=== PATIENT | female | born 1955 | race Caucasian/White ===

== ENCOUNTER 2020-06-01 11:42 | Outpatient (REF) | payer MEDICARE, SELFPAY | END 2020-06-01 11:43 | disposition home or self-care (01) | LOC: HO.LAB 11:42 | PROVIDERS: Visit Provider Internal Medicine | DX: Z20.828 Contact with and (suspected) exposure to other viral communicable diseases (principal) | CPT/HCPCS: C9803; U0003 ==

== ENCOUNTER 2022-02-11 20:47 | Emergency (ER) | payer MEDICARE, OTHER, SELFPAY ==
--- NOTE | ~2022-02-11 | XR_ITS ---
EXAMINATION: XR CHEST CLINICAL INFORMATION: Chest pain COMPARISON: None TECHNIQUE: Frontal view of the chest was obtained. FINDINGS: No significant abnormality is noted involving the heart, lungs, mediastinum, or soft tissues. There are degenerative changes of the spine. XR/XR chest 1V IMPRESSION: Unremarkable examination.
--- NOTE | 2022-02-11 20:50 | ED.CHESTPAIN ---
HPI - Chest Pain General Chief Complaint: Chest Pain Stated Complaint: chest pain Time Seen by Provider: 02/11/22 20:49 Source: patient Mode of arrival: EMS Limitations: no limitations History of Present Illness HPI narrative: Patient's anxiety , depression, hypertension, hypothyroidism brought by EMS as she woke up from nap with mid chest pain radiating to both arms feels sharp and pressure feeling no nausea no vomiting no shortness of breath pain gets worse with taking a deep breath no known coronary artery disease in the past. Patient denies any significant anxiety at this time feel depressed as usual patient received 4 baby aspirin prior to arrival patient also complaining of dysuria and frequency for last 2 days no fever or chills no flank pain Related Data Previous Rx's Medication Instructions Recorded cefuroxime axetil 500 mg tablet 500 mg PO BID 7 days #14 tabs 02/12/22 Allergies Allergy/AdvReac Type Severity Reaction Status Date / Time Sulfa (Sulfonamide Allergy Unknown HIVES Unverified 03/16/20 18:29 Antibiotics) [SULFA(SULFONAMIDE ANTIBIOTICS)] Review of Systems Review of Systems: Yes all other systems are reviewed and are negative [facility] Social History Social History Advance Directives: No Advance Directives Information Provided: No Patient : No Physical Exam Vital Signs: Vital Signs: Last Vital Signs Temp 97.6 F 02/12/22 00:29 Pulse 83 02/12/22 00:29 Resp 14 02/12/22 00:29 BP 148/76 H 02/12/22 00:29 Pulse Ox 98 02/12/22 00:29 O2 Del Method 02/12/22 00:29 BMI result Body Mass Index 34.4 Appearance: Alert. Oriented X3. No acute distress. anxious Eyes: PERRLA, No Nystagmus ENT: Pharynx normal. Oral Mucosa moist Neck: Normal inspection. Neck supple. CVS: Normal heart rate and rhythm. Pulses normal. Respiratory: No respiratory distress. Equal air entry bilateral, no wheezing/rales/rhonchi Abdomen: Soft and nontender. Bowel sounds are present, no mass palpable, no CVA tenderness Skin: Skin warm and dry. Normal skin color. Normal skin turgor. Extremities: No lower extremity edema. No calf tenderness Neuro: Oriented X 3. No motor deficit. No sensory deficit.No cerebellar signs , cranial nerves II-XII intact MDM - Chest Pain MDM Narrative Medical decision making narrative: Patient with atypical chest pain with anxiety and headaches EKG without any acute ischemic changes 2 sets of cardiac enzymes negative will discharge patient home advised to follow-up with supervisor scouring pads/PCP Lab Data Attestation: I reviewed the patient's lab results. Result diagrams: 02/11/22 21:16 02/11/22 21:16 Labs: Lab Results 02/11/22 02/11/22 02/11/22 Range/Units 20:58 21:16 21:16 WBC 9.0 (4.8-10.8) X10*3/uL RBC 4.64 (4.20-5.50) X10*6/uL Hgb 13.7 (12.0-16.0) g/dl Hct 40.1 (37.0-47.0) % MCV 86.4 (80.0-98.0) fL MCH 29.5 (27.0-33.0) pg MCHC 34.2 (31.0-35.0) g/dl RDW 15.0 (11.0-16.0) % Plt Count 324 (160-400) X10*3/uL MPV 9.7 (9.4-12.3) fL Immature Gran % (Auto) 0.2 (0.0-0.4) % Neut % (Auto) 55.1 (45-73) % Lymph % (Auto) 31.6 (20-40) % [place] % (Auto) 9.4 (2-11) % Eos % (Auto) 2.8 (0-4) % Baso % (Auto) 0.9 (0-2) % Lymph # (Auto) 2.9 (1.2-4.9) X10*3/uL [place] # (Auto) 0.9 (0.1-1.2) X10*3/uL Eos # (Auto) 0.3 (0.0-0.4) X10*3/uL Baso # (Auto) 0.1 (0.0-0.2) X10*3/uL Abs Immat Gran (auto) 0.02 (0.00-0.03) X10*3/uL Absolute Neuts (auto) 5.0 (2.0-8.3) x10*3/uL Absolute Nucleated RBC 0.000 (0.0-0.012) X10*3/uL Nucleated RBC % (auto) 0.0 (0.0-0.2) /100WBC PT (10.0-13.1) SEC INR (0.9-1.1) D-Dimer High Sensitivty NG/ML Sodium 140 (135-145) mmol/L Potassium 3.5 (3.3-5.1) mmol/L Chloride 100 (96-108) mmol/L Carbon Dioxide 27 (22-29) mmol/L Anion Gap 17 (12-20) BUN 26 H (9-16) mg/dL Creatinine 1.16 (0.5-1.4) mg/dL Estim Creat Clear Calc 53.5 Estimated GFR 47 POC Glucose 94 (60-115) mg/dL Random Glucose 103 (60-115) mg/dL Calcium 10.1 (8.4-10.2) mg/dL Magnesium 2.3 (1.6-2.6) mg/dL Total Bilirubin 0.6 (0.0-1.0) mg/dL AST 31 (5-31) U/L ALT 41 H (0-31) U/L Alkaline Phosphatase 96 (39-117) U/L Troponin I High Sens (<3.5-17.0) ng/L Total Protein 8.2 H (6.5-8.0) g/dL Albumin 4.4 (3.5-5.0) g/dL TSH 16.65 H (0.32-4.0) uIU/mL Urine Color Urine Appearance Urine pH (5.0-8.0) Ur Specific [place] (1.005-1.025) Urine Protein (NEG-TRACE) MG/DL Urine Glucose (UA) (NEG) MG/DL Urine Ketones (NEG) MG/DL Urine Blood (NEG) Urine Nitrite (NEG) Ur Leukocyte Esterase (Negative) Urine RBC (0) /HPF Urine WBC (0-4) /HPF Ur Squamous Epith Cells /LPF Urine Bacteria /LPF COVID-19 ([facility]BERTO) (Negative) COVID-19 Clin Com 02/11/22 02/11/22 02/11/22 Range/Units 21:16 21:16 21:16 WBC (4.8-10.8) X10*3/uL RBC (4.20-5.50) X10*6/uL Hgb (12.0-16.0) g/dl Hct (37.0-47.0) % MCV (80.0-98.0) fL MCH (27.0-33.0) pg MCHC (31.0-35.0) g/dl RDW (11.0-16.0) % Plt Count (160-400) X10*3/uL MPV (9.4-12.3) fL Immature Gran % (Auto) (0.0-0.4) % Neut % (Auto) (45-73) % Lymph % (Auto) (20-40) % [place] % (Auto) (2-11) % Eos % (Auto) (0-4) % Baso % (Auto) (0-2) % Lymph # (Auto) (1.2-4.9) X10*3/uL [place] # (Auto) (0.1-1.2) X10*3/uL Eos # (Auto) (0.0-0.4) X10*3/uL Baso # (Auto) (0.0-0.2) X10*3/uL Abs Immat Gran (auto) (0.00-0.03) X10*3/uL Absolute Neuts (auto) (2.0-8.3) x10*3/uL Absolute Nucleated RBC (0.0-0.012) X10*3/uL Nucleated RBC % (auto) (0.0-0.2) /100WBC PT 10.5 (10.0-13.1) SEC INR 0.9 (0.9-1.1) D-Dimer High Sensitivty < 150 NG/ML Sodium (135-145) mmol/L Potassium (3.3-5.1) mmol/L Chloride (96-108) mmol/L Carbon Dioxide (22-29) mmol/L Anion Gap (12-20) BUN (9-16) mg/dL Creatinine (0.5-1.4) mg/dL Estim Creat Clear Calc Estimated GFR POC Glucose (60-115) mg/dL Random Glucose (60-115) mg/dL Calcium (8.4-10.2) mg/dL Magnesium (1.6-2.6) mg/dL Total Bilirubin (0.0-1.0) mg/dL AST (5-31) U/L ALT (0-31) U/L Alkaline Phosphatase (39-117) U/L Troponin I High Sens 7.5 (<3.5-17.0) ng/L Total Protein (6.5-8.0) g/dL Albumin (3.5-5.0) g/dL TSH (0.32-4.0) uIU/mL Urine Color Urine Appearance Urine pH (5.0-8.0) Ur Specific [place] (1.005-1.025) Urine Protein (NEG-TRACE) MG/DL Urine Glucose (UA) (NEG) MG/DL Urine Ketones (NEG) MG/DL Urine Blood (NEG) Urine Nitrite (NEG) Ur Leukocyte Esterase (Negative) Urine RBC (0) /HPF Urine WBC (0-4) /HPF Ur Squamous Epith Cells /LPF Urine Bacteria /LPF COVID-19 ([facility]ERTO) Negative (Negative) COVID-19 Clin Com See Note 02/11/22 02/11/22 Range/Units 23:21 23:47 WBC (4.8-10.8) X10*3/uL RBC (4.20-5.50) X10*6/uL Hgb (12.0-16.0) g/dl Hct (37.0-47.0) % MCV (80.0-98.0) fL MCH (27.0-33.0) pg MCHC (31.0-35.0) g/dl RDW (11.0-16.0) % Plt Count (160-400) X10*3/uL MPV (9.4-12.3) fL Immature Gran % (Auto) (0.0-0.4) % Neut % (Auto) (45-73) % Lymph % (Auto) (20-40) % [place] % (Auto) (2-11) % Eos % (Auto) (0-4) % Baso % (Auto) (0-2) % Lymph # (Auto) (1.2-4.9) X10*3/uL [place] # (Auto) (0.1-1.2) X10*3/uL Eos # (Auto) (0.0-0.4) X10*3/uL Baso # (Auto) (0.0-0.2) X10*3/uL Abs Immat Gran (auto) (0.00-0.03) X10*3/uL Absolute Neuts (auto) (2.0-8.3) x10*3/uL Absolute Nucleated RBC (0.0-0.012) X10*3/uL Nucleated RBC % (auto) (0.0-0.2) /100WBC PT (10.0-13.1) SEC INR (0.9-1.1) D-Dimer High Sensitivty NG/ML Sodium (135-145) mmol/L Potassium (3.3-5.1) mmol/L Chloride (96-108) mmol/L Carbon Dioxide (22-29) mmol/L Anion Gap (12-20) BUN (9-16) mg/dL Creatinine (0.5-1.4) mg/dL Estim Creat Clear Calc Estimated GFR POC Glucose (60-115) mg/dL Random Glucose (60-115) mg/dL Calcium (8.4-10.2) mg/dL Magnesium (1.6-2.6) mg/dL Total Bilirubin (0.0-1.0) mg/dL AST (5-31) U/L ALT (0-31) U/L Alkaline Phosphatase (39-117) U/L Troponin I High Sens 6.3 (<3.5-17.0) ng/L Total Protein (6.5-8.0) g/dL Albumin (3.5-5.0) g/dL TSH (0.32-4.0) uIU/mL Urine Color YELLOW Urine Appearance CLEAR Urine pH 7.0 (5.0-8.0) Ur Specific [place] 1.010 (1.005-1.025) Urine Protein Negative (NEG-TRACE) MG/DL Urine Glucose (UA) Negative (NEG) MG/DL Urine Ketones Negative (NEG) MG/DL Urine Blood Trace (NEG) Urine Nitrite Negative (NEG) Ur Leukocyte Esterase Large (3+) H (Negative) Urine RBC 1-4 (0) /HPF Urine WBC 30-49 H (0-4) /HPF Ur Squamous Epith Cells 1+ /LPF Urine Bacteria 2+ /LPF COVID-19 ([facility]) (Negative) COVID-19 Clin Com ECG Data ECG #1: Attestation: I personally reviewed and interpreted this ECG as follows: Interpretation: Sinus tachycardia with heart rate 113 beats per minute normal interval normal axis nonspecific ST T wave changes no acute ischemia Scores Heart Score History: -0- slightly suspicious ECG: -0- normal Age: -1- >45 - <65 Risk factory: -1- 1 or 2 risk factors Troponin: -0- < or = normal limit Score: 2 Risk: 1.7% Discharge Plan Discharge Clinical Impression: Chest pain, UTI (urinary tract infection) Patient Disposition: Home, Self-Care Instructions: Chest Pain (ED), Urinary Tract Infection in Women (ED) Additional Instructions: Your chest pain is likely not from the heart Follow-up with PCP/supervisor scouring pads for further evaluation including stress test you need to follow-up with your PCP regarding management of hypothyroidism Drink plenty of fluids Antibiotic as advised for urine tract infection Prescriptions: New cefuroxime axetil 500 mg tablet 500 mg PO BID 7 Days Qty: 14 0RF
[2022-02-11 20:53] VITALS: BP 170/100; BP 190/101; PULSE 112; PULSE 130; RESP 18; TEMP 36.8; O2SAT 97; O2SAT 98; BMI 34.4
[2022-02-11 21:00] VITALS: BP 160/93; PULSE 108; O2SAT 99
[2022-02-11 21:01] LABS: Glucose, Whole Blood 94 mg/dL (60-115)
--- NOTE | 2022-02-11 21:08 | ECG_ITS ---
Test Reason : cp Blood Pressure : / mmHG Vent. Rate : 113 BPM Atrial Rate : 113 BPM P-R Int : 152 ms QRS Dur : 082 ms QT Int : 308 ms P-R-T Axes : 054 052 019 degrees QTc Int : 422 ms Sinus tachycardia Nonspecific T wave abnormality Abnormal ECG No previous ECGs available Referred By: Nawaf Simon Electronically Signed By:KOLTON MIKE
[2022-02-11] MEDS: LORazepam 1 MG TABLET PO (21:11)
[2022-02-11] MEDS: Morphine Sulfate 4 MG/ML CARTRIDGE IVPUSH (21:19)
[2022-02-11] MEDS: ondansetron HCL 4 MG/2 ML VIAL IVPUSH (21:19)
[2022-02-11 21:22] LABS: MANUAL DIFF FLAG NO
[2022-02-11 21:23] LABS: Basophils Absolute Auto 0.1 X10*3/uL (0.0-0.2); Basophils Percent Auto 0.9 % (0-2); Eosinophils Absolute Auto 0.3 X10*3/uL (0.0-0.4); Eosinophils Percent Auto 2.8 % (0-4); Hematocrit 40.1 % (37.0-47.0); Hemoglobin 13.7 g/dl (12.0-16.0); Imm Gran Abs Auto 0.02 X10*3/uL (0.00-0.03); Imm Gran Pct Auto 0.2 % (0.0-0.4); Lymphocytes Absolute Auto 2.9 X10*3/uL (1.2-4.9); Lymphocytes Percent Auto 31.6 % (20-40); Mean Corpuscular HGB Conc 34.2 g/dl (31.0-35.0); Mean Corpuscular Hemoglobin 29.5 pg (27.0-33.0); Mean Corpuscular Volume 86.4 fL (80.0-98.0); Mean Platelet Volume 9.7 fL (9.4-12.3); Monocytes Absolute Auto 0.9 X10*3/uL (0.1-1.2); Monocytes Percent Auto 9.4 % (2-11); Neutrophils Percent Auto 55.1 % (45-73); Platelet Count 324 X10*3/uL (160-400); Red Blood Count 4.64 X10*6/uL (4.20-5.50)
[2022-02-11 21:34] LABS: INTERNATIONAL NORM RATIO 0.9 (0.9-1.1); Prothrombin Time 10.5 SEC (10.0-13.1)
[2022-02-11 21:38] LABS: COVID-19 Test Negative (Negative)
[2022-02-11 21:43] LABS: Alanine Aminotransferase 41 U/L (0-31); Albumin Level 4.4 g/dL (3.5-5.0); Alkaline Phosphatase 96 U/L (39-117); Anion Gap 17 (12-20); Aspartate Amino Transferase 31 U/L (5-31); Bilirubin Total 0.6 mg/dL (0.0-1.0); Blood Urea Nitrogen 26 mg/dL (9-16); Calcium 10.1 mg/dL (8.4-10.2); Carbon Dioxide 27 mmol/L (22-29); Chloride 100 mmol/L (96-108); Creatinine Clr Calc Pharmacy 53.5; Estimated Glomerular Filt Rate 47; Glucose Random 103 mg/dL (60-115); Magnesium 2.3 mg/dL (1.6-2.6); Potassium 3.5 mmol/L (3.3-5.1); Sodium 140 mmol/L (135-145); Total Protein 8.2 g/dL (6.5-8.0)
[2022-02-11 21:44] LABS: D Dimer High Sensitivity < 150 NG/ML
[2022-02-11 21:45] LABS: Troponin-I High Sensitivity 7.5 ng/L (<3.5-17.0)
[2022-02-11 22:02] LABS: Thyroid Stimulating Hormone 16.65 uIU/mL (0.32-4.0)
[2022-02-11 22:22] VITALS: BP 148/86; PULSE 75; RESP 20; TEMP 36.7; O2SAT 99
[2022-02-11] MEDS: Butalb/Acetamin/Caff 50/325/40 TABLET 1 TAB PO (22:33)
[2022-02-11 22:34] VITALS: RESP 16
[2022-02-11 23:45] LABS: Troponin-I High Sensitivity 6.3 ng/L (<3.5-17.0)
[2022-02-12 00:03] LABS: Appearance Urine CLEAR; Color Urine YELLOW; Glucose Urine UA Negative (NEG); Leukocyte Esterase Urine Large (3+) (Negative); Nitrite Urine Negative (NEG); Urine Blood Trace (NEG); Urine Ketones Negative (NEG); Urine Protein Negative (NEG-TRACE)
[2022-02-12 00:15] LABS: WBC Urine 30-49 /HPF (0-4)
[2022-02-12 00:16] LABS: Bacteria Urine 2+ /LPF; Squamous Epithelial Cell Urine 1+ /LPF
[2022-02-12 00:29] VITALS: BP 148/76; PULSE 83; RESP 14; TEMP 36.4; O2SAT 98
[2022-02-12 00:45] LABS: Free T4 (Free Thyroxine) 0.74 ng/dL (0.71-1.85)
== END 2022-02-12 00:44 | disposition home or self-care (01) ==
PROVIDERS: Emergency Provider Internal Medicine
DX: R07.9 Chest pain, unspecified (principal); N39.0 Urinary tract infection, site not specified; Z20.822 Contact with and (suspected) exposure to COVID-19; I10 Essential (primary) hypertension; F41.9 Anxiety disorder, unspecified
CPT/HCPCS: 36415; 71045; 80053; 81001; 81003; 82947; 83735; 84439; 84443; 84484; 85025; 85379; 85610; 87635; 93005; 96374; 96375; 99284; 99285; J2270; J2405

== ENCOUNTER 2022-05-05 11:18 | Emergency (ER) | payer MEDICARE, OTHER, SELFPAY ==
--- NOTE | 2022-05-05 11:28 | PC.NURSE ---
CALLED FOR THREAT ANALYST
[2022-05-05 11:42] VITALS: BP 158/88; PULSE 81; RESP 18; TEMP 36.8; O2SAT 97; BMI 33.3
[2022-05-05 12:21] LABS: Appearance Urine Clear; Color Urine Yellow; Glucose Urine UA Negative (Negative); Leukocyte Esterase Urine Small (1+) (Negative); Nitrite Urine Negative (Negative); Specific Gravity - Urine <= 1.005 (1.005-1.025); UMIC TRIGGER UACC YES; Urine Blood Negative (Negative); Urine Ketones Negative (Negative); Urine Protein Negative (Neg-Trace)
[2022-05-05 12:29] LABS: Bacteria Urine None Seen (None Seen); Hyaline Casts Urine 0-2 /LPF (0-2); RBC Urine 0-2 /HPF (0-2); Squamous Epithelial Cell Urine 0-2 /HPF (0-2); UACC Culture Trigger YES; WBC Urine 0-5 /HPF (0-5)
== END 2022-05-05 17:02 | disposition left against medical advice (07) ==
PROVIDERS: Emergency Provider Emergency Medicine
DX: M79.601 Pain in right arm (principal); R30.0 Dysuria; Z79.899 Other long term (current) drug therapy
CPT/HCPCS: 81001; 87086; 99282

== ENCOUNTER 2022-07-16 15:21 | Emergency (ER) | payer MEDICARE, OTHER, SELFPAY ==
--- NOTE | ~2022-07-16 | CT_ITS ---
EXAMINATION: CT CHEST, ABDOMEN AND PELVIS WITHOUT CONTRAST CLINICAL INFORMATION: Chest discomfort/burning and left-sided flank pain with history of kidney stones COMPARISON: No pertinent prior studies are available for comparison. TECHNIQUE: Multidetector volumetric imaging was performed from the thoracic inlet through the pubic symphysis without IV contrast. Sagittal and coronal reformatted images were obtained on the technologist's workstation. This CT examination was performed using dose optimization techniques as appropriate, variously including the following: *Automated exposure control *Adjustment of mA and/or kV according to patient size (this includes techniques or standardized protocols for targeted exams where dose is matched to indication/reason for exam; i.e. extremities or head) *Use of iterative reconstruction technique DLP: 211 chest and 711 abdomen and pelvis mGy-cm FINDINGS: CHEST: Lung: A calcified granuloma is present at the right lung base and at tiny 2 mm noncalcified nodule present at the left apex (7:84). The lungs are otherwise clear without worrisome focal opacity or nodule. Mediastinum: The mediastinum is normal. The central vascular structures are unremarkable. No hilar or mediastinal lymphadenopathy. No coronary calcification is seen. Pericardium/Pleura: No significant effusion. No pleural mass or thickening. Chest Wall/Axilla: Unremarkable ABDOMEN/PELVIS: Peritoneal Space: No significant free air or free fluid identified. Liver, Gallbladder, Biliary Tree: The liver is enlarged measuring over 19 cm in cephalocaudad dimension with decreased attenuation consistent with hepatic steatosis. No focal hepatic lesion or biliary ductal dilatation is present. The gallbladder is unremarkable with no evidence of radiopaque gallstones, gallbladder wall thickening, or obvious pericholecystic inflammatory changes. Pancreas: Unremarkable Spleen: Unremarkable Adrenal Glands: Unremarkable Kidneys and Ureters: The kidneys are normal in size, shape, and attenuation. There is a 6 mm nonobstructing calculus present at the lower pole of the right kidney that measures 800 Hounsfield units and is 13 cm from the posterior axillary line. A smaller adjacent calculus is also present No hydronephrosis, hydroureter, or additional calculi seen. No perinephric stranding. Bladder: Unremarkable Gastrointestinal Tract: The small and large bowel are unremarkable. The appendix is is not seen with certainty but there is no evidence of appendicitis. Abdominal Wall: No significant hernia is appreciated. Lymph Nodes: No lymphadenopathy. Vascular: The aorta appears unremarkable with some minimal calcified plaque. The IVC appears unremarkable. PELVIC VISCERA: The uterus and adnexa are unremarkable. A pessary is in place OSSEUS STRUCTURES: Moderate degenerative changes are noted in the spine, most marked at L2-L3 and L3-L4. No bony destructive lesions are seen. CT/CT abdomen pelvis wo IV con IMPRESSION: 1. A cause for the patient's left-sided flank pain and left-sided flank pain has not been found. 2. Incidental note made of calcified pulmonary granuloma and tiny 2 mm noncalcified left apical nodule. 3. Enlarged fatty liver. 4. Nonobstructing right renal calculi. 5. Degenerative changes in the spine. 6. A pessary is in place. Fleischner guidelines were followed.
--- NOTE | ~2022-07-16 | CT_ITS ---
EXAMINATION: CT HEAD WITHOUT CONTRAST CT CERVICAL SPINE WITHOUT CONTRAST CLINICAL INFORMATION: Headache. Neck pain. COMPARISON: CT head from 08/24/2019 TECHNIQUE: Contiguous axial imaging was performed from the skull base to vertex without intravenous administration of contrast. Contiguous axial imaging was performed from the upper chest through the skull base without intravenous administration of contrast. Coronal and sagittal reformats were obtained at the acquisition workstation. This CT examination was performed using dose optimization techniques as appropriate, variously including the following: *Automated exposure control. *Adjustment of mA and/or kV according to patient size (this includes techniques or standardized protocols for targeted exams where dose is matched to indication/reason for exam; i.e. extremities or head). *Use of iterative reconstruction technique. DLP: 1257 mGy-cm FINDINGS: Head: There is no evidence of acute intracranial hemorrhage or edematous territorial infarction. Chronic lacunar infarct of the frontal horn of the right lateral ventricle. No new loss of garber-white matter differentiation. Scattered and partially confluent hypoattenuation in the periventricular and deep white matter are consistent with moderate microangiopathy. The ventricles are normal in morphology and size. No evidence for obstructive hydrocephalus. No abnormal mass effect or midline shift. No extra-axial fluid collections. No acute soft tissue or osseous abnormalities. Subcutaneous soft tissue thickening in the bilateral malar regions suggestive of prior injection sites. Mild mucosal thickening of the paranasal sinuses. Mild leftward nasal septal deviation. The mastoid air cells and middle ear cavities are clear. Cervical Spine: The atlantooccipital and atlantoaxial articulations remain well aligned. Mild reversal the normal cervical lordosis centered on C5-C6. Mild degenerative anterolisthesis of C4 on C5. Mild degenerative retrolisthesis of C6 on C7. Otherwise, there is anatomic alignment of the vertebral bodies and posterior elements. No evidence of acute fracture or subluxation. The vertebral body heights are maintained. Advanced degenerative disc disease at C5-C6 and C6-C7. Facet and uncovertebral joint arthropathy leads to osseous encroachment on the neural foramina from C5-T1. There is no prevertebral soft tissue swelling. 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 The thyroid gland and remaining cervical soft tissues are normal in appearance. The lung apices demonstrate no abnormalities. CT/CT cervical spine wo IV con IMPRESSION: 1. No evidence of acute intracranial hemorrhage or edematous territorial infarction. 2. Moderate underlying microangiopathy and generalized cerebral volume loss. Chronic lacunar infarct of the frontal horn of the right lateral ventricle. 3. No evidence of acute fracture or traumatic subluxation of the cervical spine. Moderate multilevel degenerative spondyloarthropathy of the cervical spine.
[2022-07-16 15:55] VITALS: BP 181/89; PULSE 78; RESP 14; TEMP 36.3; O2SAT 99; BMI 31.6
--- NOTE | 2022-07-16 15:57 | ECG_ITS ---
Test Reason : SHOULDER BACK /ARM PAIN L Blood Pressure : / mmHG Vent. Rate : 076 BPM Atrial Rate : 076 BPM P-R Int : 150 ms QRS Dur : 094 ms QT Int : 394 ms P-R-T Axes : 049 037 023 degrees QTc Int : 443 ms Normal sinus rhythm Minimal voltage criteria for LVH, may be normal variant ( Sokolow-Melgar ) Borderline ECG When compared with ECG of 11-FEB-2022 20:54, Vent. rate has decreased BY [address] no longer depressed in Anterior leads Referred By: Lance Watts Electronically Signed By:YUNIEL COLEMAN MD
--- NOTE | 2022-07-16 16:00 | ED.GENADULT ---
HPI - General Adult General Chief complaint: Back Pain/Injury Stated complaint: shoulder and back pain Time Seen by Provider: 07/16/22 19:25 Related Data Previous Rx's Medication Instructions Recorded cefuroxime axetil 500 mg tablet 500 mg PO BID 7 days #14 tabs 02/12/22 cyclobenzaprine 10 mg tablet 10 mg PO TID PRN pain #14 tabs 07/16/22 ibuprofen 400 mg tablet 400 mg PO Q6H PRN pain #20 tabs 07/16/22 Allergies Allergy/AdvReac Type Severity Reaction Status Date / Time Sulfa (Sulfonamide Allergy Unknown HIVES Verified 05/05/22 11:42 Antibiotics) [SULFA(SULFONAMIDE ANTIBIOTICS)] REPLACED BY [facility] Social History Social History Advance Directives: No Advance Directives Information Provided: No Physical Exam ED Vital Signs: Vital Signs - 24 hr 07/16/22 15:55 Temperature 97.3 F Pulse Rate 78 Respiratory Rate 14 Blood Pressure 181/89 H Pulse Oximetry 99 Oxygen Delivery Method Room Air BMI result Body Mass Index 31.6 Course Course Course Narrative: RME: 66 nazario willams presents to the ED for mutiple complaints such as left flank pain, dysuria, left shoulder pain, headache, and chest pain since yesterday. labs, EKG, and imaging ordered. SARS ordered Medications Administered Discontinued Medications Generic Name Dose Route Start Last Admin Trade Name Freq PRN Reason Stop Dose Admin Hydromorphone HCl 0.5 mg 07/16/22 20:35 07/16/22 21:42 Hydromorphone Hcl 0.5 Mg/0.5 Ml Syringe IVPUSH 07/16/22 20:36 0.5 mg ONCE ONE Administration Protocol Ketorolac Tromethamine 30 mg 07/16/22 20:35 07/16/22 21:43 Ketorolac Tromethamine 30 Mg/Ml Vial IVPUSH 07/16/22 20:36 30 mg ONCE ONE Administration Lorazepam 0.5 mg 07/16/22 20:35 07/16/22 21:43 Lorazepam 2 Mg/Ml Vial IVPUSH 07/16/22 20:36 0.5 mg ONCE ONE Administration Medical Decision Making Lab Data 07/16/22 16:30 07/16/22 16:30 Labs: Lab Results 07/16/22 07/16/22 07/16/22 Range/Units 16:30 16:30 16:30 WBC 5.3 (4.8-10.8) X10*3/uL RBC 4.46 (4.20-5.50) X10*6/uL Hgb 13.2 (12.0-16.0) g/dl Hct 38.9 (37.0-47.0) % MCV 87.2 (80.0-98.0) fL MCH 29.6 (27.0-33.0) pg MCHC 33.9 (31.0-35.0) g/dl RDW 14.1 (11.0-16.0) % Plt Count 327 (160-400) X10*3/uL MPV 9.5 (9.4-12.3) fL Immature Gran % (Auto) 0.2 (0.0-0.4) % Neut % (Auto) 43.7 L (45-73) % Lymph % (Auto) 41.9 H (20-40) % [place] % (Auto) 8.4 (2-11) % Eos % (Auto) 4.3 H (0-4) % Baso % (Auto) 1.5 (0-2) % Lymph # (Auto) 2.2 (1.2-4.9) X10*3/uL [place] # (Auto) 0.5 (0.1-1.2) X10*3/uL Eos # (Auto) 0.2 (0.0-0.4) X10*3/uL Baso # (Auto) 0.1 (0.0-0.2) X10*3/uL Abs Immat Gran (auto) 0.01 (0.00-0.03) X10*3/uL Absolute Neuts (auto) 2.3 (2.0-8.3) x10*3/uL Absolute Nucleated RBC 0.000 (0.0-0.012) X10*3/uL Nucleated RBC % (auto) 0.0 (0.0-0.2) /100WBC PT 10.7 (10.0-13.1) SEC INR 0.9 (0.9-1.1) APTT 36.1 (26.0-36.4) SEC Sodium 141 (135-145) mmol/L Potassium 4.0 (3.3-5.1) mmol/L Chloride 102 (96-108) mmol/L Carbon Dioxide 28 (22-29) mmol/L Anion Gap 15 (12-20) BUN 20 H (9-16) mg/dL Creatinine 0.92 (0.5-1.4) mg/dL Estim Creat Clear Calc 66.9 Estimated GFR > 60 Random Glucose 102 (60-115) mg/dL Calcium 10.2 (8.4-10.2) mg/dL Total Bilirubin 0.6 (0.0-1.0) mg/dL AST 24 (5-31) U/L ALT 35 H (0-31) U/L Alkaline Phosphatase 104 (39-117) U/L Troponin I High Sens (<3.5-17.0) ng/L B-Natriuretic Peptide (<100) pg/mL Total Protein 8.1 H (6.5-8.0) g/dL Albumin 4.4 (3.5-5.0) g/dL Lipase 35 (8-78) U/L Urine Color Urine Appearance Urine pH (5.0-9.0) Ur Specific [place] (1.005-1.025) Urine Protein (Neg-Trace) mg/dL Urine Glucose (UA) (Negative) mg/dL Urine Ketones (Negative) mg/dL Urine Blood (Negative) Urine Nitrite (Negative) Ur Leukocyte Esterase (Negative) Urine RBC (0-2) /HPF Urine WBC (0-5) /HPF Ur Squamous Epith Cells (0-2) /HPF Urine Bacteria (None Seen) Hyaline Casts (0-2) /LPF Influenza Type A (PCR) (Negative) Influenza Type B (PCR) (Negative) RSV RNA Qual (PCR) (Negative) SARS-CoV-2 RNA (RT-PCR) (Negative) 07/16/22 07/16/22 07/16/22 Range/Units 16:30 16:30 16:30 WBC (4.8-10.8) X10*3/uL RBC (4.20-5.50) X10*6/uL Hgb (12.0-16.0) g/dl Hct (37.0-47.0) % MCV (80.0-98.0) fL MCH (27.0-33.0) pg MCHC (31.0-35.0) g/dl RDW (11.0-16.0) % Plt Count (160-400) X10*3/uL MPV (9.4-12.3) fL Immature Gran % (Auto) (0.0-0.4) % Neut % (Auto) (45-73) % Lymph % (Auto) (20-40) % [place] % (Auto) (2-11) % Eos % (Auto) (0-4) % Baso % (Auto) (0-2) % Lymph # (Auto) (1.2-4.9) X10*3/uL [place] # (Auto) (0.1-1.2) X10*3/uL Eos # (Auto) (0.0-0.4) X10*3/uL Baso # (Auto) (0.0-0.2) X10*3/uL Abs Immat Gran (auto) (0.00-0.03) X10*3/uL Absolute Neuts (auto) (2.0-8.3) x10*3/uL Absolute Nucleated RBC (0.0-0.012) X10*3/uL Nucleated RBC % (auto) (0.0-0.2) /100WBC PT (10.0-13.1) SEC INR (0.9-1.1) APTT (26.0-36.4) SEC Sodium (135-145) mmol/L Potassium (3.3-5.1) mmol/L Chloride (96-108) mmol/L Carbon Dioxide (22-29) mmol/L Anion Gap (12-20) BUN (9-16) mg/dL Creatinine (0.5-1.4) mg/dL Estim Creat Clear Calc Estimated GFR Random Glucose (60-115) mg/dL Calcium (8.4-10.2) mg/dL Total Bilirubin (0.0-1.0) mg/dL AST (5-31) U/L ALT (0-31) U/L Alkaline Phosphatase (39-117) U/L Troponin I High Sens 3.4 (<3.5-17.0) ng/L B-Natriuretic Peptide < 10 (<100) pg/mL Total Protein (6.5-8.0) g/dL Albumin (3.5-5.0) g/dL Lipase (8-78) U/L Urine Color Urine Appearance Urine pH (5.0-9.0) Ur Specific [place] (1.005-1.025) Urine Protein (Neg-Trace) mg/dL Urine Glucose (UA) (Negative) mg/dL Urine Ketones (Negative) mg/dL Urine Blood (Negative) Urine Nitrite (Negative) Ur Leukocyte Esterase (Negative) Urine RBC (0-2) /HPF Urine WBC (0-5) /HPF Ur Squamous Epith Cells (0-2) /HPF Urine Bacteria (None Seen) Hyaline Casts (0-2) /LPF Influenza Type A (PCR) NEGATIVE (Negative) Influenza Type B (PCR) NEGATIVE (Negative) RSV RNA Qual (PCR) NEGATIVE (Negative) SARS-CoV-2 RNA (RT-PCR) NEGATIVE (Negative) 07/16/22 Range/Units 16:30 WBC (4.8-10.8) X10*3/uL RBC (4.20-5.50) X10*6/uL Hgb (12.0-16.0) g/dl Hct (37.0-47.0) % MCV (80.0-98.0) fL MCH (27.0-33.0) pg MCHC (31.0-35.0) g/dl RDW (11.0-16.0) % Plt Count (160-400) X10*3/uL MPV (9.4-12.3) fL Immature Gran % (Auto) (0.0-0.4) % Neut % (Auto) (45-73) % Lymph % (Auto) (20-40) % [place] % (Auto) (2-11) % Eos % (Auto) (0-4) % Baso % (Auto) (0-2) % Lymph # (Auto) (1.2-4.9) X10*3/uL [place] # (Auto) (0.1-1.2) X10*3/uL Eos # (Auto) (0.0-0.4) X10*3/uL Baso # (Auto) (0.0-0.2) X10*3/uL Abs Immat Gran (auto) (0.00-0.03) X10*3/uL Absolute Neuts (auto) (2.0-8.3) x10*3/uL Absolute Nucleated RBC (0.0-0.012) X10*3/uL Nucleated RBC % (auto) (0.0-0.2) /100WBC PT (10.0-13.1) SEC INR (0.9-1.1) APTT (26.0-36.4) SEC Sodium (135-145) mmol/L Potassium (3.3-5.1) mmol/L Chloride (96-108) mmol/L Carbon Dioxide (22-29) mmol/L Anion Gap (12-20) BUN (9-16) mg/dL Creatinine (0.5-1.4) mg/dL Estim Creat Clear Calc Estimated GFR Random Glucose (60-115) mg/dL Calcium (8.4-10.2) mg/dL Total Bilirubin (0.0-1.0) mg/dL AST (5-31) U/L ALT (0-31) U/L Alkaline Phosphatase (39-117) U/L Troponin I High Sens (<3.5-17.0) ng/L B-Natriuretic Peptide (<100) pg/mL Total Protein (6.5-8.0) g/dL Albumin (3.5-5.0) g/dL Lipase (8-78) U/L Urine Color Yellow Urine Appearance Cloudy Urine pH 7.0 (5.0-9.0) Ur Specific [place] <= 1.005 (1.005-1.025) Urine Protein Negative (Neg-Trace) mg/dL Urine Glucose (UA) Negative (Negative) mg/dL Urine Ketones Negative (Negative) mg/dL Urine Blood Negative (Negative) Urine Nitrite Negative (Negative) Ur Leukocyte Esterase Small (1+) H (Negative) Urine RBC 0-2 (0-2) /HPF Urine WBC 11-20 H (0-5) /HPF Ur Squamous Epith Cells 0-2 (0-2) /HPF Urine Bacteria None Seen (None Seen) Hyaline Casts 0-2 (0-2) /LPF Influenza Type A (PCR) (Negative) Influenza Type B (PCR) (Negative) RSV RNA Qual (PCR) (Negative) SARS-CoV-2 RNA (RT-PCR) (Negative) Discharge Plan Discharge Clinical Impression: Lumbar radiculopathy, Sciatica, Thoracic back pain Patient Disposition: Home, Self-Care Instructions: Acute Low Back Pain (ED) Additional Instructions: ?Incidental note made of calcified pulmonary granuloma and tiny 2 mm noncalcified left apical nodule. Please follow-up with this finding. Prescriptions: New ibuprofen 400 mg tablet 400 mg PO Q6H PRN (Reason: pain) Qty: 20 0RF cyclobenzaprine 10 mg tablet 10 mg PO TID PRN (Reason: pain) Qty: 14 0RF No Action cefuroxime axetil 500 mg tablet 500 mg PO BID 7 Days Qty: 14 0RF Referrals: [facility] [Physician] - 2 days Interventions: ED Discharge Assessment Last Done: 07/16/22 22:56 Discharge Date/Time: 07/16/22 22:56
[2022-07-16 16:42] LABS: MANUAL DIFF FLAG NO
[2022-07-16 16:45] LABS: Basophils Absolute Auto 0.1 X10*3/uL (0.0-0.2); Basophils Percent Auto 1.5 % (0-2); Eosinophils Absolute Auto 0.2 X10*3/uL (0.0-0.4); Eosinophils Percent Auto 4.3 % (0-4); Hematocrit 38.9 % (37.0-47.0); Hemoglobin 13.2 g/dl (12.0-16.0); Imm Gran Abs Auto 0.01 X10*3/uL (0.00-0.03); Imm Gran Pct Auto 0.2 % (0.0-0.4); Lymphocytes Absolute Auto 2.2 X10*3/uL (1.2-4.9); Lymphocytes Percent Auto 41.9 % (20-40); Mean Corpuscular HGB Conc 33.9 g/dl (31.0-35.0); Mean Corpuscular Hemoglobin 29.6 pg (27.0-33.0); Mean Corpuscular Volume 87.2 fL (80.0-98.0); Mean Platelet Volume 9.5 fL (9.4-12.3); Monocytes Absolute Auto 0.5 X10*3/uL (0.1-1.2); Monocytes Percent Auto 8.4 % (2-11); Neutrophils Absolute Auto 2.3 x10*3/uL (2.0-8.3); Neutrophils Percent Auto 43.7 % (45-73); Platelet Count 327 X10*3/uL (160-400); Red Blood Count 4.46 X10*6/uL (4.20-5.50); Red Cell Distribution Width 14.1 % (11.0-16.0); White Blood Count 5.3 X10*3/uL (4.8-10.8)
[2022-07-16 16:47] LABS: Appearance Urine Cloudy; Color Urine Yellow; Glucose Urine UA Negative (Negative); Leukocyte Esterase Urine Small (1+) (Negative); Nitrite Urine Negative (Negative); Specific Gravity - Urine <= 1.005 (1.005-1.025); UMIC TRIGGER UACC YES; Urine Blood Negative (Negative); Urine Ketones Negative (Negative); Urine Protein Negative (Neg-Trace)
[2022-07-16 16:49] LABS: Bacteria Urine None Seen (None Seen); Hyaline Casts Urine 0-2 /LPF (0-2); RBC Urine 0-2 /HPF (0-2); Squamous Epithelial Cell Urine 0-2 /HPF (0-2); UACC Culture Trigger YES
[2022-07-16 16:53] LABS: INTERNATIONAL NORM RATIO 0.9 (0.9-1.1); Prothrombin Time 10.7 SEC (10.0-13.1)
[2022-07-16 16:55] LABS: Partial Thromboplastin Time 36.1 SEC (26.0-36.4)
[2022-07-16 17:03] LABS: Alanine Aminotransferase 35 U/L (0-31); Albumin Level 4.4 g/dL (3.5-5.0); Alkaline Phosphatase 104 U/L (39-117); Anion Gap 15 (12-20); Aspartate Amino Transferase 24 U/L (5-31); Bilirubin Total 0.6 mg/dL (0.0-1.0); Blood Urea Nitrogen 20 mg/dL (9-16); Calcium 10.2 mg/dL (8.4-10.2); Carbon Dioxide 28 mmol/L (22-29); Chloride 102 mmol/L (96-108); Creatinine Clr Calc Pharmacy 66.9; Estimated Glomerular Filt Rate > 60; Glucose Random 102 mg/dL (60-115); Lipase 35 U/L (8-78); Sodium 141 mmol/L (135-145); Total Protein 8.1 g/dL (6.5-8.0)
[2022-07-16 17:08] LABS: B Type Natriuretic Peptide < 10 pg/mL (<100)
[2022-07-16 17:11] LABS: Troponin-I High Sensitivity 3.4 ng/L (<3.5-17.0)
[2022-07-16 17:25] LABS: Influenza A PCR NEGATIVE (Negative); Influenza B PCR NEGATIVE (Negative); Resp Syncy Virus RNA Qual PCR NEGATIVE (Negative); SARS COV2 PCR INHOUSE NEGATIVE (Negative)
--- NOTE | 2022-07-16 19:54 | ED.BACK ---
HPI - Back Pain/Injury General Chief Complaint: Back Pain/Injury Stated Complaint: shoulder and back pain Time Seen by Provider: 07/16/22 19:25 History of Present Illness HPI Narrative: Patient is a 66-year-old female presents today with having left lower back pain flank pain radiating down to the legs. Patient denies any bowel urinary incontinence. Denies any focal weakness. No fever no chills. No nausea no vomiting. History of similar pains in the past. The pain is sharp. MD elicited complaint: back pain Onset (ago): month(s) Severity: moderate Similar Symptoms Previously: No Quality: sharp Location: lumbar spine, left upper back and left lower back Radiation: none Exacerbating factors: none Relieving factors: none Associated symptoms: denies other symptoms Related Data Previous Rx's Medication Instructions Recorded cefuroxime axetil 500 mg tablet 500 mg PO BID 7 days #14 tabs 02/12/22 cyclobenzaprine 10 mg tablet 10 mg PO TID PRN pain #14 tabs 07/16/22 ibuprofen 400 mg tablet 400 mg PO Q6H PRN pain #20 tabs 07/16/22 Allergies Allergy/AdvReac Type Severity Reaction Status Date / Time Sulfa (Sulfonamide Allergy Unknown HIVES Verified 05/05/22 11:42 Antibiotics) [SULFA(SULFONAMIDE ANTIBIOTICS)] Review of Systems Review of Systems: No fever no chills no focal weakness Yes all other systems are reviewed and are negative [facility] Past Medical History Attestation statement: The following information was validated with the patient. Social History Social History Advance Directives: No Advance Directives Information Provided: No Physical Exam Vital Signs: Vital Signs: Last Vital Signs Temp 97.3 F 07/16/22 15:55 Pulse 78 07/16/22 15:55 Resp 14 07/16/22 15:55 BP 181/89 H 07/16/22 15:55 Pulse Ox 99 07/16/22 15:55 O2 Del Method 07/16/22 15:55 BMI result Body Mass Index 31.6 Appearance: Alert. Oriented X3. No acute distress. Eyes: Pupils equal, round and reactive to light. ENT: Pharynx normal. Neck: Normal inspection. Neck supple. No lymph nodes noted. No crepitus CVS: Normal heart rate and rhythm. Pulses normal. Normal S1 and S2 Respiratory: No respiratory distress. Breath sounds normal. No Wheezing. No rales Abdomen: Soft and nontender. No rigidity. No distention. good BS x4 Skin: Skin warm and dry. Normal skin color. Normal skin turgor. Extremities: No lower extremity edema. Neurovascular intact to all extremities. No Lacerations. No Rash Neuro: Oriented X 3. No motor deficit. No sensory deficit. Moving all extermities. No slurred speech Medical Decision Making Differential Diagnosis patient has back pain radiates from the back all the way down to the hip area. Question have a headache as well. No fever no chills. No focal weakness. no bowel urinary incontinence. No evidence for cauda equina syndrome.The pain is sharp. Question abdominal pathology versus chest pathology causing this. Patient neurologically intact. Pupil equal reactive. LFTs are normal no evidence for biliary disease. Pain is on the left side not on the right. No posterior C-spine tenderness. No clavicular tenderness. Well appearing. CT scan of the chest abdomen pelvis was done. Question apical nodule was noted. Otherwise CT was negative. Patient's electrolytes unremarkable. Will discharge patient home Admission/Observation Consideration of admission/observation: Escalation of care including admission/observation considered Lab Data MDM Lab Attestation statement: I reviewed the patient's lab results. 07/16/22 16:30 07/16/22 16:30 Labs: Lab Results 07/16/22 07/16/22 07/16/22 Range/Units 16:30 16:30 16:30 WBC 5.3 (4.8-10.8) X10*3/uL RBC 4.46 (4.20-5.50) X10*6/uL Hgb 13.2 (12.0-16.0) g/dl Hct 38.9 (37.0-47.0) % MCV 87.2 (80.0-98.0) fL MCH 29.6 (27.0-33.0) pg MCHC 33.9 (31.0-35.0) g/dl RDW 14.1 (11.0-16.0) % Plt Count 327 (160-400) X10*3/uL MPV 9.5 (9.4-12.3) fL Immature Gran % (Auto) 0.2 (0.0-0.4) % Neut % (Auto) 43.7 L (45-73) % Lymph % (Auto) 41.9 H (20-40) % Bailey % (Auto) 8.4 (2-11) % Eos % (Auto) 4.3 H (0-4) % Baso % (Auto) 1.5 (0-2) % Lymph # (Auto) 2.2 (1.2-4.9) X10*3/uL Bailey # (Auto) 0.5 (0.1-1.2) X10*3/uL Eos # (Auto) 0.2 (0.0-0.4) X10*3/uL Baso # (Auto) 0.1 (0.0-0.2) X10*3/uL Abs Immat Gran (auto) 0.01 (0.00-0.03) X10*3/uL Absolute Neuts (auto) 2.3 (2.0-8.3) x10*3/uL Absolute Nucleated RBC 0.000 (0.0-0.012) X10*3/uL Nucleated RBC % (auto) 0.0 (0.0-0.2) /100WBC PT 10.7 (10.0-13.1) SEC INR 0.9 (0.9-1.1) APTT 36.1 (26.0-36.4) SEC Sodium 141 (135-145) mmol/L Potassium 4.0 (3.3-5.1) mmol/L Chloride 102 (96-108) mmol/L Carbon Dioxide 28 (22-29) mmol/L Anion Gap 15 (12-20) BUN 20 H (9-16) mg/dL Creatinine 0.92 (0.5-1.4) mg/dL Estim Creat Clear Calc 66.9 Estimated GFR > 60 Random Glucose 102 (60-115) mg/dL Calcium 10.2 (8.4-10.2) mg/dL Total Bilirubin 0.6 (0.0-1.0) mg/dL AST 24 (5-31) U/L ALT 35 H (0-31) U/L Alkaline Phosphatase 104 (39-117) U/L Troponin I High Sens (<3.5-17.0) ng/L B-Natriuretic Peptide (<100) pg/mL Total Protein 8.1 H (6.5-8.0) g/dL Albumin 4.4 (3.5-5.0) g/dL Lipase 35 (8-78) U/L Urine Color Urine Appearance Urine pH (5.0-9.0) Ur Specific [place] (1.005-1.025) Urine Protein (Neg-Trace) mg/dL Urine Glucose (UA) (Negative) mg/dL Urine Ketones (Negative) mg/dL Urine Blood (Negative) Urine Nitrite (Negative) Ur Leukocyte Esterase (Negative) Urine RBC (0-2) /HPF Urine WBC (0-5) /HPF Ur Squamous Epith Cells (0-2) /HPF Urine Bacteria (None Seen) Hyaline Casts (0-2) /LPF Influenza Type A (PCR) (Negative) Influenza Type B (PCR) (Negative) RSV RNA Qual (PCR) (Negative) SARS-CoV-2 RNA (RT-PCR) (Negative) 07/16/22 07/16/22 07/16/22 Range/Units 16:30 16:30 16:30 WBC (4.8-10.8) X10*3/uL RBC (4.20-5.50) X10*6/uL Hgb (12.0-16.0) g/dl Hct (37.0-47.0) % MCV (80.0-98.0) fL MCH (27.0-33.0) pg MCHC (31.0-35.0) g/dl RDW (11.0-16.0) % Plt Count (160-400) X10*3/uL MPV (9.4-12.3) fL Immature Gran % (Auto) (0.0-0.4) % Neut % (Auto) (45-73) % Lymph % (Auto) (20-40) % Bailey % (Auto) (2-11) % Eos % (Auto) (0-4) % Baso % (Auto) (0-2) % Lymph # (Auto) (1.2-4.9) X10*3/uL Bailey # (Auto) (0.1-1.2) X10*3/uL Eos # (Auto) (0.0-0.4) X10*3/uL Baso # (Auto) (0.0-0.2) X10*3/uL Abs Immat Gran (auto) (0.00-0.03) X10*3/uL Absolute Neuts (auto) (2.0-8.3) x10*3/uL Absolute Nucleated RBC (0.0-0.012) X10*3/uL Nucleated RBC % (auto) (0.0-0.2) /100WBC PT (10.0-13.1) SEC INR (0.9-1.1) APTT (26.0-36.4) SEC Sodium (135-145) mmol/L Potassium (3.3-5.1) mmol/L Chloride (96-108) mmol/L Carbon Dioxide (22-29) mmol/L Anion Gap (12-20) BUN (9-16) mg/dL Creatinine (0.5-1.4) mg/dL Estim Creat Clear Calc Estimated GFR Random Glucose (60-115) mg/dL Calcium (8.4-10.2) mg/dL Total Bilirubin (0.0-1.0) mg/dL AST (5-31) U/L ALT (0-31) U/L Alkaline Phosphatase (39-117) U/L Troponin I High Sens 3.4 (<3.5-17.0) ng/L B-Natriuretic Peptide < 10 (<100) pg/mL Total Protein (6.5-8.0) g/dL Albumin (3.5-5.0) g/dL Lipase (8-78) U/L Urine Color Urine Appearance Urine pH (5.0-9.0) Ur Specific [place] (1.005-1.025) Urine Protein (Neg-Trace) mg/dL Urine Glucose (UA) (Negative) mg/dL Urine Ketones (Negative) mg/dL Urine Blood (Negative) Urine Nitrite (Negative) Ur Leukocyte Esterase (Negative) Urine RBC (0-2) /HPF Urine WBC (0-5) /HPF Ur Squamous Epith Cells (0-2) /HPF Urine Bacteria (None Seen) Hyaline Casts (0-2) /LPF Influenza Type A (PCR) NEGATIVE (Negative) Influenza Type B (PCR) NEGATIVE (Negative) RSV RNA Qual (PCR) NEGATIVE (Negative) SARS-CoV-2 RNA (RT-PCR) NEGATIVE (Negative) 07/16/22 Range/Units 16:30 WBC (4.8-10.8) X10*3/uL RBC (4.20-5.50) X10*6/uL Hgb (12.0-16.0) g/dl Hct (37.0-47.0) % MCV (80.0-98.0) fL MCH (27.0-33.0) pg MCHC (31.0-35.0) g/dl RDW (11.0-16.0) % Plt Count (160-400) X10*3/uL MPV (9.4-12.3) fL Immature Gran % (Auto) (0.0-0.4) % Neut % (Auto) (45-73) % Lymph % (Auto) (20-40) % Bailey % (Auto) (2-11) % Eos % (Auto) (0-4) % Baso % (Auto) (0-2) % Lymph # (Auto) (1.2-4.9) X10*3/uL Bailey # (Auto) (0.1-1.2) X10*3/uL Eos # (Auto) (0.0-0.4) X10*3/uL Baso # (Auto) (0.0-0.2) X10*3/uL Abs Immat Gran (auto) (0.00-0.03) X10*3/uL Absolute Neuts (auto) (2.0-8.3) x10*3/uL Absolute Nucleated RBC (0.0-0.012) X10*3/uL Nucleated RBC % (auto) (0.0-0.2) /100WBC PT (10.0-13.1) SEC INR (0.9-1.1) APTT (26.0-36.4) SEC Sodium (135-145) mmol/L Potassium (3.3-5.1) mmol/L Chloride (96-108) mmol/L Carbon Dioxide (22-29) mmol/L Anion Gap (12-20) BUN (9-16) mg/dL Creatinine (0.5-1.4) mg/dL Estim Creat Clear Calc Estimated GFR Random Glucose (60-115) mg/dL Calcium (8.4-10.2) mg/dL Total Bilirubin (0.0-1.0) mg/dL AST (5-31) U/L ALT (0-31) U/L Alkaline Phosphatase (39-117) U/L Troponin I High Sens (<3.5-17.0) ng/L B-Natriuretic Peptide (<100) pg/mL Total Protein (6.5-8.0) g/dL Albumin (3.5-5.0) g/dL Lipase (8-78) U/L Urine Color Yellow Urine Appearance Cloudy Urine pH 7.0 (5.0-9.0) Ur Specific [place] <= 1.005 (1.005-1.025) Urine Protein Negative (Neg-Trace) mg/dL Urine Glucose (UA) Negative (Negative) mg/dL Urine Ketones Negative (Negative) mg/dL Urine Blood Negative (Negative) Urine Nitrite Negative (Negative) Ur Leukocyte Esterase Small (1+) H (Negative) Urine RBC 0-2 (0-2) /HPF Urine WBC 11-20 H (0-5) /HPF Ur Squamous Epith Cells 0-2 (0-2) /HPF Urine Bacteria None Seen (None Seen) Hyaline Casts 0-2 (0-2) /LPF Influenza Type A (PCR) (Negative) Influenza Type B (PCR) (Negative) RSV RNA Qual (PCR) (Negative) SARS-CoV-2 RNA (RT-PCR) (Negative) Discharge Plan Discharge Clinical Impression: Lumbar radiculopathy, Sciatica, Thoracic back pain Patient Disposition: Home, Self-Care Instructions: Acute Low Back Pain (ED) Prescriptions: New ibuprofen 400 mg tablet 400 mg PO Q6H PRN (Reason: pain) Qty: 20 0RF cyclobenzaprine 10 mg tablet 10 mg PO TID PRN (Reason: pain) Qty: 14 0RF No Action cefuroxime axetil 500 mg tablet 500 mg PO BID 7 Days Qty: 14 0RF Referrals: [facility] [Physician] - 2 days
--- NOTE | 2022-07-16 20:22 | PC.NURSE ---
patient a&ox3, pt workup was negative, provider at bedside, pt being discharged after new set of vitals
[2022-07-16 20:26] VITALS: BP 172/86; PULSE 85; RESP 18; TEMP 36.6
--- NOTE | 2022-07-16 20:33 | PC.NURSE ---
patient a&ox3, c/o pain/crying and upset, dr lanza notified, vss, will continue to monitor.
[2022-07-16] MEDS: HYDROmorphone HCl 0.5 MG/0.5 ML SYRINGE IVPUSH (21:42)
[2022-07-16] MEDS: Ketorolac Tromethamine 30 MG/ML VIAL IVPUSH (21:43)
[2022-07-16] MEDS: LORazepam 2 MG/ML VIAL 0.5 MG IVPUSH (21:43)
--- NOTE | 2022-07-16 22:37 | PC.NURSE ---
22G IV placed right hand, medicated per provider order, pt verbalizes improvement/tolerating of abd/left flank/back/neck pain.
== END 2022-07-16 22:56 | disposition home or self-care (01) ==
PROVIDERS: Physician Assistant; Emergency Provider Emergency Medicine Emergency Medical Services
DX: M54.16 Radiculopathy, lumbar region (principal); M54.41 Lumbago with sciatica, right side; M54.6 Pain in thoracic spine; M54.2 Cervicalgia; Z20.822 Contact with and (suspected) exposure to COVID-19; Z20.828 Contact with and (suspected) exposure to other viral communicable diseases; Z79.899 Other long term (current) drug therapy
CPT/HCPCS: 0241U; 36415; 70450; 71250; 72125; 74176; 80053; 81001; 83690; 83880; 84484; 85025; 85610; 85730; 87086; 93005; 96374; 96375; 99284; J1170; J1885; J2060

== ENCOUNTER 2022-11-13 10:06 | Emergency (ER) | payer MEDICARE, OTHER, SELFPAY ==
--- NOTE | 2022-11-13 | ECG_ITS ---
Test Reason : CHEST PAIN Blood Pressure : / mmHG Vent. Rate : 088 BPM Atrial Rate : 088 BPM P-R Int : 142 ms QRS Dur : 088 ms QT Int : 370 ms P-R-T Axes : 051 038 041 degrees QTc Int : 447 ms Normal sinus rhythm Minimal voltage criteria for LVH, may be normal variant ( Sokolow-Melgar ) Borderline ECG When compared with ECG of 16-JUL-2022 16:16, No significant change was found Referred By: Generic ED Physician Electronically Signed By:Paulo Riley
--- NOTE | ~2022-11-13 | XR_ITS ---
EXAMINATION: XR CHEST CLINICAL INFORMATION: Cough COMPARISON: None available. TECHNIQUE: 2 views of the chest were obtained. FINDINGS: No significant abnormality is noted involving the heart, lungs, mediastinum, bony thorax or soft tissues. XR/XR chest 2V IMPRESSION: Unremarkable examination.
[2022-11-13 10:09] VITALS: BP 142/85; PULSE 91; RESP 18; TEMP 36.1; O2SAT 98; BMI 33.1
[2022-11-13 10:32] LABS: MANUAL DIFF FLAG NO
[2022-11-13 10:34] LABS: Basophils Absolute Auto 0.1 X10*3/uL (0.0-0.2); Basophils Percent Auto 1.4 % (0-2); Eosinophils Absolute Auto 0.1 X10*3/uL (0.0-0.4); Eosinophils Percent Auto 2.2 % (0-4); Hematocrit 38.1 % (37.0-47.0); Hemoglobin 13.2 g/dl (12.0-16.0); Imm Gran Abs Auto 0.01 X10*3/uL (0.00-0.03); Imm Gran Pct Auto 0.2 % (0.0-0.4); Lymphocytes Absolute Auto 1.9 X10*3/uL (1.2-4.9); Lymphocytes Percent Auto 33.6 % (20-40); Mean Corpuscular HGB Conc 34.6 g/dl (31.0-35.0); Mean Corpuscular Hemoglobin 30.1 pg (27.0-33.0); Mean Corpuscular Volume 86.8 fL (80.0-98.0); Mean Platelet Volume 9.6 fL (9.4-12.3); Monocytes Absolute Auto 0.5 X10*3/uL (0.1-1.2); Monocytes Percent Auto 8.3 % (2-11); Neutrophils Absolute Auto 3.1 x10*3/uL (2.0-8.3); Neutrophils Percent Auto 54.3 % (45-73); Platelet Count 312 X10*3/uL (160-400); Red Blood Count 4.39 X10*6/uL (4.20-5.50); Red Cell Distribution Width 13.9 % (11.0-16.0); White Blood Count 5.8 X10*3/uL (4.8-10.8)
[2022-11-13 10:50] LABS: Alanine Aminotransferase 35 U/L (0-31); Albumin Level 4.2 g/dL (3.5-5.0); Alkaline Phosphatase 91 U/L (39-117); Anion Gap 12 (12-20); Aspartate Amino Transferase 27 U/L (5-31); Bilirubin Total 0.6 mg/dL (0.0-1.0); Blood Urea Nitrogen 18 mg/dL (9-16); Calcium 9.5 mg/dL (8.4-10.2); Carbon Dioxide 28 mmol/L (22-29); Chloride 103 mmol/L (96-108); Creatinine Clr Calc Pharmacy 68.3; Estimated Glomerular Filt Rate > 60; Glucose Random 129 mg/dL (60-115); Potassium 4.1 mmol/L (3.3-5.1); Sodium 139 mmol/L (135-145); Total Protein 7.6 g/dL (6.5-8.0)
--- NOTE | 2022-11-13 10:53 | ED_ITS ---
HPI - General Adult General Chief complaint: General Medical Stated complaint: back pain/ bloody nose Time Seen by Provider: 11/13/22 10:53 Source: patient Limitations: no limitations History of Present Illness HPI narrative: 66-year-old female presents to the ER with multiple complaints. Patient states she has been having ongoing allergies for the last month with yellow discharge from her nose that is often we blood tinged. Patient also states recently she has felt her ears have been blocked. Has had associated dizziness. Patient also states she has had some atraumatic elbow and right hand pain. Patient has longstanding history of high cholesterol hypertension hypothyroidism. Symptoms have been mild to moderate. Patient denies chest pain or shortness of breath. Patient denies any recent sick contacts but patient states no travel history. Patient does not have a local PCP as she removed up from [facility]. Related Data Previous Rx's Medication Instructions Recorded cefuroxime axetil 500 mg tablet 500 mg PO BID 7 days #14 tabs 02/12/22 cyclobenzaprine 10 mg tablet 10 mg PO TID PRN pain #14 tabs 07/16/22 ibuprofen 400 mg tablet 400 mg PO Q6H PRN pain #20 tabs 07/16/22 amoxicillin 500 mg tablet 500 mg PO TID 10 days #30 tabs 11/13/22 Allergies Allergy/AdvReac Type Severity Reaction Status Date / Time Sulfa (Sulfonamide Allergy Unknown HIVES Verified 11/13/22 10:12 Antibiotics) [SULFA(SULFONAMIDE ANTIBIOTICS)] Review of Systems Review of Systems: General: No fever, no chills Ophthalmology: No vision changes, no discharge ENT: Ears blocked, nasal discharge Cardiovascular: No chest pain, no peripheral edema, no shortness of breath Respiratory: No dyspnea, no sputum production, no cough Muscle skeletal: Right elbow hand pain GI: No abdominal pain: no nausea vomiting, no diarrhea : No dysuria, no urgency, no frequency Psychiatric: No depression, no suicidal ideation, no homicidal ideation Skin: No rash Neuro: At time dizziness no headache Immunology: No immunocompromised Hematology: No bleeding, no bruising PMFSH Past Medical History Attestation statement: The following information was validated with the patient. Social History Social History Advance Directives: No Advance Directives Information Provided: Yes Physical Exam ED Vital Signs: Vital Signs - 24 hr 11/13/22 10:09 Temperature 97.0 F Pulse Rate 91 Respiratory Rate 18 Blood Pressure 142/85 H Pulse Oximetry 98 Oxygen Delivery Method Room Air BMI result Body Mass Index 33.1 General appearance: Awake, alert, cooperative, in no acute distress Skin: Warm, dry, no rash Eyes: PERRL, EOMI, no icterus ENT: Bilateral ears no canal edema cm intact, nasal turbinates erythematous positive nasal discharge, oropharynx is otherwise clear Neck: Soft supple full range of motion, no nuchal rigidity, no midline tenderness of the cervical spine Pulmonary: Breath sounds clear to auscultation bilaterally, no accessory muscle use Cardiovascular: Regular rate and rhythm, no murmurs and rubs Abdomen: Soft nontender, no rebound or guarding, positive bowel sounds Extremities: Moving upper lower extremities purposely. Lateral and medial epicondyle of the right elbow are nontender pulses sensation intact. Neuro: Alert oriented x3, no focal deficit Psych: Normal affect Course Course Course Narrative: Seasonal allergies Sinusitis Anemia Otitis media Otitis externa Middle ear infection Viral URI 66-year-old female is currently retired and does not have a local PCP presents the ER with multiple complaints. CBC CMP chest x-ray respiratory swab pending ECG done in triage sinus rhythm at a rate of [address] elevation noted 12:47 400 mg Motrin p.o. 4 mg Zofran ODT Respiratory swab is negative chest x-ray is normal symptoms are consistent with potential sinusitis will treat at this time. Patient is tolerating p.o. well otherwise well-appearing. Patient has migraine medication at home. Will place patient on amoxicillin for sinusitis at this time patient encouraged to get follow-up with local primary care doctor Medications Administered Discontinued Medications Generic Name Dose Route Start Last Admin Trade Name Freq PRN Reason Stop Dose Admin Ibuprofen 400 mg 11/13/22 12:46 11/13/22 12:55 Ibuprofen 400 Mg Tablet PO 11/13/22 12:47 400 mg ONCE ONE Administration Ondansetron HCl 4 mg 11/13/22 12:46 11/13/22 12:55 Ondansetron Odt 4 Mg Tab.Rapdis TRANSLINGU 11/13/22 12:47 4 mg ONCE ONE Administration Medical Decision Making Lab Data 11/13/22 10:28 11/13/22 10:28 Labs: Lab Results 0511/13/22 11/13/22 Range/Units 10:28 10:28 11:14 WBC 5.8 (4.8-10.8) X10*3/uL RBC 4.39 (4.20-5.50) X10*6/uL Hgb 13.2 (12.0-16.0) g/dl Hct 38.1 (37.0-47.0) % MCV 86.8 (80.0-98.0) fL MCH 30.1 (27.0-33.0) pg MCHC 34.6 (31.0-35.0) g/dl RDW 13.9 (11.0-16.0) % Plt Count 312 (160-400) X10*3/uL MPV 9.6 (9.4-12.3) fL Immature Gran % (Auto) 0.2 (0.0-0.4) % Neut % (Auto) 54.3 (45-73) % Lymph % (Auto) 33.6 (20-40) % [place] % (Auto) 8.3 (2-11) % Eos % (Auto) 2.2 (0-4) % Baso % (Auto) 1.4 (0-2) % Lymph # (Auto) 1.9 (1.2-4.9) X10*3/uL [place] # (Auto) 0.5 (0.1-1.2) X10*3/uL Eos # (Auto) 0.1 (0.0-0.4) X10*3/uL Baso # (Auto) 0.1 (0.0-0.2) X10*3/uL Abs Immat Gran (auto) 0.01 (0.00-0.03) X10*3/uL Absolute Neuts (auto) 3.1 (2.0-8.3) x10*3/uL Absolute Nucleated RBC 0.000 (0.0-0.012) X10*3/uL Nucleated RBC % (auto) 0.0 (0.0-0.2) /100WBC Sodium 139 (135-145) mmol/L Potassium 4.1 (3.3-5.1) mmol/L Chloride 103 (96-108) mmol/L Carbon Dioxide 28 (22-29) mmol/L Anion Gap 12 (12-20) BUN 18 H (9-16) mg/dL Creatinine 0.89 (0.5-1.4) mg/dL Estim Creat Clear Calc 68.3 Estimated GFR > 60 Random Glucose 129 H (60-115) mg/dL Calcium 9.5 D (8.4-10.2) mg/dL Total Bilirubin 0.6 (0.0-1.0) mg/dL AST 27 (5-31) U/L ALT 35 H (0-31) U/L Alkaline Phosphatase 91 (39-117) U/L Total Protein 7.6 (6.5-8.0) g/dL Albumin 4.2 (3.5-5.0) g/dL Influenza Type A (PCR) NEGATIVE (Negative) Influenza Type B (PCR) NEGATIVE (Negative) RSV RNA Qual (PCR) NEGATIVE (Negative) SARS-CoV-2 RNA (RT-PCR) NEGATIVE (Negative) Radiology Impression Discussion of test interpretation with radiology: I have reviewed the radiologist's reading. Radiologist Impression: [address] [id number] ReportSigned Patient: Justine CarlsonMR#: [id number]: 8Acct: [id number]/Sex: 66 / FADM Date: 11/13/22Loc: [address]: Ordering Physician: Cirilo Wright Date of Service: 11/13/22 Procedure(s): XR chest 2V Accession Number(s): [id number] cc: Cirilo Wright ~ EXAMINATION: XR CHEST CLINICAL INFORMATION: Cough COMPARISON: None available. TECHNIQUE: 2 views of the chest were obtained. FINDINGS: No significant abnormality is noted involving the heart, lungs, mediastinum, bony thorax or soft tissues. XR/XR chest 2V IMPRESSION: Unremarkable examination. Dictated By:Lauri Johnson MDSigned By:<Electronically signed by Lauri Johnson MD in OV>11/13/22 1156 DD/ 1124TD/TT: Station Cashier: Discharge Plan Discharge Clinical Impression: Sinusitis Patient Disposition: Home, Self-Care Instructions: Sinusitis (ED) Additional Instructions: Increase fluids rest Call PCP for follow-up Return if symptoms worsen Youor symptoms are concerning for seasonal allergy/sinusitis Prescriptions: New amoxicillin 500 mg tablet 500 mg PO TID 10 Days Qty: 30 0RF No Action cefuroxime axetil 500 mg tablet 500 mg PO BID 7 Days Qty: 14 0RF ibuprofen 400 mg tablet 400 mg PO Q6H PRN (Reason: pain) Qty: 20 0RF cyclobenzaprine 10 mg tablet 10 mg PO TID PRN (Reason: pain) Qty: 14 0RF
[2022-11-13 12:20] LABS: Influenza A PCR NEGATIVE (Negative); Influenza B PCR NEGATIVE (Negative); Resp Syncy Virus RNA Qual PCR NEGATIVE (Negative); SARS COV2 PCR INHOUSE NEGATIVE (Negative)
[2022-11-13] MEDS: Ondansetron ODT 4 MG TAB.RAPDIS TRANSLINGU (12:55)
[2022-11-13] MEDS: Ibuprofen 400 MG TABLET PO (12:55)
== END 2022-11-13 13:06 | disposition home or self-care (01) ==
PROVIDERS: Physician Assistant; Emergency Provider Student in an Organized Health Care Education/Training Program; PCP Family Medicine
DX: J32.9 Chronic sinusitis, unspecified (principal); M54.50 Low back pain, unspecified; R07.89 Other chest pain; R05.9 Cough, unspecified; Z20.822 Contact with and (suspected) exposure to COVID-19; Z20.828 Contact with and (suspected) exposure to other viral communicable diseases
CPT/HCPCS: 0241U; 36415; 71046; 80053; 85025; 93005; 99283

== ENCOUNTER 2023-08-06 18:19 | Emergency (ER) | payer OTHER, MEDICARE, SELFPAY ==
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
[2023-08-06 18:33] VITALS: BP 158/74; BP 159/81; PULSE 86; PULSE 98; RESP 16; TEMP 36.6; O2SAT 95; O2SAT 99; BMI 34.4
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
--- NOTE | 2023-08-06 20:02 | PC.NURSE ---
+c-collar. + neuros. pt axox4 able to follow commands appropriately. pt reports needing to urinate; purewick provided. pt repositioned in bed. nad. call lynch within reach.
[2023-08-06] MEDS: Acetaminophen 325 MG TABLET 975 MG PO (20:45)
--- NOTE | 2023-08-06 20:55 | PC.NURSE ---
purewick was out of place. bed linen changed pt cleaned. pt medicated per aug for pain tolerated well with water. awaiting ct results.
[2023-08-06 22:51] VITALS: BP 145/81; PULSE 61; RESP 18; TEMP 36.8; O2SAT 97
[2023-08-06 23:48] LABS: MANUAL DIFF FLAG NO
[2023-08-06 23:51] LABS: Basophils Percent Auto 0.5 % (0-2); Eosinophils Absolute Auto 0.1 X10*3/uL (0.0-0.4); Eosinophils Percent Auto 1.6 % (0-4); Hematocrit 32.5 % (37.0-47.0); Hemoglobin 11.4 g/dl (12.0-16.0); Imm Gran Abs Auto 0.02 X10*3/uL (0.00-0.03); Imm Gran Pct Auto 0.2 % (0.0-0.4); Lymphocytes Percent Auto 24.2 % (20-40); Mean Corpuscular HGB Conc 35.1 g/dl (31.0-35.0); Mean Corpuscular Volume 85.5 fL (80.0-98.0); Mean Platelet Volume 9.8 fL (9.4-12.3); Monocytes Absolute Auto 0.5 X10*3/uL (0.1-1.2); Monocytes Percent Auto 5.9 % (2-11); Neutrophils Absolute Auto 5.5 x10*3/uL (2.0-8.3); Neutrophils Percent Auto 67.6 % (45-73); Platelet Count 234 X10*3/uL (160-400); Red Cell Distribution Width 15.3 % (11.0-16.0); White Blood Count 8.2 X10*3/uL (4.8-10.8)
[2023-08-07 00:02] LABS: Anion Gap 12 (12-20); Blood Urea Nitrogen 16 mg/dL (9-16); C Reactive Protein 12.23 mg/dL (< or = 0.50); Calcium 9.5 mg/dL (8.4-10.2); Carbon Dioxide 28 mmol/L (22-29); Chloride 104 mmol/L (96-108); Estimated Glomerular Filt Rate > 60; Glucose Random 115 mg/dL (60-115); Potassium 3.2 mmol/L (3.3-5.1); Sodium 141 mmol/L (135-145)
[2023-08-07] MEDS: cefuroxime axetiL 500 MG TABLET PO (00:33)
[2023-08-07] MEDS: Ketorolac Tromethamine 30 MG/ML VIAL IM (00:34)
== END 2023-08-07 01:10 | disposition home or self-care (01) ==
PROVIDERS: Emergency Provider Emergency Medicine
DX: T14.8XXA Other injury of unspecified body region, initial encounter (principal); V43.52XA Car driver injured in collision with other type car in traffic accident, initial encounter; M79.10 Myalgia, unspecified site; J18.9 Pneumonia, unspecified organism; Y93.89 Activity, other specified; Y92.410 Unspecified street and highway as the place of occurrence of the external cause; Y99.9 Unspecified external cause status
CPT/HCPCS: 36415; 70450; 71101; 72125; 80048; 85025; 86140; 96372; 99284; J1885

== ENCOUNTER 2023-08-16 16:26 | Emergency (ER) | payer MEDICARE, OTHER, SELFPAY ==
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
[2023-08-16 17:08] VITALS: BP 130/92; BP 171/87; PULSE 69; PULSE 83; RESP 18; TEMP 36.6; O2SAT 95; O2SAT 99; BMI 32.3
[2023-08-16] MEDS: Ketorolac Tromethamine 30 MG/ML VIAL IM (17:50)
[2023-08-16] MEDS: Acetaminophen 325 MG TABLET 975 MG PO (17:50)
[2023-08-16] MEDS: diazePAM 2 MG TABLET PO (17:51)
[2023-08-16 18:23] VITALS: BP 143/76; PULSE 74; RESP 19; TEMP 36.6; O2SAT 98
== END 2023-08-16 18:34 | disposition home or self-care (01) ==
PROVIDERS: Emergency Provider Student in an Organized Health Care Education/Training Program; PCP Family Medicine
DX: M54.50 Low back pain, unspecified (principal); M54.6 Pain in thoracic spine; S06.0X0A Concussion without loss of consciousness, initial encounter; V43.52XA Car driver injured in collision with other type car in traffic accident, initial encounter; Y93.89 Activity, other specified; Y92.410 Unspecified street and highway as the place of occurrence of the external cause; Y99.9 Unspecified external cause status
CPT/HCPCS: 72070; 72100; 96372; 99283; 99284; J1885

== ENCOUNTER 2024-01-09 23:15 | Emergency (ER) | payer MEDICARE, OTHER, SELFPAY ==
--- NOTE | 2024-01-09 | ECG_ITS ---
Test Reason : CHEST PAIN Blood Pressure : / mmHG Vent. Rate : 095 BPM Atrial Rate : 096 BPM P-R Int : 152 ms QRS Dur : 094 ms QT Int : 368 ms P-R-T Axes : 053 043 044 degrees QTc Int : 462 ms Normal sinus rhythm Minimal voltage criteria for LVH, may be normal variant ( Sokolow-Melgar ) Nonspecific T wave abnormality Abnormal ECG When compared with ECG of 13-NOV-2022 10:16, No significant change was found Referred By: Generic ED Physician Electronically Signed By:Paulo Riley
[2024-01-09 23:18] VITALS: BP 156/58; PULSE 100; O2SAT 100
[2024-01-09 23:39] VITALS: BP 146/70; PULSE 90; RESP 20; TEMP 36.8; O2SAT 98; BMI 32.6
[2024-01-10 00:10] LABS: Hemoglobin 12.2 g/dl (12.0-16.0); Mean Corpuscular HGB Conc 35.9 g/dl (31.0-35.0); Mean Corpuscular Hemoglobin 30.7 pg (27.0-33.0); Mean Corpuscular Volume 85.6 fL (80.0-98.0); Mean Platelet Volume 9.1 fL (9.4-12.3); Platelet Count 286 X10*3/uL (160-400); Red Blood Count 3.97 X10*6/uL (4.20-5.50); Red Cell Distribution Width 13.6 % (11.0-16.0); White Blood Count 5.9 X10*3/uL (4.8-10.8)
[2024-01-10 00:25] LABS: Alanine Aminotransferase 26 U/L (0-31); Albumin Level 4.2 g/dL (3.5-5.0); Alkaline Phosphatase 87 U/L (39-117); Anion Gap 13 (12-20); Aspartate Amino Transferase 21 U/L (5-31); Bilirubin Total 0.4 mg/dL (0.0-1.0); Blood Urea Nitrogen 17 mg/dL (9-16); Calcium 9.8 mg/dL (8.4-10.2); Carbon Dioxide 23 mmol/L (22-29); Chloride 105 mmol/L (96-108); Creatinine Clr Calc Pharmacy 73.4; Estimated Glomerular Filt Rate > 60; Glucose Random 115 mg/dL (60-115); Lipase 32 U/L (8-78); Potassium 3.4 mmol/L (3.3-5.1); Sodium 138 mmol/L (135-145); Total Protein 7.6 g/dL (6.5-8.0)
[2024-01-10 00:31] LABS: Troponin-I High Sensitivity 4.1 ng/L (<3.5-17.0)
[2024-01-10 00:54] LABS: Influenza A PCR NEGATIVE (Negative); Influenza B PCR NEGATIVE (Negative); Resp Syncy Virus RNA Qual PCR NEGATIVE (Negative); SARS COV2 PCR INHOUSE NEGATIVE (Negative)
[2024-01-10 01:22] LABS: Appearance Urine Clear; Color Urine Yellow; Glucose Urine UA Negative (Negative); Leukocyte Esterase Urine Negative (Negative); Nitrite Urine Negative (Negative); PH 7.5 (5.0-9.0); Urine Blood Negative (Negative); Urine Ketones Negative (Negative); Urine Protein Negative (Neg-Trace)
[2024-01-10 02:10] VITALS: BP 147/72; PULSE 78; RESP 16; O2SAT 99
[2024-01-10 04:21] VITALS: BP 130/81; PULSE 75; RESP 16; O2SAT 99
--- NOTE | 2024-01-10 04:36 | ED.GENADULT ---
HPI - General Adult General Chief complaint: General Medical Stated complaint: headache bloatness Time Seen by Provider: 01/10/24 04:26 Source: patient and EMS Mode of arrival: EMS Limitations: no limitations History of Present Illness ED Provider: Dr. Nilda Donovan HPI narrative: Patient comes to the emergency room complaining of a migraine headache that started approximately 18 hours ago. Patient takes sumatriptan without any significant relief. Patient complaining a bit lightheaded, no chest pain or shortness of breath, complaining of photophobia, complaining of generalized malaise. Patient also nauseous. No diarrhea. -patient also complaining that she believes that she has a blood in her stool a few days ago. Denies any history of hemorrhoids, blood thinners or previous GI bleed. Related Data Previous Rx's ?Medication ?Instructions ?Recorded cefuroxime axetil 500 mg tablet 500 mg PO BID 7 days #14 tabs 02/12/22 cyclobenzaprine 10 mg tablet 10 mg PO TID PRN pain #14 tabs 07/16/22 ibuprofen 400 mg tablet 400 mg PO Q6H PRN pain #20 tabs 07/16/22 amoxicillin 500 mg tablet 500 mg PO TID 10 days #30 tabs 11/13/22 cyclobenzaprine 10 mg tablet 10 mg PO TID PRN muscle spasm #10 08/06/23 tabs ibuprofen 600 mg tablet 600 mg PO TID PRN pain #20 tabs 08/06/23 cefuroxime axetil 500 mg tablet 500 mg PO BID #14 tabs 08/07/23 cyclobenzaprine 10 mg tablet 10 mg PO TID PRN muscle spasm #15 08/16/23 tabs ibuprofen 600 mg tablet 600 mg PO Q6H PRN pain #30 tabs 08/16/23 lidocaine 5 % topical patch 1 patch topical DAILY #15 ea 08/16/23 (Lidoderm) ketorolac 10 mg tablet 10 mg PO Q8H PRN pain #10 tabs 01/10/24 metoclopramide HCl 5 mg tablet 5 mg PO DAILY PRN nausea and 01/10/24 (Reglan) vomiting #10 tabs Allergies Allergy/AdvReac Type Severity Reaction Status Date / Time Sulfa (Sulfonamide Allergy Unknown HIVES Verified 01/09/24 23:40 Antibiotics) [SULFA(SULFONAMIDE ANTIBIOTICS)] Review of Systems Review of Systems: Constitutional : No Weight loss, No Fever, No Chills, No Night Sweats, No Fatigue, No Malaise ENT/Mouth : No Hearing loss, No Ear Pain, No Nasal Congestion, No Sinus Pain, No Hoarseness, No sore throat, No Rhinorrhea, No Swallowing Difficulty Eyes: No Eye Pain, No Swelling, No Redness, No Foreign Body, No Discharge, No Vision Changes Cardiovascular : No Chest Pain, No SOB, No Dyspnea on Exertion, No Orthopnea, No Edema, No Palpitations Respiratory : No Cough, No Sputum, No Wheezing, No Smoke Exposure, No Dyspnea Gastrointestinal : No Nausea, No Vomiting, No Diarrhea, No Constipation, No abdominal Pain, complaining of possibly seeing blood in the stool Genitourinary : no irregular bleeding, No Dysuria, No Urinary Frequency, No Hematuria, No Urinary Incontinence, No Urgency, No Flank Pain, No Urinary Flow Changes, No Hesitancy Musculoskeletal : No joint pain, No Myalgias, No Joint Swelling Skin : No Skin Lesions, No rash Neuro : No Weakness, No Numbness, No Paresthesias, No Loss of Consciousness, No Dizziness, complaining of a migraine headache Psych : No Anxiety/Panic, No Depression, No SI/HI/AH/VH, No Social Issues, Heme/Lymph: No Bruising, No Bleeding,No Lymphadenopathy Endocrine : No Polyuria, No Polydipsia, No Temperature Intolerance [facility] Social History Social History Advance Directives: No Advance Directives Information Provided: Yes Physical Exam ED Vital Signs: Vital Signs - 24 hr 01/09/24 23:39 01/10/24 02:10 01/10/24 04:21 Temperature 98.3 F Pulse Rate 90 78 75 Respiratory Rate 20 16 16 Blood Pressure 146/70 H 147/72 H 130/81 Pulse Oximetry 98 99 99 Oxygen Delivery Method Room Air Room Air Room Air 01/10/24 04:39 01/10/24 04:40 01/10/24 04:40 Temperature Pulse Rate 68 75 79 Respiratory Rate Blood Pressure 152/72 H 145/71 H 150/73 H Pulse Oximetry Oxygen Delivery Method BMI result Body Mass Index 32.6 Const Other: Appearance: Alert. Oriented X3. No acute distress. Eyes: Pupils equal, round and reactive to light. ENT: Pharynx normal. Neck: Normal inspection. Neck supple. No lymph nodes noted. No crepitus CVS: Normal heart rate and rhythm. Pulses normal. Normal S1 and S2 Respiratory: No respiratory distress. Breath sounds normal. No Wheezing. No rales Abdomen: Soft and nontender. No rigidity, mild diffuse distention. No rebound or guarding Skin: Skin warm and dry. Normal skin color. Normal skin turgor. Extremities: No lower extremity edema. No Lacerations. No Rash Neuro: Oriented X 3. No motor deficit. No sensory deficit. Moving all extremities. No slurred speech. CN 2 through 12 grossly intact, patient walking with steady gait Psych: calm, cooperative, normal affect Course Course Course Narrative: Patient receiving IV fluids, ketorolac, Reglan, Benadryl for migraine Medical Decision Making Medical Decision Making [facility] Narrative: -my interpretation of labs: Normal hematology and chemistry, urinalysis negative, influenza a and B negative Orthostatic vitals negative -patient's labs, normal hematology and chemistry, occult blood negative -patient is source of discomfort likely secondary to migraine headache, and anxiety -patient walking with steady gait, unassisted -patient has no neurological deficits Differential Diagnosis Differential Diagnoses: The differential diagnosis associated with the presentation includes (As above) Admission/Observation Consideration of admission/observation: Escalation of care including admission/observation considered (Given patient's multiple complaints, observation was considered) Lab Data MDM Lab Attestation statement: I reviewed the patient's lab results. 01/10/24 00:03 01/10/24 00:03 Labs: Lab Results 01/10/24 01/10/24 01/10/24 Range/Units 00:03 01:14 04:41 WBC 5.9 (4.8-10.8) X10*3/uL RBC 3.97 L (4.20-5.50) X10*6/uL Hgb 12.2 (12.0-16.0) g/dl Hct 34.0 L (37.0-47.0) % MCV 85.6 (80.0-98.0) fL MCH 30.7 (27.0-33.0) pg MCHC 35.9 H (31.0-35.0) g/dl RDW 13.6 (11.0-16.0) % Plt Count 286 (160-400) X10*3/uL MPV 9.1 L (9.4-12.3) fL Absolute Nucleated RBC 0.000 (0.0-0.012) X10*3/uL Nucleated RBC % (auto) 0.0 (0.0-0.2) /100WBC Sodium 138 (135-145) mmol/L Potassium 3.4 (3.3-5.1) mmol/L Chloride 105 (96-108) mmol/L Carbon Dioxide 23 (22-29) mmol/L Anion Gap 13 (12-20) BUN 17 H (9-16) mg/dL Creatinine 0.80 (0.5-1.4) mg/dL Estim Creat Clear Calc 73.4 Estimated GFR > 60 Random Glucose 115 (60-115) mg/dL Calcium 9.8 (8.4-10.2) mg/dL Total Bilirubin 0.4 (0.0-1.0) mg/dL AST 21 (5-31) U/L ALT 26 (0-31) U/L Alkaline Phosphatase 87 (39-117) U/L Troponin I High Sens 4.1 (<3.5-17.0) ng/L Total Protein 7.6 (6.5-8.0) g/dL Albumin 4.2 (3.5-5.0) g/dL Lipase 32 (8-78) U/L Urine Color Yellow Urine Appearance Clear Urine pH 7.5 (5.0-9.0) Ur Specific [place] 1.010 (1.005-1.025) Urine Protein Negative (Neg-Trace) mg/dL Urine Glucose (UA) Negative (Negative) mg/dL Urine Ketones Negative (Negative) mg/dL Urine Blood Negative (Negative) Urine Nitrite Negative (Negative) Ur Leukocyte Esterase Negative (Negative) Stool Occult Blood NEGATIVE (NEGATIVE) Influenza Type A (PCR) NEGATIVE (Negative) Influenza Type B (PCR) NEGATIVE (Negative) RSV RNA Qual (PCR) NEGATIVE (Negative) SARS-CoV-2 RNA (RT-PCR) NEGATIVE (Negative) Critical Care Time Critical Care Time Critical Care Time: Yes Total Critical Care Time: 30 Attestation: I have personally provided critical care time. Time includes review of lab data, radiology results, discussion with consultants, and monitoring for potential decompensation. Intervention performed as documented. Discharge Plan Discharge Clinical Impression: Migraine, Dizziness Patient Disposition: Home, Self-Care Instructions: Migraine Headache (ED), Dizziness (ED) Additional Instructions: Your labs were unremarkable, you not have blood in the stool. Please follow-up with your primary care physician tomorrow. If you have any worsening or new symptoms, please return to the emergency room or call 911 Prescriptions: New ketorolac 10 mg tablet 10 mg PO Q8H PRN (Reason: pain) Qty: 10 0RF Rx Instructions: Do not use this medication with NSAIDs, only Tylenol if needed metoclopramide HCl [Reglan] 5 mg tablet 5 mg PO DAILY PRN (Reason: nausea and vomiting) Qty: 10 0RF No Action cefuroxime axetil 500 mg tablet 500 mg PO BID 7 Days Qty: 14 0RF ibuprofen 400 mg tablet 400 mg PO Q6H PRN (Reason: pain) Qty: 20 0RF cyclobenzaprine 10 mg tablet 10 mg PO TID PRN (Reason: pain) Qty: 14 0RF amoxicillin 500 mg tablet 500 mg PO TID 10 Days Qty: 30 0RF cyclobenzaprine 10 mg tablet 10 mg PO TID PRN (Reason: muscle spasm) Qty: 15 0RF lidocaine [Lidoderm] 5 % adhesive patch,medicated 1 patch topical DAILY Qty: 15 0RF Rx Instructions: leave on most painful area for up to 12 hrs ibuprofen 600 mg tablet 600 mg PO Q6H PRN (Reason: pain) Qty: 30 0RF ibuprofen 600 mg tablet 600 mg PO TID PRN (Reason: pain) Qty: 20 0RF cyclobenzaprine 10 mg tablet 10 mg PO TID PRN (Reason: muscle spasm) Qty: 10 0RF cefuroxime axetil 500 mg tablet 500 mg PO BID Qty: 14 0RF Print Language: Choose Not To Answer
[2024-01-10 04:39] VITALS: BP 152/72; PULSE 68
[2024-01-10 04:40] VITALS: BP 145/71; BP 150/73; PULSE 75; PULSE 79
[2024-01-10 04:47] LABS: OBS Int Ctl Valid YES; OBS1 NEGATIVE (NEGATIVE)
[2024-01-10] MEDS: 0.9 % Sodium Chloride 1,000 ML 999 ML IVCONT (05:15)
[2024-01-10] MEDS: Ketorolac Tromethamine 30 MG/ML VIAL IVPUSH (05:16)
[2024-01-10] MEDS: diphenhydrAMINE HCL 25 MG CAPSULE 50 MG PO (05:16)
[2024-01-10] MEDS: Metoclopramide HCl 10 MG/2 ML VIAL IVPUSH (05:16)
[2024-01-10 06:19] VITALS: BP 127/73; PULSE 71; RESP 16; O2SAT 99
[2024-01-10 06:30] VITALS: BP 127/73; PULSE 71; RESP 16; TEMP 36.8; O2SAT 99
== END 2024-01-10 06:40 | disposition home or self-care (01) ==
PROVIDERS: Emergency Provider Emergency Medicine
DX: G43.909 Migraine, unspecified, not intractable, without status migrainosus (principal); R42 Dizziness and giddiness; K92.1 Melena; Z03.818 Encounter for observation for suspected exposure to other biological agents ruled out
CPT/HCPCS: 0241U; 36415; 80053; 81003; 82272; 83690; 84484; 85027; 93005; 96361; 96374; 96375; 99284; 99285; J1885; J2765

== ENCOUNTER → 2024-01-09 23:21 | Outpatient (BNV) | payer MEDICARE, OTHER, SELFPAY | PROVIDERS: Emergency Provider Emergency Medicine; Visit Provider Internal Medicine Cardiovascular Disease | DX: R07.9 Chest pain, unspecified (principal); R94.31 Abnormal electrocardiogram [ECG] [EKG] | CPT/HCPCS: 93010 ==

== ENCOUNTER 2024-01-24 22:32 | Emergency (ER) | payer MEDICARE, OTHER, SELFPAY ==
[2024-01-24 22:35] VITALS: BP 170/79; PULSE 76; RESP 19; TEMP 36.6; O2SAT 98; BMI 32.6
--- NOTE | 2024-01-24 22:55 | ED_ITS ---
HPI - Skin/Abscess/Foreign Bdy General Chief complaint: Skin/Abscess/Foreign Body Stated complaint: rt leg bite/leg feels numb/area feels hot Time Seen by Provider: 01/24/24 22:48 Source: patient Mode of arrival: ambulatory Limitations: no limitations History of Present Illness ED Provider: Dr. Nilda Donovan HPI narrative: Patient comes to the emergency room complaining of an insect bite that happened 2 days ago. Patient states she has mild burning sensation and itching around her calf on the right lower extremity. No erythema. No fever or chills. Related Data Previous Rx's ?Medication ?Instructions ?Recorded cefuroxime axetil 500 mg tablet 500 mg PO BID 7 days #14 tabs 02/12/22 cyclobenzaprine 10 mg tablet 10 mg PO TID PRN pain #14 tabs 07/16/22 ibuprofen 400 mg tablet 400 mg PO Q6H PRN pain #20 tabs 07/16/22 amoxicillin 500 mg tablet 500 mg PO TID 10 days #30 tabs 11/13/22 cyclobenzaprine 10 mg tablet 10 mg PO TID PRN muscle spasm #10 08/06/23 tabs ibuprofen 600 mg tablet 600 mg PO TID PRN pain #20 tabs 08/06/23 cefuroxime axetil 500 mg tablet 500 mg PO BID #14 tabs 08/07/23 cyclobenzaprine 10 mg tablet 10 mg PO TID PRN muscle spasm #15 08/16/23 tabs ibuprofen 600 mg tablet 600 mg PO Q6H PRN pain #30 tabs 08/16/23 lidocaine 5 % topical patch 1 patch topical DAILY #15 ea 08/16/23 (Lidoderm) ketorolac 10 mg tablet 10 mg PO Q8H PRN pain #10 tabs 01/10/24 metoclopramide HCl 5 mg tablet 5 mg PO DAILY PRN nausea and 01/10/24 (Reglan) vomiting #10 tabs hydrocortisone 2 % topical gel 1 appl topical TID #28 grams 01/24/24 Allergies Allergy/AdvReac Type Severity Reaction Status Date / Time No Known Allergies Allergy Verified 01/24/24 22:37 Review of Systems Review of Systems: Constitutional : No Weight loss, No Fever, No Chills, No Night Sweats, No Fatigue, No Malaise ENT/Mouth : No Hearing loss, No Ear Pain, No Nasal Congestion, No Sinus Pain, No Hoarseness, No sore throat, No Rhinorrhea, No Swallowing Difficulty Eyes: No Eye Pain, No Swelling, No Redness, No Foreign Body, No Discharge, No Vision Changes Cardiovascular : No Chest Pain, No SOB, No Dyspnea on Exertion, No Orthopnea, No Edema, No Palpitations Respiratory : No Cough, No Sputum, No Wheezing, No Smoke Exposure, No Dyspnea Gastrointestinal : No Nausea, No Vomiting, No Diarrhea, No Constipation, No abdominal Pain, No Hematochezia, No Melena Genitourinary : no irregular bleeding, No Dysuria, No Urinary Frequency, No Hematuria, No Urinary Incontinence, No Urgency, No Flank Pain, No Urinary Flow Changes, No Hesitancy Musculoskeletal : No joint pain, No Myalgias, No Joint Swelling Skin : Burning and itching sensation to the right calf Neuro : No Weakness, No Numbness, No Paresthesias, No Loss of Consciousness, No Dizziness, No Headache Psych : No Anxiety/Panic, No Depression, No SI/HI/AH/VH, No Social Issues, Heme/Lymph: No Bruising, No Bleeding,No Lymphadenopathy Endocrine : No Polyuria, No Polydipsia, No Temperature Intolerance [facility] Social History Social History Advance Directives: No Advance Directives Information Provided: No Do you have a plan to hurt others: No Plan Physical Exam Vital Signs: Vital Signs: Last Vital Signs Temp 98 F 01/24/24 22:35 Pulse 76 01/24/24 22:35 Resp 19 01/24/24 22:35 BP 170/79 H 01/24/24 22:35 Pulse Ox 98 01/24/24 22:35 O2 Del Method Room Air 01/24/24 22:35 BMI result Body Mass Index 32.6 Const: Other: Appearance: Alert. Oriented X3. No acute distress. Eyes: Pupils equal, round and reactive to light. ENT: Pharynx normal. Neck: Normal inspection. Neck supple. No lymph nodes noted. No crepitus CVS: Normal heart rate and rhythm. Pulses normal. Normal S1 and S2 Respiratory: No respiratory distress. Breath sounds normal. No Wheezing. No rales Abdomen: Soft and nontender. No rigidity. No distention. Skin: Skin warm and dry. There is a 0.5 cm insect bite to the lateral aspect of the right calf. No surrounding erythema, no pus drainage, no edema. Extremities: No lower extremity edema. No Lacerations. No Rash Neuro: Oriented X 3. No motor deficit. No sensory deficit. Moving all extremities. No slurred speech. CN 2 through 12 grossly intact Psych: calm, cooperative, normal affect Medical Decision Making Medical Decision Making MDM Narrative: I discussed the physical exam with the patient, at this time, other than topical hydrocortisone for symptomatic relief, no other intervention needed. Patient has been applying [id number] triple antibiotic, states that makes her feel better, patient may continue doing so Discharge Plan Discharge Clinical Impression: Insect bite Patient Disposition: Home, Self-Care Instructions: Cold Compress or Soak (ED) Additional Instructions: Please follow-up with your primary care physician tomorrow. If you have any worsening or new symptoms, please return to the emergency room or call 911 Prescriptions: New hydrocortisone 2 % gel 1 appl topical TID Qty: 28 0RF No Action cefuroxime axetil 500 mg tablet 500 mg PO BID 7 Days Qty: 14 0RF ibuprofen 400 mg tablet 400 mg PO Q6H PRN (Reason: pain) Qty: 20 0RF cyclobenzaprine 10 mg tablet 10 mg PO TID PRN (Reason: pain) Qty: 14 0RF amoxicillin 500 mg tablet 500 mg PO TID 10 Days Qty: 30 0RF cyclobenzaprine 10 mg tablet 10 mg PO TID PRN (Reason: muscle spasm) Qty: 15 0RF lidocaine [Lidoderm] 5 % adhesive patch,medicated 1 patch topical DAILY Qty: 15 0RF Rx Instructions: leave on most painful area for up to 12 hrs ibuprofen 600 mg tablet 600 mg PO Q6H PRN (Reason: pain) Qty: 30 0RF ibuprofen 600 mg tablet 600 mg PO TID PRN (Reason: pain) Qty: 20 0RF cyclobenzaprine 10 mg tablet 10 mg PO TID PRN (Reason: muscle spasm) Qty: 10 0RF cefuroxime axetil 500 mg tablet 500 mg PO BID Qty: 14 0RF ketorolac 10 mg tablet 10 mg PO Q8H PRN (Reason: pain) Qty: 10 0RF Rx Instructions: Do not use this medication with NSAIDs, only Tylenol if needed metoclopramide HCl [Reglan] 5 mg tablet 5 mg PO DAILY PRN (Reason: nausea and vomiting) Qty: 10 0RF Print Language: Choose Not To Answer
[2024-01-24 23:16] VITALS: BP 170/79; PULSE 76; RESP 19; TEMP 36.6; O2SAT 98
== END 2024-01-24 23:17 | disposition home or self-care (01) ==
PROVIDERS: Emergency Provider Emergency Medicine; PCP Family Medicine
DX: S80.861A Insect bite (nonvenomous), right lower leg, initial encounter (principal); W57.XXXA Bitten or stung by nonvenomous insect and other nonvenomous arthropods, initial encounter; Y93.9 Activity, unspecified; Y92.9 Unspecified place or not applicable; Y99.9 Unspecified external cause status
CPT/HCPCS: 99283; 99284

== ENCOUNTER 2024-10-04 18:46 | Emergency (ER) | payer MEDICARE, OTHER, SELFPAY ==
--- NOTE | ~2024-10-04 | XR_ITS ---
CLINICAL HISTORY: constipation 1 view abdomen Comparison: None Findings: No pneumoperitoneum or pneumatosis. No abnormal calcifications. No acute fractures. IMPRESSION: The bowel gas pattern is normal. No significant stool burden. This document has been electronically signed by: Emily Deleon MD on 10/04/2024 20:14:29
[2024-10-04 19:10] VITALS: BP 179/97; PULSE 90; RESP 18; TEMP 37; O2SAT 98; BMI 34.2
--- NOTE | 2024-10-04 19:29 | ED.GENADULT ---
HPI - General Adult General Chief complaint: Abdominal Pain Stated complaint: L side abdominal pain, congestion History of Present Illness HPI narrative: Left without completion of treatment by ED provider. Related Data Previous Rx's ?Medication ?Instructions ?Recorded cefuroxime axetil 500 mg tablet 500 mg PO BID 7 days #14 tabs 02/12/22 cyclobenzaprine 10 mg tablet 10 mg PO TID PRN pain #14 tabs 07/16/22 ibuprofen 400 mg tablet 400 mg PO Q6H PRN pain #20 tabs 07/16/22 amoxicillin 500 mg tablet 500 mg PO TID 10 days #30 tabs 11/13/22 cyclobenzaprine 10 mg tablet 10 mg PO TID PRN muscle spasm #10 08/06/23 tabs ibuprofen 600 mg tablet 600 mg PO TID PRN pain #20 tabs 08/06/23 cefuroxime axetil 500 mg tablet 500 mg PO BID #14 tabs 08/07/23 cyclobenzaprine 10 mg tablet 10 mg PO TID PRN muscle spasm #15 08/16/23 tabs ibuprofen 600 mg tablet 600 mg PO Q6H PRN pain #30 tabs 08/16/23 lidocaine 5 % topical patch 1 patch topical DAILY #15 ea 08/16/23 (Lidoderm) ketorolac 10 mg tablet 10 mg PO Q8H PRN pain #10 tabs 01/10/24 metoclopramide HCl 5 mg tablet 5 mg PO DAILY PRN nausea and 01/10/24 (Reglan) vomiting #10 tabs hydrocortisone 2 % topical gel 1 appl topical TID #28 grams 01/24/24 Allergies Allergy/AdvReac Type Severity Reaction Status Date / Time No Known Allergies Allergy Verified 10/04/24 19:10 [facility] Social History Social History Advance Directives: No Advance Directives Information Provided: No Physical Exam ED Vital Signs: Vital Signs - 24 hr 10/04/24 19:10 Temperature 98.6 F Pulse Rate 90 Respiratory Rate 18 Blood Pressure 179/97 H Pulse Oximetry 98 Oxygen Delivery Method Room Air BMI result Body Mass Index 34.2 Course Course Course Narrative: RME: 68-year-old female presents to ED for lower abdominal pain with nausea vomiting foods like tasting stool. Patient is constipated. Labs KUB ordered. Medications Administered Discontinued Medications Generic Name Dose Route Start Last Admin Trade Name Sherry PRN Reason Stop Dose Admin Acetaminophen 650 mg 10/04/24 21:38 10/04/24 21:42 Acetaminophen 325 Mg Tablet PO 10/04/24 21:39 650 mg ONCE ONE Administration Medical Decision Making Lab Data 10/04/24 19:33 10/04/24 19:33 Labs: Lab Results 10/04/24 Range/Units 19:33 WBC 4.4 L (4.8-10.8) X10*3/uL RBC 3.76 L (4.20-5.50) X10*6/uL Hgb 11.7 L (12.0-16.0) g/dl Hct 32.8 L (37.0-47.0) % MCV 87.2 (80.0-98.0) fL MCH 31.1 (27.0-33.0) pg MCHC 35.7 H (31.0-35.0) g/dl RDW 15.0 (11.0-16.0) % Plt Count 241 (160-400) X10*3/uL MPV 9.7 (9.4-12.3) fL Immature Gran % (Auto) 0.5 H (0.0-0.4) % Neut % (Auto) 57.6 (45-73) % Lymph % (Auto) 28.4 (20-40) % [place] % (Auto) 9.7 (2-11) % Eos % (Auto) 2.9 (0-4) % Baso % (Auto) 0.9 (0-2) % Lymph # (Auto) 1.3 (1.2-4.9) X10*3/uL [place] # (Auto) 0.4 (0.1-1.2) X10*3/uL Eos # (Auto) 0.1 (0.0-0.4) X10*3/uL Baso # (Auto) 0.0 (0.0-0.2) X10*3/uL Abs Immat Gran (auto) 0.02 (0.00-0.03) X10*3/uL Absolute Neuts (auto) 2.6 (2.0-8.3) x10*3/uL Absolute Nucleated RBC 0.000 (0.0-0.012) X10*3/uL Nucleated RBC % (auto) 0.0 (0.0-0.2) /100WBC Sodium 140 (135-145) mmol/L Potassium 3.3 (3.3-5.1) mmol/L Chloride 105 (96-108) mmol/L Carbon Dioxide 25 (22-29) mmol/L Anion Gap 13 (12-20) BUN 18 H (9-16) mg/dL Creatinine 1.16 (0.5-1.4) mg/dL Estim Creat Clear Calc 51.9 Estimated GFR 47 Random Glucose 100 (60-115) mg/dL Calcium 9.7 (8.4-10.2) mg/dL Total Bilirubin 0.4 (0.0-1.0) mg/dL AST 47 H (5-31) U/L ALT 40 H (0-31) U/L Alkaline Phosphatase 76 (39-117) U/L Total Protein 7.7 (6.5-8.0) g/dL Albumin 4.2 (3.5-5.0) g/dL Lipase 19 (8-78) U/L Influenza Type A (PCR) NEGATIVE (Negative) Influenza Type B (PCR) NEGATIVE (Negative) RSV RNA Qual (PCR) NEGATIVE (Negative) SARS-CoV-2 RNA (RT-PCR) POSITIVE A (Negative) Discharge Plan Discharge Clinical Impression: Abdominal pain Patient Disposition: Left W/O Completing Treatment Prescriptions: No Action cefuroxime axetil 500 mg tablet 500 mg PO BID 7 Days Qty: 14 0RF ibuprofen 400 mg tablet 400 mg PO Q6H PRN (Reason: pain) Qty: 20 0RF cyclobenzaprine 10 mg tablet 10 mg PO TID PRN (Reason: pain) Qty: 14 0RF amoxicillin 500 mg tablet 500 mg PO TID 10 Days Qty: 30 0RF cyclobenzaprine 10 mg tablet 10 mg PO TID PRN (Reason: muscle spasm) Qty: 15 0RF lidocaine [Lidoderm] 5 % adhesive patch,medicated 1 patch topical DAILY Qty: 15 0RF Rx Instructions: leave on most painful area for up to 12 hrs ibuprofen 600 mg tablet 600 mg PO Q6H PRN (Reason: pain) Qty: 30 0RF hydrocortisone 2 % gel 1 appl topical TID Qty: 28 0RF ibuprofen 600 mg tablet 600 mg PO TID PRN (Reason: pain) Qty: 20 0RF cyclobenzaprine 10 mg tablet 10 mg PO TID PRN (Reason: muscle spasm) Qty: 10 0RF cefuroxime axetil 500 mg tablet 500 mg PO BID Qty: 14 0RF ketorolac 10 mg tablet 10 mg PO Q8H PRN (Reason: pain) Qty: 10 0RF Rx Instructions: Do not use this medication with NSAIDs, only Tylenol if needed metoclopramide HCl [Reglan] 5 mg tablet 5 mg PO DAILY PRN (Reason: nausea and vomiting) Qty: 10 0RF Discharge Date/Time: 10/04/24 22:26
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
--- OUTSIDE RECORDS SUMMARY | 2024-10-04 19:36 | XMS_ITS | Encounter Summary ---
Author Organization [facility] Address [address] [place] [address] Care Team Providers Care Rn Call Center Name Role Phone Sly Avery DO Primary Care Provider + [phone] Carlie Tillman MD Unavailable [phone] Emery Guerrero MD Unavailable [phone] Encounter Details Date Type Department Care Team (Late Contact Info) Description 08/08/2023 Scanned Document [facility] Department of Pulmonology [place] [address] [place] [address] [address] [place] [address] Wendi Hernandez MD [address] [facility] [address] [place] [address] Social History Tobacco Use Types Packs/Day Years Used Date Smoking Tobacco: Never Smokeless Tobacco: Never Alcohol Use Standard Drinks/Week Comments Yes 2 (1 standard drink = 0.6 oz pur e alcohol) min consumption Sex and Gender Information Value Date Recorded Sex Assigned at Female 07/09/2024 8:46 AM EST Gender Identity Female 07/09/2024 8:46 AM EST Sexual Orientation Heterosexual (straight) 07/09 8:46 AM EST documented as of this encounter Plan of Treatment Upcoming Encounters Date Type Department Care Team (Late st Contact Info) Description 10/05/2024 3:00 PM EDT Consult [facility] Heart & V[facility] [place] [address] [facility] [address] [place] [address] Emery Guerrero MD [address] [facility] [address] [place] [address] 11/08/2024 11:30 AM EDT Office Visit [facility] Department of Pulmonology [place] [address] [facility] [address] [place] [phone] Janessa Gonzalez APRN [address] [place] [address] 12/03/2024 1:00 PM EDT Consult [facility] Department of Endocrinology [place] [address] [facility] [address] [place] [phone] Shazia Rasheed MD [address] [place] [address] documented as of this encounter Visit Diagnoses Not on filedocumented in this encounter Care Teams Rn Call Center Relationship Specialty Start Date End Date Sly Avery DO PCP - General Internal Medicine 10/12/17 Carlie Tillman MD [address] [facility] [address] [place] [address] Obstetrics and Gynecology 09/02/22 Emery Guerrero MD [address] [place] [address] Primary Document Clerk Cardiovascular Disease 08/10/24 documented as of this encounter
--- OUTSIDE RECORDS SUMMARY | 2024-10-04 19:36 | XMS_ITS | Clinical Summary ---
Author Organization [facility] Building Address [address] [place] [address] Phone Care Team Providers Care Pickling Machine Operator Name Role Phone Andry Kiser MD Primary Care Provider [phone] Allergies Active Allergy Reactions Criticality Noted Date Comments Sulfa (Sulfonamide Antibiotics) Rash Low 09/2013 Medications amLODIPine (NORVASC) 5 mg tablet Take 1 tablet (5 mg total) by mouth 1 (one) time each day. 1 Active ARIPiprazole (ABILIFY) 2 mg tablet Take 1 tablet (2 mg total) by mouth. 0 Active atorvastatin (LIPITOR) 80 mg tablet Take 1 tablet (80 mg total) by mouth. 1 Active azelastine (ASTELIN) 137 mcg (0.1 %) nasal spray Administer 2 sprays into affected nostril(s). 2 Active buPROPion XL (WELLBUTRIN XL) 300 mg 24 hr tablet Take 1 tablet (300 mg total) by mouth 1 (one) time each day in the morning. 1 Active cetirizine (ZyrTEC) 10 mg tablet Take 1 tablet (10 mg total) by mouth 1 (one) time each day. 30 each 11 2 Active clonazePAM (KlonoPIN) 2 mg tablet Take 1 tablet (2 mg total) by mouth 3 times daily as needed. Max Daily Amount: 6 mg 0 Active cyclobenzaprine (FLEXERIL) 10 mg tablet Take 1 tablet (10 mg total) by mouth 3 times daily as needed. 2 Active diclofenac (VOLTAREN) 1 % topical gel Place 2 g on the skin 2 times daily as needed. 0 Active dicyclomine (BENTYL) 20 mg tablet Take 1 tablet (20 mg total) by mouth 3 times daily as needed. 1 Active fluticasone propionate (FLONASE) 50 mcg/actuation nasal spray 2 sprays each nostril daily. 1 Active gabapentin (NEURONTIN) 100 mg capsule 1 tab at bedtime. 1 Active ketoconazole (NIZORAL) 2 % cream Apply 1 application topically 1 (one) time each day. 1 Active ketoconazole (NIZORAL) 2 % shampoo Apply topically 2 (two) times a week. Apply to damp skin, lather, leave on 5 minutes, and rinse 2 Active levothyroxine sodium (TIROSINT) 125 mcg capsule Take 1 capsule (125 mcg total) by mouth. 2 Active losartan-hydroC HLOROthiazide (HYZAAR) 100-12.5 mg per tablet Take 1 tablet by mouth 1 (one) time each day. 2 Active lubiprostone (AMITIZA) 24 mcg capsule Take 1 capsule (24 mcg total) by mouth 2 (two) times a day with meals. 2 Active meclizine (ANTIVERT) 25 mg tablet Take 1 tablet (25 mg total) by mouth 1 (one) time each day. 2 Active omega-3 acid ethyl esters (LOVAZA) 1 gram capsule Take 2 capsules (2 g total) by mouth 2 (two) times a day. 2 Active camphor-menthoL (SARNA) lotion Apply topically as needed for itching. 1 Active ondansetron (ZOFRAN) 4 mg tablet Take 1 tablet (4 mg total) by mouth. 1 Active polyethylene glycol (PEG) 17 gram/dose oral powder Take 17 g by mouth. 2 Active QUEtiapine (SEROquel) 25 mg tablet Take 1 tablet (25 mg total) by mouth. Active sertraline (ZOLOFT) 100 mg tablet Take 1 tablet (100 mg total) by mouth. 1 Active SUMAtriptan (IMITREX) 25 mg tablet Take 1 tablet (25 mg total) by mouth every 2 hours as needed. 2 Active temazepam (RESTORIL) 30 mg capsule Take 1 capsule (30 mg total) by mouth. 0 Active semaglutide (Ozempic) 0.25 mg or 0.5 mg(2 mg/1.5 mL) injection pen Inject 0.25 mg under the skin once a week Active estradioL (ESTRING) 2 mg (7.5 mcg /24 hour) vaginal ring Insert 1 ring every 3 months Active ergocalciferol (VITAMIN D-2) 1,250 mcg (50,000 unit) capsule Take 1 capsule by mouth once a week Active Active Problems Problem Noted Date Diagnosed Date Chronic pain of left knee 08/04/2018 Somnolence 08/03/2018 Acute cystitis without hematuria 02/16/2018 Mixed hyperlipidemia 09/15/2017 Eustachian tube dysfunction, right 09/15/2017 Weight gain 09/11/2017 Fatigue 07/17/2016 Low vitamin D level 07/17/2016 Vertigo 07/17/2016 Affective bipolar disorder 07/05/2016 Right carpal tunnel syndrome 04/10/2016 CN (constipation) 03/06/2016 Overview (03/30/2023): IMO Regulatory Update 03/30 Anxiety and depression 03/06/2016 Hypercholesteremia 03/06/2016 Essential hypertension 03/06/2016 Acquired hypothyroidism 03/06/2016 Abdominal pain, left lower quadrant 03/06/2016 Calculus of kidney and ureter 01/11/2016 Midline low back pain without sciatica 6 Aneurysm, cerebral 12/22/2014 Immunizations Name Administration Dates Next Due Influenza Quadrivalent, with preservative (Fluzone; Afluria) 6mo and older 04/10/2016 Influenza, Unspecified 04/13/2022 Influenza, injectable, quadr ivalent, preservative free, pediatric 04/10/2016 Influenza, live, intranasal, quadrivalent (FluMist) 2yo to less than 50yo 04/10/2016 Tdap Tetanus diptheria acell ular pertussis (Boostrix; Adacel) 7yo and older 01/03/2021,10/13/2018 Surgical History Surgery Date Site/Laterality Comments BREAST SURGERY 08/20/2010 Right PROCEDURE:BREAST SURGERY;COMMENT:breast, right core needle biopsy at 7 o'clock. complex fibroadenoma KNEE SURGERY 08/2016 Left PROCEDURE:KNEE SURGERY COLONOSCOPY 05/04/2014 N/A PROCEDURE:COLONOSCOPY;COMMENT:Procedure: COLONOSCOPY, CONSTIPATION; Surgeon: Aryan Dudley DO; Location: [facility] END[facility]; Service: Gastroenterology; Laterality: N/A; MYOMECTOMY 2015 PROCEDURE:MYOMECTOMY Medical History Medical History Date Comments Chronic constipation DX:Chronic constipation Chronic diarrhea DX:Chronic diar kylah Hypertension DX:Hypertension Hyperlipidemia DX:Hyperlipidemi a Asthma DX:Asthma Sleep apnea, obstructive DX:Slee p apnea, obstructive;COMMENT:cpap compliant Depression DX:Depression Anxiety DX:Anxiety Wears glasses DX:Wears glasses Hypothyroidism DX:Hypothyroidis m HERLINDA on CPAP DX:HERLINDA on CPAP GERD (gastroesophageal reflux disease) DX:GERD (gastroesophageal reflux disease) Stroke (CMS/HCC) DX:Stroke ([facility]) ;COMMENT: minor stroke per pt Family History Medical History Relation Name Comments Hypertension Brother JOSÉ ANTONIO Fibromyalgia Daughter 1 DOLMARIE Diabetes Daughter 2 VELISSE Cancer Maternal Grandfather Heart attack Maternal Grandmother Anxiety disorder Mother Arthritis Mother Depression Mother Diabetes Mother Hyperlipidemia Mother Hypertension Mother Diabetes Sister 1 NICKO Heart disease Sister 1 NICKO COPD Sister 2 IRIS stomach Aneurysm Son HEAD Migraines Son Relation Name Status Comments Brother JOSÉ ANTONIO Alive Daughter 1 DOLMARIE Alive Daughter 2 VELISSE Alive Father Maternal Grandfather Maternal Grandmother Mother Alive Paternal Grandfather SUICIDE Paternal Grandmother Sister 1 NICKO Alive Sister 2 IRIS Alive Son Social History Tobacco Use Types Packs/Day Years Used Date Smoking Tobacco: Never Smokeless Tobacco: Never Tobacco Cessation:Counseling Given: Not Answered Alcohol Use Standard Drinks/Week Comments Not Currently 2 (1 standard drink = 0.6 oz pur e alcohol) socially Comments Unknown Sex and Gender Information Value Date Recorded Sex Assigned at Not on file Legal Sex Female 9:06 AM EST Gender Identity Not on file Sexual Orientation Not on file Obstetrics History Last Filed Vital Signs Vital Sign Reading Time Taken Comments Blood Pressure 129/76 02/02/2024 2:18 PM EDT Sitting Left arm Pulse 69 02/02/2024 2:18 PM EDT Temperature - - Respiratory Rate - - Oxygen Saturation - - Inhaled Oxygen Concentration - - Weight 86.7 kg (191 lb 3.2 oz) 02/02/2024 2:18 PM EDT Height 162.6 cm (5' 4 ) 02/02/2024 2:18 PM EDT Body Mass Index 32.82 02/02/2024 2:18 PM EDT Plan of Treatment Upcoming Encounters Date Type Department Care Team (Late st Contact Info) Description 11/11/2024 1:00 PM EDT Consult Plastic Surgery - [facility] [address] [place] [address] Trinidad Christine, ALIRIO [address] [place], [place] [id number] Health Maintenance Due Date Last Done Comments Pneumococcal Vaccine: 50+ Years (1 of 2 - PCV) 1976 Zoster Vaccines (1 of 2) 12/16/2007 RSV Immunization Adult Patients (1 - Risk 60-74 years 1-dose series) 2017 Breast Cancer Screening 10/20/2020 10/20/2018 Hepatitis C Screening 06/02/2022 Medicare Annual Wellness Visit 06/02/2022 Osteoporosis Screening (Bone Density Screening) 06/02/2022 Social Influencers of Health Screening 06/02/2022 Falls Risk Assessment 2022 Hypertension/CHF/CAD Annual BMP Blood Test 07/20/2023 07/20/2022, 02/19/2021, 08/20/2019, Additional history exists Depression Screening 07/22/2023 07/22/2022 COVID-19 Vaccine ( season) 2024 Influenza Vaccine (Season Ended) 2025 04/09/2023, 04/13/2022, 04/10/2016, Additional history exists Cholesterol Screening (Lipid Panel) 07/20/2027 07/20/2022, 08/20/2019, 10/28/2018 Colorectal Cancer Screening: Colonoscopy 09/25/2030 09/25/2020 DTaP,Tdap,and Td Vaccines (3 - Td or Tdap) 01/03/2031 01/03/2021, 10/13/2018 HIB Vaccines Aged Out No longer eligi ble based on patient's age to complete this topic HPV Vaccines Aged Out No longer eligi ble based on patient's age to complete this topic Hepatitis A Vaccines Aged Out No long er eligible based on patient's age to complete this topic Hepatitis B Vaccines Aged Out No long er eligible based on patient's age to complete this topic IPV Vaccines Aged Out No longer eligi ble based on patient's age to complete this topic MMR Vaccines Aged Out No longer eligi ble based on patient's age to complete this topic Meningococcal ACWY Vaccine Aged Out N o longer eligible based on patient's age to complete this topic Meningococcal B Vaccine Aged Out No l onger eligible based on patient's age to complete this topic RSV Immunization Patients Under 20 months Aged Out No longer eligible based on patient's age to complete this topic Varicella Vaccines Aged Out No longer eligible based on patient's age to complete this topic Procedures Procedure Name Priority Date/Time Associated Diagnosis Comments DEPRESSION SCREENING Routine 07/22/2022 ANNUAL BMP BLOOD TEST Routine 07/20/2022 LIPID PANEL Routine 07/20/2022 COLONOSCOPY Routine 09/25/2020 MAMMOGRAM SCREENING DIGITAL WITH CAD - BILATERAL Routine 10/20/2018 12:30 PM EDT from Last 3 Months or Most Recently Relevant to Health Maintenance Results * Depression Screening (07/22/2022) Pathologist [facility] Depression Screening Abstracted us Historical Provider HEALTH MAINTENANCE Final Result * Annual BMP Blood Test (07/20/2022) Pathologist [facility] Annual BMP Blood Test Abstracted us Historical Provider HEALTH MAINTENANCE Final Result * (ABNORMAL) Lipid panel (07/20/2022) Pathologist [facility] LDL/HDL Ratio 5.7(A) <=5 Triglycerides 481(A) <=150 mg/dL Cholesterol 294(A) <=200 mg/dL HDL 52 >=50 mg/dL Blood Venous blood specimen / Unknown Historical Provider LAB BLOOD ORDERABLES Maria D l Result * Colonoscopy (09/25/2020) Colonoscopy No Interpertation , Abstracted Anatomical Region Laterality Modality Other Historical Provider HEALTH MAINTENANCE Final Result * MAMMOGRAM SCREENING DIGITAL WITH CAD - BILATERAL (10/20/2018 12:30 PM EDT) Anatomical Region Laterality Modality Mammography 10/14/2018 11:1 5 AM EDT Narrative 10/20/2018 12:30 PM EDT Ordering Provider: JOE TILLMAN PT.: ?Justine Ramos DR.: ?Joe Tillman EXAM DATE: ?10/14/2018 PROCEDURES: ??Screening Mammography - Digital With Cad - bilateral HISTORY: Patient is 62 years old and is seen for screening. The patient has a history of right biopsy in 2008 - benign. ??The patient has no personal history of breast or ovarian cancer. The patient has no family history of breast cancer. FILMS COMPARED: The present examination has been compared to prior imaging studies dated 10/13/2017, 03/26/2017 and 02/01/2016. MAMMOGRAM FINDINGS: There are scattered fibroglandular densities. (ACR BIRADS density Category b) * There is a biopsy clip seen in the right breast. No suspicious masses, calcifications or other abnormalities are seen in either breast. TECHNIQUE: Computer-aided detection was utilized by the radiologist in the interpretation of this examination. 2D digital mammographic images were obtained using standard projections. IMPRESSION: Biopsy clip in the right breast is benign. Routine follow-up mammogram in 1 year is recommended. The patient will receive a lay summary of the results of this breast imaging exam. Lay summaries for mammography examinations will also identify the patients personal breast tissue composition as required by state law. BIRADS Category 2: Benign Electronically Signed by: Torres Araujo DATE/TIME GENERATED: 10/21/2018 / 16:01:39 Thank you for referring your patient to us, Torres Araujo MD [id number] (Electronically Signed - 10/20/2018 12:30) Copy: ANDRY ??[facility] [address] [address] PATIENT , ?? Procedure Note Historical, Radiology Results, MD - 07/04/2022 Ordering Provider: JOE TILLMAN PT.: Justine Ramos DR.: Joe Tillman EXAM DATE: 10/14/2018 PROCEDURES: Screening Mammography - Digital With Cad - bilateral HISTORY: Patient is 62 years old and is seen for screening. The patient has a history of right biopsy in 2008 - benign. The patienthas no personal history of breast or ovarian cancer. The patient has no family history of breast cancer. FILMS COMPARED: The present examination has been compared to prior imaging studies dated10/13/2017, 03/26/2017 and 02/01/2016. MAMMOGRAM FINDINGS: There are scattered fibroglandular densities. (ACR BIRADS density Categoryb) * There is a biopsy clip seen in the right breast. No suspicious masses, calcifications or other abnormalities are seen ineither breast. TECHNIQUE: Computer-aided detection was utilized by the radiologist in theinterpretation of this examination. 2D digital mammographic images were obtained using standard projections. IMPRESSION: Biopsy clip in the right breast is benign. Routine follow-up mammogram in 1 year is recommended. The patient will receive a lay summary of the results of this breastimaging exam. Lay summaries for mammography examinations will also identify the patientspersonal breast tissue composition as required by state law. BIRADS Category 2: Benign Electronically Signed by: Torres Araujo DATE/TIME GENERATED: 10/21/2018 / 16:01:39 Thank you for referring your patient to us, Torres Araujo MD [id number] (Electronically Signed - 10/20/2018 12:30) Copy: ANDRY KISER MD [facility] [address] [place] [phone] PATIENT , us Radiology Results Historical IMNader BI PROCEDURE S Final Result from Last 3 Months or Most Recently Relevant to Health Maintenance Insurance MEDICARE Care Teams Pickling Machine Operator Relationship Specialty Start Date End Date Andry Kiser MD [address] [place] [address] [address] [place] [address] PCP - General Family Medicine 10/08/16
--- OUTSIDE RECORDS SUMMARY | 2024-10-04 19:36 | XMS_ITS | Encounter Summary ---
Author Organization [facility] Address [address] [place] [address] Care Team Providers Care Continuous Yarn Dyeing Machine Operator Name Role Phone Sly Avery DO Primary Care Provider + [phone] Carlie Tillman MD Unavailable [phone] Emery Guerrero MD Unavailable [phone] Encounter Details Date Type Department Care Team (Late Contact Info) Description 12/29/2023 Scanned Document [facility] Department Of [place] Boat [place] [address] [place] [phone] Carlie Tillman MD [address] [place] [address] Social History Tobacco Use Types Packs/Day Years Used Date Smoking Tobacco: Never Smokeless Tobacco: Never Alcohol Use Standard Drinks/Week Comments Not Currently [...] Encounters Date Type Department Care Team (Late Contact Info) Description 10/05/2024 3:00 PM EDT Consult [facility] [place] [address] [phone] Emery Guerrero MD [address] [address] 11/08/2024 11:30 AM EDT Office Visit [facility] Department of Pulmonology [place] [address] [facility] [address] [place] [phone] Janessa Gonzalez, ADVERTISING SPECIALIST [address] [place] [address] 12/03/2024 1:00 PM EDT Consult [facility] Department of Endocrinology [place] [address] [place] [address] [address] [place] [address] Shazia Rasheed MD [address] [place], [place] [phone] documented as of this encounter Visit Diagnoses Not on filedocumented in this encounter Care Teams Continuous Yarn Dyeing Machine Operator Relationship Specialty Start Date End Date Sly Avery DO PCP - General Internal Medicine 10/12/17 Carlie Tillman MD [address] [facility] [address] [place] [address] Obstetrics and Gynecology 09/02/22 Emery Guerrero MD [address] [place] [address] Primary Senior Security Engineer Cardiovascular Disease 08/10/24 documented as of this encounter
--- OUTSIDE RECORDS SUMMARY | 2024-10-04 19:36 | XMS_ITS | Encounter Summary ---
Author Organization [facility] Address [address] [place] [address] Care Team Providers Care Canine Enforcement Officer Name Role Phone Sly Avery DO Primary Care Provider + [phone] Andry Kiser MD Primary Care Provider [phone] Sly Avery DO Primary Care Provider + [phone] Carlie Tillman MD Unavailable [phone] Emery Guerrero MD Unavailable [phone] Encounter Details Date Type Department Care Team (Late st Contact Info) Description 04/18/2016 Prep for Surgery [facility] O[facility] IP [address] [place] [address] Carlie Tillman MD [address] [place] [address] Social History Tobacco Use Types Packs/Day Years Used Date Smoking Tobacco: Never Alcohol Use Standard Drinks/Week Comments Yes 2 (1 standard drink = 0.6 oz pur e alcohol) Sex and Gender Information Value Date Recorded Sex Assigned at Female 07/09/2024 8:46 AM EST Gender Identity Female 07/09/2024 8:46 AM EST Sexual Orientation Heterosexual (straight) 07/09 8:46 AM EST documented as of this encounter H&P Notes * Carlie Tillman MD - 04/18/2016 11:20 AM EDT BALLOON ARTIST History & Physical Admit Date: No admission date for patient encounter. Patient's Primary Care Physician: Sly Avery Assessment & Plan Assessment 60 yo c/o LLQ pain and found to have endometrial polyps on u/s. No VB, but patient desires removal. Understands these are not the cause for the pain and will need further workup with PCP for LLQpain Plan Admit for hysteroscopy D+C, polypectomy Subjective Chief Complaint Patient complains of: LLQ pain History of Present Illness Endometrial polyps incidental finding on pelvic u/s done for LLQ pain Review of Systems Review of Systems Objective Active Problems: * No active hospital problems. * Past History OB History No data available Past Medical History Diagnosis Date ??? Anxiety ??? Depression ??? Panic attack as reaction to stress ??? Sleep apnea CPAP ??? Hypertension ??? Hypercholesterolemia ??? Pain left side stomach ??? Disease of thyroid gland hypothyroid ??? TIA (transient ischemic attack) x3 // brain aneurysm Past Surgical History Procedure Laterality Date ??? Breast surgery Right mass- benign ??? Tubal ligation No family history on file. History Substance Use Topics ??? Smoking status: Never Smoker ??? Smokeless tobacco: Not on file ??? Alcohol Use: 1.2 oz/week 0 Standard drinks or equivalent, 2 Glasses of wine per week Route Relief Driver History LMP Postmenopausal Age at Menarche Age at First Age at Menopause Route Relief Driver History Comments Sexual Activity Not Asked; No partner data on record Contraception No contraception data on record Route Relief Driver Medical History Route Relief Driver Surgical History BALLOON ARTIST History Menopause: postmenopausal Allergies Allergies Allergen Reactions ??? Sulfa Antibiotics Rash/Dermatitis Current Medications (Not in a hospital admission) Physical Exam No data found. No intake or output data in the 24 hours ending 04/18/16 1120 Physical Exam Vaginal Bleeding:No Relevant data reviewed office u/s revealed a natural sonohyst and 2 small polyps in cavity Notable labs are: n/a Imaging Studies office u/s reveals endometrial polyps, anteverted [id number] uterus, normal ovaries Sign: Carlie Tillman MD 04/18/2016 11:20 AM documented in this encounter Plan of Treatment Upcoming Encounters Date Type Department Care Team (Late st Contact Info) Description 10/05/2024 3:00 PM EDT Consult [facility] Heart & Vascular [place] [address] [place] [phone] Emery Guerrero MD 7 [facility] [address] [place] [address] 11/08/2024 11:30 AM EDT Office Visit [facility] Department of Pulmonology [place] 12[address] [facility] [address] [place] [phone] Janessa Gonzalez, PAINTING WORKER [address] [place] [address] 12/03/2024 1:00 PM EDT Consult [facility] Department of Endocrinology [place] 1260 [facility] [address] [place] [phone] Shazia Rasheed MD [address] [place] [address] documented as of this encounter Visit Diagnoses Not on filedocumented in this encounter Care Teams Canine Enforcement Officer Relationship Specialty Start Date End Date Sly Avery DO PCP - General Internal Medicine 01/05/16 10/31/16 Andry Kiser MD PCP - General Internal Medicine 11/01/16 10/11/17 Sly Avery DO PCP - General Internal Medicine 10/12/17 Carlie Tillman MD 1210 [facility] [address] [place] [address] Obstetrics and Gynecology 09/02/22 Emery Guerrero MD [address] [place] [address] Primary Lacquer Coater Cardiovascular Disease 08/10/24 documented as of this encounter
--- OUTSIDE RECORDS SUMMARY | 2024-10-04 19:36 | XMS_ITS | Continuity of Care Document ---
Author Organization [facility] Address [address] [address] Phone Care Team Providers Care Bias Cutting Machine Operator Vertical Name Role Phone Herber Garcia MD Unavailable Unavailable Procedures Procedure Date 2 D Echo With Colorflow Advance Directives Directive Yes / No Effective Date File Name No Information Encounters Encounter Description Practice Location Reason(s) For Visit Diagnoses Date Provider Providers Copied on Encounter [facility], [address] [place] [address], [id number], [place] tel:[phone] [facility] No Information Jose Craven. [address] [facility] [address], [place], [id number] , [place]. tel:[phone] Family History Family Member Type Diagnosis Age At Onset No Information Payers Payer name Insurance type Covered constitution party ID Authoriza tion(s) VIJAY GRAYSON [id number] Social History Type Description Quantity Date Captured Comments Sex Female Smoking Status No Information Chief Complaint And Reason For Visit No Information Reason For Referral Reason For Referral No Information History Of Present Illness Encounter Date Complaint History Of Prese nt Illness No Information Functional Status Date Functional Assessmen t No Information Instructions Date Instruction Additional Infor mation No Information Assessments Type Assessment Date No Information Patient Care Teams Name Effective Dates (start - stop) Status Members No Information
--- OUTSIDE RECORDS SUMMARY | 2024-10-04 19:36 | XMS_ITS | Encounter Summary ---
Author Organization Formerly [facility] Address [address] [place] [address] Care Team Providers Care Car Wash Supervisor Name Role Phone Sly Avery DO Primary Care Provider + [phone] Carlie Tillman MD Unavailable [phone] Emery Guerrero MD Unavailable [phone] Encounter Details Date Type Department Care Team (Late Contact Info) Description 12/19/2023 Scanned Document [facility] Department Of Pre K Lead Teacher [place] [address] [place] [phone] Carlie Tillman MD [address] [place] [address] Social History Tobacco Use Types Packs/Day Years [...] Info) Description 10/05/2024 3:00 PM EDT Consult [facility] [place] [address] [phone] Emery Guerrero MD [address] [place] [address] 11/08/2024 11:30 AM EDT Office Visit [facility] Department of Pulmonology [place] [address] [facility] [address] [place] [phone] Janessa Gonzlaez APRN [address] [place] [address] 12/03/2024 1:00 PM EDT Consult [facility] Department of Endocrinology [place] [address] [facility] [address] [place] [address] Shazia Rasheed MD [address] [place] [address] documented as of this encounter Visit Diagnoses Not on filedocumented in this encounter Care Teams Car Wash Supervisor Relationship Specialty Start Date End Date Sly Avery DO PCP - General Internal Medicine 10/12/17 Carlie Tillman MD [address] [facility] [address] [place] [address] Obstetrics and Gynecology 09/02/22 Emery Guerrero MD [address] [place] [address] Primary Front End Wheel Loader Operator Cardiovascular Disease 08/10/24 documented as of this encounter
--- OUTSIDE RECORDS SUMMARY | 2024-10-04 19:36 | XMS_ITS | Clinical Summary ---
Author Organization [employer] Address [address] [place] [address] [address] [place] [address] Care Team Providers Care [employer] Media Specialist Name Role Phone Unavailable Primary Care Provider Unavailabl e Allergies No known active allergies Social History Tobacco Use Types Packs/Day Years Used Date Smoking Tobacco: Never Assessed Comments Unknown Sex and Gender Information Value Date Recorded Sex Assigned at Female 03/24/2023 10:51 AM EDT Legal Sex Female 10:44 AM EDT Gender Identity Female 03/24/2023 10:51 AM EDT Sexual Orientation Choose not to disclose 2022 10:51 AM EDT Plan of Treatment Health Maintenance Due Date Last Done Comments CT Colonography 1957 Colonoscopy 1957 Colorectal Cancer Screening 1957 Dental Oral Exam 1957 Dental Prophylaxis 1957 Dental X-Ray: Bitewings 1957 Dental X-Ray: Full Mouth 1957 Depression Screening 1957 FIT DNA/Cologuard 1957 FIT 1957 FOBT 1957 Lipid Panel 1957 SDOH Screening 1957 Sigmoidoscopy 1957 Alcohol/Substance Use Screening 1969 Tobacco Screening 1969 Hepatitis C Screening 12/16/1975 Pneumococcal Vaccine: 50+ Years (1 of 2 - PCV) 1976 Zoster Vaccines (1 of 2) 12/16/2007 RSV Patients and Patients Aged 60 years or older (1 - Risk 60-74 years 1-dose series) 2017 Mammogram 08/08/2023 08/08/2021, 10/14/2018 COVID-19 Vaccine ( - 2023-2 5 season) 2024 Influenza Vaccine (#1) 2024 2, 04/10/2016 DTaP/Tdap/Td Vaccines (3 - T d or Tdap) 01/03/2031 01/03/2021, 10/13/2018 HIB Vaccines [...] patient's age to complete this topic Meningococcal Vaccine Aged Out No palma min eligible based on patient's age to complete this topic RSV under 20 months Aged Out No longe r eligible based on patient's age to complete this topic Rotavirus Vaccines Aged Out No longer eligible based on patient's age to complete this topic Insurance D[facility] - [facility]
--- OUTSIDE RECORDS SUMMARY | 2024-10-04 19:36 | XMS_ITS | Clinical Summary ---
Author Organization [facility] [facility] Address [address] [place] [address] Care Team Providers Care Data Virtualization Consultant Name Role Phone Andry Kiser MD Primary Care Provider [phone] Allergies Active Allergy Reactions Criticality Noted Date Comments Sulfa Antibiotics Rash Low 05/03/2014 Medications Medication Sig Dispensed Refills Start Date End Date Status QUEtiapine (SEROQUEL) 12.5 MG split tablet Take 2 split tablet (25 mg total) by mouth every night at bedtime. 0 Active clonazePAM (KlonoPIN) 2 MG tablet Take 1 tablet (2 mg total) by mouth 3 (three) times a day as needed. 0 09/25/2019 Active ARIPiprazole (ABILIFY) 2 MG tablet Take 1 tablet (2 mg total) by mouth every night at bedtime. 0 01/11/2020 Active temazepam (RESTORIL) 30 MG capsule Take 1 capsule (30 mg total) by mouth every night at bedtime as needed. 0 12/20/2019 Active omega-3 acid ethyl esters (LOVAZA) capsule 1 g Take 2 capsules (2 g total) by mouth 2 (two) times a day. 380 capsule 3 03/20/2022 Active Estring 2 MG vaginal ring INSERT 1 RING EVERY THREE MONTHS 0 06/19/2022 Active cyclobenzaprine (FLEXERIL) 10 MG tablet TAKE 1 TABLET THREE TIMES A DAY NEEDED FOR MUSCLE SPASMS 90 tablet 11 12/11/2022 Active fluticasone (FLONASE) 50 MCG/ACT nasal spray 2 sprays each nostril daily. 16 g 5 09/25/2023 Active atorvastatin (LIPITOR) tablet 80 mgIndications:Mixed hyperlipidemia Take 1 tablet (80 mg total) by mouth daily. 90 tablet 3 11/12/2023 Active buPROPion (WELLBUTRIN XL) 300 MG 24 hr tablet TAKE 1 TABLET BY MOUTH ONCE DAILY IN THE MORNING 90 tablet 1 11/12/2023 Active meclizine (ANTIVERT) 25 MG tabletIndications:Ve rtigo Take 1 tablet (25 mg total) by mouth daily. 90 tablet 0 11/12/2023 Active sertraline (ZOLOFT) 100 MG tablet Take 1 tablet (100 mg total) by mouth daily. 90 tablet 1 11/12/2023 Active clotrimazole-betamet hasone (Lotrisone) cream Apply to affected (feet) area 2 times daily 45 g 4 11/12/2023 11/11/2024 Active ketoconazole (NIZORAL) 2 % shampoo Apply topically 2 (two) times a week. Apply to damp skin, lather, leave on 5 minutes, and rinse 120 mL 6 11/13/2023 Active dicyclomine (BENTYL) 20 MG tabletIndications:LL Q abdominal pain Take 1 tablet (20 mg total) by mouth 3 (three) times a day as needed. 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 30 tablet 3 01/15/2024 Active gabapentin (Neurontin) 100 MG capsule 1 tab at bedtime. 90 capsule 1 01/15/2024 Active ergocalciferol (VITAMIN D2) capsule 15590 units Take 1 capsule (50,000 Units total) by mouth once a week. 12 capsule 0 02/17/2024 Active mometasone (ELOCON) 0.1 % lotion Apply topically daily. 60 mL 2 05/04/2024 Active famotidine (PEPCID) 20 MG tablet Take 1 tablet (20 mg total) by mouth 2 (two) times a day. 180 tablet 1 05/14/2024 Active Levothyroxine Sodium 125 MCG CAPSIndications:Adul t hypothyroidism Take 125 mcg by mouth daily. 90 capsule 3 05/26/2024 Active amLODIPine (NORVASC) tablet 5 mgIndications:Essent ial hypertension Take 1 tablet (5 mg total) by mouth daily. 90 tablet 3 05/26/2024 Active losartan-hydrochloro thiazide (HYZAAR) 100-12.5 MG per tablet Take 1 tablet by mouth daily. 90 tablet 3 05/26/2024 Active cetirizine (ZyrTEC ALLERGY) 10 MG tablet Take 1 tablet (10 mg total) by mouth daily. 90 tablet 0 05/26/2024 Active Active Problems Problem Noted Date Diagnosed Date Dysphagia, unspecified 07/24/2023 Asthma 01/08/2023 04/09/2023 Asthma, mild intermittent 01/08/20232022 BMI 33.0-33.9,adult 01/08/2023 04/09/2023 Breast lump 01/08/2023 04/09/2023 Breast pain, right 01/08/2023 04/09/2023 Fibromyalgia 01/08/2023 04/09/2023 Obstructive sleep apnea syndrome 01/08/2023 04/09/2023 Poor compliance with CPAP treatment 01/08/2023 04/09/2023 Post-nasal drip 01/08/2023 04/09/2023 Snoring 01/08/2023 04/09/2023 Unsatisfactory cervical Papanicolaou smear 01/0804/09/2023 Atrophic vaginitis 09/02/2022 04/09/2023 Chronic pain of left knee 08/04/2018 Somnolence 08/03/2018 Acute cystitis without hematuria 02/16/2018 Hypothyroidism 10/19/2017 Acquired hypothyroidism 09/15/2017 Eustachian tube dysfunction, right 09/15/2017 Mixed hyperlipidemia 09/15/2017 Weight gain 09/11/2017 Pre-op exam 07/17/2016 Fatigue 07/17/2016 Low vitamin D level 07/17/2016 Vertigo 07/17/2016 History of TIAs 07/17/2016 Affective bipolar disorder 07/05/2016 Preop examination 04/10/2016 Flu vaccine need 04/10/2016 Right carpal tunnel syndrome 04/10/2016 CN (constipation) 03/06/2016 Anxiety and depression 03/06/2016 Hypercholesteremia 03/06/2016 Essential hypertension 03/06/2016 Adult hypothyroidism 03/06/2016 Abdominal pain, left lower quadrant 03/06/2016 Calculus of kidney and ureter 01/11/2016 Midline low back pain without sciatica 6 Aneurysm, cerebral 12/22/2014 Resolved Problems Problem Noted Date Diagnosed Date Resolved Date Dysuria 02/16/2018 08/19/2019 Benign paroxysmal positional vertigo 09/11/2017 08/19/2019 Cellulitis of left lower extremity 11/06/2016 08/19/2019 Left sided chest pain 07/17/20162019 Left arm numbness 07/17/2016 08/19/2019 Lower abdominal pain 04/10/2016 020 Pelvic pain in female 04/10/20162019 Routine history and physical examination of adult 03/06/2016 08/19/2019 Immunizations Name Administration Dates Next Due Adacel (Tdap) 10/13/2018 Influenza Quad (Afluria) 0.25mL 6-35mon (SD-IIV4 ) 04/10/2016 Influenza Quad (Afluria/Fluz one) 0.5mL >=6mon Vial (SD-IIV4) 04/10/2016 Influenza Quad (Fluad) 0.5 mL >65Yrs (AIIV4) 04/2023 Influenza Quad (Fluarix/Fluz one/FluLaval) 0.5mL (SD-IIV4) 04/13/2022 Influenza Quad (Flumist) 0.2mL 2-49 Yrs (LAIV4) 04/10/2016 Influenza Vaccine, Unspecified formulation 04/13 Tdap 01/03/2021,10/13/2018 Family History Medical History Relation Name Comments Hypertension Brother GABINO Fibromyalgia Daughter 1 DOLMARIE Diabetes Daughter 2 VELISSE Cancer Maternal Grandfather Heart attack Maternal Grandmother Anxiety disorder Mother Arthritis Mother Depression Mother Diabetes Mother Hyperlipidemia Mother Hypertension Mother Diabetes Sister 1 NICKO Heart disease Sister 1 NICKO COPD Sister 2 IRIS stomach Aneurysm Son HEAD Migraines Son Relation Name Status Comments Brother GABINO Alive Daughter 1 DOLMARIE Alive Daughter 2 VELISSE Alive Father Maternal Grandfather Maternal Grandmother Mother Alive Paternal Grandfather SUICIDE Paternal Grandmother Sister 1 NICKO Alive Sister 2 IRIS Alive Son Social History Tobacco Use Types Packs/Day Years Used Date Smoking Tobacco: Never Smokeless Tobacco: Never Tobacco Cessation:Counseling Given: Not Answered Alcohol Use Standard Drinks/Week Comments Not Currently 0 (1 standard drink = 0.6 oz pur e alcohol) 4 drink/month Sex and Gender Information Value Date Recorded Sex Assigned at Female 09/08/2018 10:58 AM EDT Gender Identity Female 02/21/2021 4:33 PM EDT Sexual Orientation Not on file Job Start Date Occupation Industry Not on file Not on file Not on file Last Filed Vital Signs Vital Sign Reading Time Taken Comments Blood Pressure 129/76 02/02/2024 2:18 PM EDT Pulse 69 02/02/2024 2:18 PM EDT Temperature 37.1 ??C (98.7 ??F) 02/02/2024 2:18 PM ED T Respiratory Rate 16 09/10/2023 2:35 PM EDT Oxygen Saturation 97% 02/02/2024 2:18 PM EDT Inhaled Oxygen Concentration - - Weight 86.7 kg (191 lb 3.2 oz) 02/02/2024 2:18 P M EDT Height 162.6 cm (5' 4 ) 02/02/2024 2:18 PM EDT Body Mass Index 32.82 02/02/2024 2:18 PM EDT Plan of Treatment Health Maintenance Due Date Last Done Comments Hepatitis C Screening 1955 COVID-19 Vaccine (#1) 06/16/1956 Breast Cancer Screening (Mammogram) 10/14/2020 10/14/2018, 03/26/2017 Osteoporosis Screening (DEXA Scan) 2022 Pneumococcal Vaccine (1 of 1 - PCV) 2022 BMI Counseling 07/22/2023 07/22/2022, 07/01, 09/11/2021, Additional history exists Depression Screening 07/22/2023 07/22/2022, 07/22/2022, 07/22/2022, Additional history exists Fall Risk Assessment 07/22/2023 07/22/2022, 07/22/19 Preventative Health Evaluation 07/22/2023 07/22/2022, 07/22/2022 Influenza Vaccine (#1) 2024 , 04/13/2022, 04/10/2016, Additional history exists Colon Cancer Screening (Colonoscopy) 09/25/2030 09/25/2020, 05/04/2014 DTap / Tdap / Td (4 - Td or Tdap) 01/03/2031 01/03/2021, 10/13/2018, 10/13/2018 RSV Adult > 60+ Yrs or (1 - 1-dose 75+ series) 2032 Shingrix-Zoster Vaccine Addressed 03/14/20 21 (Not eligible (specify reason in comment)), 10/13/2018 (Out of stock-imm not given) Overridden with the intention of not completing the topic Hepatitis B Vaccines Aged Out No long er eligible based on patient's age to complete this topic RSV Ped < 20 months Aged Out No longe r eligible based on patient's age to complete this topic Advance Directives For more information, please contact: [phone] Latest Code Status on File Code Status Date Activated Date Inactivated Comments Full Code 09/07/2023 1:26 PM 09/10/2023 9:39 PM This code status was ascertained in the following way: discussion with patient . Code Status History Code Status Date Activated Date Inactivated Comments Full Code 05/04/2014 11:55 AM 05/04/2014 7:15 PM This code status was ascertained in the following way: discussion with patient. Care Teams Data Virtualization Consultant Relationship Specialty Start Date End Date Andry Kiser MD PCP - General Family Medicine 10/08/16
[2024-10-04 19:40] LABS: MANUAL DIFF FLAG NO
[2024-10-04 20:00] LABS: Basophils Percent Auto 0.9 % (0-2); Eosinophils Absolute Auto 0.1 X10*3/uL (0.0-0.4); Eosinophils Percent Auto 2.9 % (0-4); Hematocrit 32.8 % (37.0-47.0); Hemoglobin 11.7 g/dl (12.0-16.0); Imm Gran Abs Auto 0.02 X10*3/uL (0.00-0.03); Imm Gran Pct Auto 0.5 % (0.0-0.4); Lymphocytes Absolute Auto 1.3 X10*3/uL (1.2-4.9); Lymphocytes Percent Auto 28.4 % (20-40); Mean Corpuscular HGB Conc 35.7 g/dl (31.0-35.0); Mean Corpuscular Hemoglobin 31.1 pg (27.0-33.0); Mean Corpuscular Volume 87.2 fL (80.0-98.0); Mean Platelet Volume 9.7 fL (9.4-12.3); Monocytes Absolute Auto 0.4 X10*3/uL (0.1-1.2); Monocytes Percent Auto 9.7 % (2-11); Neutrophils Absolute Auto 2.6 x10*3/uL (2.0-8.3); Neutrophils Percent Auto 57.6 % (45-73); Platelet Count 241 X10*3/uL (160-400); Red Blood Count 3.76 X10*6/uL (4.20-5.50); White Blood Count 4.4 X10*3/uL (4.8-10.8)
[2024-10-04 20:05] LABS: Alanine Aminotransferase 40 U/L (0-31); Albumin Level 4.2 g/dL (3.5-5.0); Alkaline Phosphatase 76 U/L (39-117); Anion Gap 13 (12-20); Aspartate Amino Transferase 47 U/L (5-31); Bilirubin Total 0.4 mg/dL (0.0-1.0); Blood Urea Nitrogen 18 mg/dL (9-16); Calcium 9.7 mg/dL (8.4-10.2); Carbon Dioxide 25 mmol/L (22-29); Chloride 105 mmol/L (96-108); Creatinine Clr Calc Pharmacy 51.9; Estimated Glomerular Filt Rate 47; Glucose Random 100 mg/dL (60-115); Lipase 19 U/L (8-78); Potassium 3.3 mmol/L (3.3-5.1); Sodium 140 mmol/L (135-145); Total Protein 7.7 g/dL (6.5-8.0)
[2024-10-04 20:21] LABS: Influenza A PCR NEGATIVE (Negative); Influenza B PCR NEGATIVE (Negative); Resp Syncy Virus RNA Qual PCR NEGATIVE (Negative); SARS COV2 PCR INHOUSE POSITIVE (Negative)
[2024-10-04] MEDS: Acetaminophen 325 MG TABLET 650 MG PO (21:42)
--- NOTE | 2024-10-04 22:24 | PC.NURSE ---
Pt seen by staff walking out of department w/ steady gait, informed staff she was not going to stay, left w/o completing treatment.
== END 2024-10-04 22:26 | disposition left against medical advice (07) ==
PROVIDERS: Physician Assistant; Emergency Provider Emergency Medicine
DX: R10.32 Left lower quadrant pain (principal); R11.2 Nausea with vomiting, unspecified; Z03.818 Encounter for observation for suspected exposure to other biological agents ruled out; Z79.899 Other long term (current) drug therapy
CPT/HCPCS: 0241U; 36415; 74018; 80053; 83690; 85025; 99282; 99283

== ENCOUNTER → 2024-10-04 19:19 | Outpatient (BNV) | payer OTHER, SELFPAY | PROVIDERS: Visit Provider Student in an Organized Health Care Education/Training Program | DX: K59.00 Constipation, unspecified (principal) | CPT/HCPCS: 74018 ==

== ENCOUNTER 2024-10-05 12:15 | Emergency (ER) | payer OTHER, MEDICARE, SELFPAY ==
[2024-10-05] VITALS (7 sets, daily range): BP systolic 160–174; BP diastolic 76–85; PULSE 71–95; RESP 18–20; TEMP 36.9–37; O2SAT 95–98; BMI 35.1
--- NOTE | ~2024-10-05 | CT_ITS ---
EXAMINATION: CT ABDOMEN AND PELVIS WITH CONTRAST CLINICAL INFORMATION: Left lower quadrant abdominal pain. COMPARISON: 07/16/2022. TECHNIQUE: Multidetector volumetric images were obtained from the superior aspect of the liver through the pubic symphysis following administration 85 mL of Omnipaque 350 intravenous contrast. Sagittal and coronal reformatted images were obtained on the technologist's workstation. Oral contrast: No This CT examination was performed using dose optimization techniques as appropriate, variously including the following: *Automated exposure control *Adjustment of mA and/or kV according to patient size (this includes techniques or standardized protocols for targeted exams where dose is matched to indication/reason for exam; i.e. extremities or head) *Use of iterative reconstruction technique FINDINGS: LUNG BASES: Lung bases demonstrate gravity dependent changes, a few scattered calcified granulomata. No effusion. The heart size is normal. GE junction is normal. LIVER, GALLBLADDER, AND BILIARY TREE: The liver is normal in size, shape, and attenuation. No focal hepatic lesion or biliary ductal dilatation is present. The gallbladder is unremarkable with no evidence of radiopaque gallstones, gallbladder wall thickening, or obvious pericholecystic inflammatory changes. PANCREAS: Unremarkable. SPLEEN: Unremarkable. ADRENAL GLANDS: Unremarkable. KIDNEYS AND URETERS: The kidneys are normal in size, shape, and attenuation. No hydronephrosis or hydroureter. 6 mm nonobstructing calculus right kidney midpole. No perinephric stranding. BLADDER: Normal. GASTROINTESTINAL TRACT: The stomach is distended with a recent meal. The duodenum is normal. Small bowel is normal in caliber and course. There is no focal colonic abnormality. No CT features of appendicitis. ABDOMINAL WALL: No significant hernia is appreciated. LYMPH NODES: Normal. VASCULAR: Mild atheromatous calcification. No aneurysm. PELVIC VISCERA: The uterus and adnexa are unremarkable. There is a pessary in the vagina. OSSEOUS STRUCTURES: There is no suspicious or blastic bone lesion. There are degenerative changes throughout the spine. CT/CT abdomen pelvis w IV con IMPRESSION: 1. No acute findings in the abdomen or pelvis. 2. Nonobstructing 6 mm calculus right kidney. Electronically signed by: Drew Gimenez MD 10/05/2024 02:46 PM EDT
--- NOTE | 2024-10-05 13:10 | ED_ITS ---
HPI - General Adult General Chief complaint: Abdominal Pain Stated complaint: sick , N/V, dizziness, abd pain, weakness Time Seen by Provider: 10/05/24 12:53 Source: patient, EMS, RN notes reviewed and old records reviewed Mode of arrival: EMS Limitations: no limitations History of Present Illness ED Provider: Ryan HPI narrative: Patient is a 68-year-old female with history of migraines presenting to the emergency department with complaint of left lower abdominal pain. States she had imaging done a few months ago and was told she has a mass in her abdomen, has a follow up appointment with surgery in October. Unable to state where she had this imaging done. Reports that the pain is severe and worse with bowel movements, states she is unable to tolerate this pain. Intermittent nausea and vomiting. She also complains of headaches, states she is out of her sumatriptan. Presented to this emergency department yesterday but left without completing treatment, tested positive for COVID at that time. MD complaint: abdominal pain Onset (ago): month(s) Location: abdomen Radiation: non-radiation Severity: severe Quality: aching Pain Consistency: colicky Related Data Previous Rx's ?Medication ?Instructions ?Recorded cefuroxime axetil 500 mg tablet 500 mg PO BID 7 days #14 tabs 02/12/22 cyclobenzaprine 10 mg tablet 10 mg PO TID PRN pain #14 tabs 07/16/22 ibuprofen 400 mg tablet 400 mg PO Q6H PRN pain #20 tabs 07/16/22 amoxicillin 500 mg tablet 500 mg PO TID 10 days #30 tabs 11/13/22 cyclobenzaprine 10 mg tablet 10 mg PO TID PRN muscle spasm #10 08/06/23 tabs ibuprofen 600 mg tablet 600 mg PO TID PRN pain #20 tabs 08/06/23 cefuroxime axetil 500 mg tablet 500 mg PO BID #14 tabs 08/07/23 cyclobenzaprine 10 mg tablet 10 mg PO TID PRN muscle spasm #15 08/16/23 tabs ibuprofen 600 mg tablet 600 mg PO Q6H PRN pain #30 tabs 08/16/23 lidocaine 5 % topical patch 1 patch topical DAILY #15 ea 08/16/23 (Lidoderm) ketorolac 10 mg tablet 10 mg PO Q8H PRN pain #10 tabs 01/10/24 metoclopramide HCl 5 mg tablet 5 mg PO DAILY PRN nausea and 01/10/24 (Reglan) vomiting #10 tabs hydrocortisone 2 % topical gel 1 appl topical TID #28 grams 01/24/24 dicyclomine 10 mg capsule 10 mg PO TID PRN abdominal pain 10/05/24 #14 caps sumatriptan succinate 25 mg tablet See Rx Instructions PO .COMPLEX #4 10/05/24 tabs Allergies Allergy/AdvReac Type Severity Reaction Status Date / Time No Known Allergies Allergy Verified 10/05/24 12:33 Review of Systems 2 Review of Systems: As per HPI Yes all other systems are reviewed and are negative Constitutional: Constitutional: Reports as per HPI [facility] Social History Social History Advance Directives: No Advance Directives Information Provided: Yes Physical Exam ED Vital Signs: Vital Signs - 24 hr 10/05/24 12:31 10/05/24 12:39 10/05/24 12:40 Temperature 98.5 F Pulse Rate 92 91 91 Respiratory Rate 18 20 Blood Pressure 174/85 H 174/85 H 174/85 H Pulse Oximetry 98 95 Oxygen Delivery Method Room Air Room Air 10/05/24 12:41 10/05/24 13:46 Temperature Pulse Rate 91 Respiratory Rate 20 Blood Pressure 163/82 H Pulse Oximetry Oxygen Delivery Method BMI result Body Mass Index 35.1 Vital signs have been reviewed and appear to be correct. Blood pressure normal. Heart rate normal. Respiratory rate normal. Temperature normal. Oxygen saturation normal. Const General: cooperative, healthy appearing and no acute distress Orientation/consciousness: oriented to person, oriented to place, oriented to time and patient oriented x3 Limitations: no limitations [facility] Head: Yes normocephalic and Yes atraumatic Ears: external ears normal General nose exam: Normal external nose present Face and sinus: Yes face symmetric Mouth: oropharynx normal and moist mucous membranes Throat: Yes uvula midline Eyes Pupils: Equal, round and reactive pupils present Neck Neck: Yes normal visual inspection and Yes supple Resp Effort & Inspection: normal respiratory effort and able to speak in complete sentences Auscultation: clear to auscultation bilaterally Cardio Rate: regular rate Rhythm: regular rhythm Heart sounds: S1 normal heart sound present and S2 normal heart sound present GI Palpation (GI): Soft to palpation, Tenderness to palpation present (GI) in the LLQ, no guarding and No Rebound tenderness present Auscultation: normoactive bowel sounds General: Yes no CVA tenderness Back/Spine/Pelvis Back: no CVA tenderness Skin General skin exam: elasticity normal and turgor normal Neuro General: oriented to person, oriented to place, oriented to time, patient oriented x3, moves all extremities, no focal motor deficits and CN's II-XI intact bilaterally Cranial nerves: Yes Equal, round and reactive pupils present Cognition (Neuro): normal cognition Extrem General: Yes full ROM, Yes no pedal edema and Yes no calf tenderness Psych Mental Status: mental status grossly normal Affect: normal affect Thought process: Normal thought process present Medications Administered Discontinued Medications Generic Name Dose Route Start Last Admin Trade Name Freq PRN Reason Stop Dose Admin Iohexol 100 ml 10/05/24 14:23 10/05/24 14:24 Iohexol 350 Mg/Ml 100 Ml Infus..Btl IV 10/05/24 14:24 85 ml ONCE ONE Administration Morphine Sulfate 4 mg 10/05/24 13:19 10/05/24 13:46 Morphine Sulfate 4 Mg/Ml Cartridge IVPUSH 10/05/24 13:20 4 mg ONCE ONE Administration Protocol Ondansetron HCl 4 mg 10/05/24 13:19 10/05/24 13:46 Ondansetron Hcl 4 Mg/2 Ml Vial IVPUSH 10/05/24 13:20 4 mg ONCE ONE Administration Sumatriptan Succinate 6 mg 10/05/24 13:19 10/05/24 13:47 Sumatriptan Succinate 6 Mg/0.5 Ml Vial SUBCUT 10/05/24 13:20 6 mg ONCE ONE Administration Medical Decision Making Medical Decision Making MDM Narrative: Patient is a 68-year-old female with history of migraines presenting to the emergency department with complaint of left lower abdominal pain. On exam patient is awake, A+Ox3, BP elevated, VS otherwise WNL, afebrile, normal neurological exam without focal deficits, physical exam findings as above. Given reported symptoms and physical exam findings, initial differential includes but is not limited to bowel obstruction, abscess, perforation. Labs notable for no leukocytosis, mild anemia not at transfusion level, no significant electrolyte abnormalities, slightly elevated transaminases with normal T bili. Urinalysis is without evidence of infection. CT A/P notable for no acute abnormalities, no evidence of mass in abdomen, nonobstructing 6 mm calculus right kidney. My interpretation is in agreement with the radiologist's interpretation. Results discussed with patient and all questions answered. Patient now stating that she was told here previously that she had an abdominal mass. Unclear at what point this was discussed with patient as no notable mass on prior imaging. We will refer to GI for further evaluation of abdominal pain. Will send prescription for Bentyl. Patient also requesting prescription for sumatriptan, states she has run out. Will send small amount until she can follow up with PCP. Return precautions discussed. Discussed with patient that COVID symptoms can last 1-2 weeks before improving. Patient verbalized understanding of and agreement with plan. In-person asl interpreter was utilized for all interactions, assessments, and discussions. Differential Diagnosis Differential Diagnoses: The differential diagnosis associated with the presentation includes As per [facility] Admission/Observation Consideration of admission/observation: Escalation of care including admission/observation considered Patient would have been admitted to the hospital had their work up had any findings where hospital admission was appropriate and their clinical presentation warranted hospital admission. Lab Data [facility] Lab Attestation statement: I reviewed the patient's lab results. as per [facility] 10/05/24 13:31 10/05/24 13:31 Labs: Lab Results 10/05/24 10/05/24 Range/Units 13:31 14:47 WBC 4.4 L (4.8-10.8) X10*3/uL RBC 3.84 L (4.20-5.50) X10*6/uL Hgb 11.8 L (12.0-16.0) g/dl Hct 33.8 L (37.0-47.0) % MCV 88.0 (80.0-98.0) fL MCH 30.7 (27.0-33.0) pg MCHC 34.9 (31.0-35.0) g/dl RDW 14.7 (11.0-16.0) % Plt Count 244 (160-400) X10*3/uL MPV 9.7 (9.4-12.3) fL Immature Gran % (Auto) 0.2 (0.0-0.4) % Neut % (Auto) 65.1 (45-73) % Lymph % (Auto) 23.6 (20-40) % Sequoyah % (Auto) 7.6 (2-11) % Eos % (Auto) 2.8 (0-4) % Baso % (Auto) 0.7 (0-2) % Lymph # (Auto) 1.0 L (1.2-4.9) X10*3/uL Sequoyah # (Auto) 0.3 (0.1-1.2) X10*3/uL Eos # (Auto) 0.1 (0.0-0.4) X10*3/uL Baso # (Auto) 0.0 (0.0-0.2) X10*3/uL Abs Immat Gran (auto) 0.01 (0.00-0.03) X10*3/uL Absolute Neuts (auto) 2.8 (2.0-8.3) x10*3/uL Absolute Nucleated RBC 0.000 (0.0-0.012) X10*3/uL Nucleated RBC % (auto) 0.0 (0.0-0.2) /100WBC Sodium 140 (135-145) mmol/L Potassium 3.6 (3.3-5.1) mmol/L Chloride 106 (96-108) mmol/L Carbon Dioxide 27 (22-29) mmol/L Anion Gap 11 L (12-20) BUN 17 H (9-16) mg/dL Creatinine 0.91 (0.5-1.4) mg/dL Estim Creat Clear Calc 67.1 Estimated GFR > 60 Random Glucose 91 (60-115) mg/dL Calcium 9.4 (8.4-10.2) mg/dL Total Bilirubin 0.3 (0.0-1.0) mg/dL AST 40 H (5-31) U/L ALT 37 H (0-31) U/L Alkaline Phosphatase 78 (39-117) U/L Total Protein 7.5 (6.5-8.0) g/dL Albumin 4.0 (3.5-5.0) g/dL Urine Color Yellow Urine Appearance Clear Urine pH 7.0 (5.0-9.0) Ur Specific [place]inn 1.015 (1.005-1.025) Urine Protein Negative (Neg-Trace) mg/dL Urine Glucose (UA) Negative (Negative) mg/dL Urine Ketones Negative (Negative) mg/dL Urine Blood Negative (Negative) Urine Nitrite Negative (Negative) Ur Leukocyte Esterase Negative (Negative) Independent Interpretation I performed an independent interpretation of an: CT Scan Interpretation: No acute abnormalities noted on CT abdomen pelvis. Radiology Impression Discussion of test interpretation with radiology: I have reviewed the radiologist's reading. Radiologist Impression: CT/CT abdomen pelvis w IV con IMPRESSION: 1. No acute findings in the abdomen or pelvis. 2. Nonobstructing 6 mm calculus right kidney. External Record Review External record reviewed: Inpatient record, Office record and Outpatient record Prescription Management I considered prescription management with: Pain Medication Discharge Plan Discharge Clinical Impression: Abdominal pain Patient Disposition: Home, Self-Care Instructions: Abdominal Pain (ED), COVID-19 (Coronavirus Disease 2019) (ED) Additional Instructions: You have been evaluated in the emergency department today for abdominal pain. Your evaluation did not show evidence of medical conditions requiring emergent intervention at this time. We recommend that you follow up with the boiler tenders supervisor for further evaluation and management of your abdominal pain. Please schedule an appointment with your primary care physician as well. Return to the emergency department if you experience worsening or uncontrolled pain, fevers 100.4? F or greater, recurrent vomiting, inability to tolerate food or fluids by mouth, bloody stools or vomit, black or tarry stools, or any other concerning symptoms. Prescriptions: New sumatriptan succinate 25 mg tablet See Rx Instructions .ROUTE .COMPLEX Qty: 4 0RF Rx Instructions: take 1 tab at onset of headache; if no relief may repeat 1 tab after at least 2 hrs; max = 4 tabs/24 hr dicyclomine 10 mg capsule 10 mg PO TID PRN (Reason: abdominal pain) Qty: 14 0RF No Action cefuroxime axetil 500 mg tablet 500 mg PO BID 7 Days Qty: 14 0RF ibuprofen 400 mg tablet 400 mg PO Q6H PRN (Reason: pain) Qty: 20 0RF cyclobenzaprine 10 mg tablet 10 mg PO TID PRN (Reason: pain) Qty: 14 0RF amoxicillin 500 mg tablet 500 mg PO TID 10 Days Qty: 30 0RF cyclobenzaprine 10 mg tablet 10 mg PO TID PRN (Reason: muscle spasm) Qty: 15 0RF lidocaine [Lidoderm] 5 % adhesive patch,medicated 1 patch topical DAILY Qty: 15 0RF Rx Instructions: leave on most painful area for up to 12 hrs ibuprofen 600 mg tablet 600 mg PO Q6H PRN (Reason: pain) Qty: 30 0RF hydrocortisone 2 % gel 1 appl topical TID Qty: 28 0RF ibuprofen 600 mg tablet 600 mg PO TID PRN (Reason: pain) Qty: 20 0RF cyclobenzaprine 10 mg tablet 10 mg PO TID PRN (Reason: muscle spasm) Qty: 10 0RF cefuroxime axetil 500 mg tablet 500 mg PO BID Qty: 14 0RF ketorolac 10 mg tablet 10 mg PO Q8H PRN (Reason: pain) Qty: 10 0RF Rx Instructions: Do not use this medication with NSAIDs, only Tylenol if needed metoclopramide HCl [Reglan] 5 mg tablet 5 mg PO DAILY PRN (Reason: nausea and vomiting) Qty: 10 0RF Referrals: [facility] [place] [place] Gastroenterology Services [Provider Group] - 1 week (Abdominal pain) Print Language: Choose Not To Answer
[2024-10-05 13:35] LABS: MANUAL DIFF FLAG NO
[2024-10-05 13:38] LABS: Basophils Percent Auto 0.7 % (0-2); Eosinophils Absolute Auto 0.1 X10*3/uL (0.0-0.4); Eosinophils Percent Auto 2.8 % (0-4); Hematocrit 33.8 % (37.0-47.0); Hemoglobin 11.8 g/dl (12.0-16.0); Imm Gran Abs Auto 0.01 X10*3/uL (0.00-0.03); Imm Gran Pct Auto 0.2 % (0.0-0.4); Lymphocytes Percent Auto 23.6 % (20-40); Mean Corpuscular HGB Conc 34.9 g/dl (31.0-35.0); Mean Corpuscular Hemoglobin 30.7 pg (27.0-33.0); Mean Platelet Volume 9.7 fL (9.4-12.3); Monocytes Absolute Auto 0.3 X10*3/uL (0.1-1.2); Monocytes Percent Auto 7.6 % (2-11); Neutrophils Absolute Auto 2.8 x10*3/uL (2.0-8.3); Neutrophils Percent Auto 65.1 % (45-73); Platelet Count 244 X10*3/uL (160-400); Red Blood Count 3.84 X10*6/uL (4.20-5.50); Red Cell Distribution Width 14.7 % (11.0-16.0); White Blood Count 4.4 X10*3/uL (4.8-10.8)
[2024-10-05] MEDS: Morphine Sulfate 4 MG/ML CARTRIDGE IVPUSH (13:46)
[2024-10-05] MEDS: ondansetron HCL 4 MG/2 ML VIAL IVPUSH (13:46)
[2024-10-05] MEDS: SUMAtriptan succinate 6 MG/0.5 ML VIAL SUBCUT (13:47)
[2024-10-05 13:56] LABS: Alanine Aminotransferase 37 U/L (0-31); Alkaline Phosphatase 78 U/L (39-117); Anion Gap 11 (12-20); Aspartate Amino Transferase 40 U/L (5-31); Bilirubin Total 0.3 mg/dL (0.0-1.0); Blood Urea Nitrogen 17 mg/dL (9-16); Calcium 9.4 mg/dL (8.4-10.2); Carbon Dioxide 27 mmol/L (22-29); Chloride 106 mmol/L (96-108); Creatinine Clr Calc Pharmacy 67.1; Estimated Glomerular Filt Rate > 60; Glucose Random 91 mg/dL (60-115); Potassium 3.6 mmol/L (3.3-5.1); Sodium 140 mmol/L (135-145); Total Protein 7.5 g/dL (6.5-8.0)
--- NOTE | 2024-10-05 14:04 | PC.NURSE ---
This RN was in the room to place IV for medications and CT, pt has multiple complaints of pain, in her lower abd, in her bladder, and head. Pt reporting she has not urinated since yesterday, this RN asked tech to do a bladder scan, with was less than 300. When this RN was attempting to ask more details she was unable to really give a lot of details, and or would change her story as to the complaints. IV placed, pt aware to not eat or drink at this time until we have the results from her CT scan
[2024-10-05] MEDS: iohexoL 350 MG/ML 100 ML INFUS..BTL IV (14:24)
[2024-10-05 14:55] LABS: Appearance Urine Clear; Color Urine Yellow; Glucose Urine UA Negative (Negative); Leukocyte Esterase Urine Negative (Negative); Nitrite Urine Negative (Negative); Specific Gravity - Urine 1.015 (1.005-1.025); Urine Blood Negative (Negative); Urine Ketones Negative (Negative); Urine Protein Negative (Neg-Trace)
--- OUTSIDE RECORDS SUMMARY | 2024-10-05 15:53 | XMS_ITS | Encounter Summary ---
Author Organization [facility] Address [address] [place] [address] Care Team Providers Care Access Control Specialist Name Role Phone Sly Avery DO Primary Care Provider [phone] Carlie Tillman MD Unavailable [phone] Emery Guerrero MD Unavailable [phone] Encounter Details Date Type Department Care Team (Late st Contact Info) Description 12/19/2023 Scanned Document [facility] Department Of Manager Agriculture [place] [address] [place] [phone] Carlie Tillman MD [address] [place] [address] Social History Tobacco Use Types Packs/Day Years [...] Care Team (Late st Contact Info) Description 11/08/2024 11:30 AM EDT Office Visit [facility] Department of Pulmonology [place] [address] [facility] [address] [place] [address] Janessa Gonzalez, HYDRAULIC MINER [address] [place] [address] 11/16/2024 2:20 PM EDT Consult [facility] Heart & Vascular [place] 7 [facility] [address] [place] [phone] Emery Guerrero MD 7 [facility] [address] [place] [address] 12/03/2024 1:00 PM EDT Consult [facility] Department of Endocrinology [place] [address] [facility] [address] [place] [phone] Shazia Rasheed MD [address] [place] [address] documented as of this encounter Visit Diagnoses Not on filedocumented in this encounter Care Teams Access Control Specialist Relationship Specialty Start Date End Date Sly Avery DO PCP - General Internal Medicine 10/12/17 Carlie Tillman MD 12[address] [facility] [address] [place] [address] Obstetrics and Gynecology 09/02/22 Emery Guerrero MD [address] [place] [address] Primary Inspector Assemblies And Installations Cardiovascular Disease 08/10/24 documented as of this encounter
--- OUTSIDE RECORDS SUMMARY | 2024-10-05 15:53 | XMS_ITS | Encounter Summary ---
Author Organization [facility] Address [address] [place] [address] Care Team Providers Care Space Studies Faculty Member Name Role Phone Sly Avery DO Primary Care Provider [phone] Andry Kiser MD Primary Care Provider [phone] Sly Avery DO Primary Care Provider [phone] Carlie Tillman MD Unavailable [phone] Emery Guerrero MD Unavailable [phone] Encounter Details Date Type Department Care Team (Late st Contact Info) Description 04/18/2016 Prep for Surgery [facility] OBGYN IP [address] [place] [address] Carlie Tillman MD [address] [place] [address] Social History Tobacco Use Types Packs/Day Years [...] Tillman MD - 04/18/2016 11:20 AM EDT 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 & Physical Admit Date: No admission [...] equivalent, 2 Glasses of wine per week Field Tax Auditor History LMP Postmenopausal Age at Menarche Age at First Age at Menopause Field Tax Auditor History Comments Sexual Activity Not Asked; No partner data on record Contraception No contraception data on record Field Tax Auditor Medical History Field Tax Auditor Surgical History CAGE 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 Menopause: postmenopausal Allergies Allergies Allergen Reactions [...] Studies office u/s reveals endometrial polyps, anteverted [id number] uterus, normal ovaries Sign: Carlie Tillman MD 04/18/2016 11:20 AM documented in this encounter Plan of Treatment Upcoming Encounters Date Type Department Care Team (Late st Contact Info) Description 11/08/2024 11:30 AM EDT Office Visit [facility] Department of Pulmonology [place] [id number] [facility] [address] [place] [address] Janessa Gonzalez, LICENSED OCCUPATIONAL THERAPY ASSISTANT [address] [place] [address] 11/16/2024 2:20 PM EDT Consult [facility] Heart & Vascular [place] 7 [facility] [place] [address] [place] [phone] Emery Guerrero MD 7 [facility] [address] [place] [address] 12/03/2024 1:00 PM EDT Consult [facility] Physicians Department of Endocrinology [place] [address] [facility] [address] [place] [address] Shazia Rasheed MD [address] [place] [address] documented as of this encounter Visit Diagnoses Not on filedocumented in this encounter Care Teams Space Studies Faculty Member Relationship Specialty Start Date End Date Sly Avery DO PCP - General Internal Medicine 01/05/16 10/31/16 Andry Kiser MD PCP - General Internal Medicine 11/01/16 10/11/17 Sly Avery DO PCP - General Internal Medicine 10/12/17 Carlie Tillman MD 1210 [facility] [address] [place] [address] Obstetrics and Gynecology 09/02/22 Emery Guerrero MD [address] [place] [address] Primary Kids Activities Coach Cardiovascular Disease 08/10/24 documented as of this encounter
--- OUTSIDE RECORDS SUMMARY | 2024-10-05 15:53 | XMS_ITS | Encounter Summary ---
Author Organization [facility] Address [address] [place] [address] Care Team Providers Care Auger Mill Operator Name Role Phone Sly Avery DO Primary Care Provider [phone] Carlie Tillman MD Unavailable [phone] Emery Guerrero MD Unavailable [phone] Encounter Details Date Type Department Care Team (Late Contact Info) Description 12/29/2023 Scanned Document [facility] Department Of Principal Technical Writer [place] [address] [place] [phone] Carlie Tillman MD [address] [place], [place] [phone] Social History Tobacco Use Types Packs/Day Years [...] Department Care Team (Late Contact Info) Description 11/08/2024 11:30 AM EDT Office Visit [facility]icians Department of Pulmonology [place] [address] [address] [facility] [address] [place] [address] Janessa Gonzalez, MIXER RUNNER [address] [place] [address] 11/16/2024 2:20 PM EDT Consult [facility] Heart & Vascular [place] 7 [facility] [address] [place] [phone] Emery Guerrero MD 7 [facility] [address] [place] [address] 12/03/2024 1:00 PM EDT Consult [facility] Department of Endocrinology [place] [address]60 [facility] [address] [place] [phone] Shazia Rasheed MD [address] [place] [address] documented as of this encounter Visit Diagnoses Not on filedocumented in this encounter Care Teams Auger Mill Operator Relationship Specialty Start Date End Date Sly Avery DO PCP - General Internal Medicine 10/12/17 Carlie Tillman MD 1210 [facility] [address] [place] [address] Obstetrics and Gynecology 09/02/22 Emery Guerrero MD [address] [place] [address] Primary Paving Stone Installer Cardiovascular Disease 08/10/24 documented as of this encounter
--- OUTSIDE RECORDS SUMMARY | 2024-10-05 15:53 | XMS_ITS | Clinical Summary ---
Author Organization [employer] Address [address] [place] [address] [address] [place] [address] Care Team Providers Care Bright Cutter Name Role Phone Unavailable Primary Care Provider [...] to complete this topic Insurance [facility] - [facility]
--- OUTSIDE RECORDS SUMMARY | 2024-10-05 15:53 | XMS_ITS | Clinical Summary ---
Author Organization [facility] Address [address] [place] [address] Phone Care Team Providers Care Certified Ophthalmic Medical Technician Name Role Phone Andry Kiser MD Primary Care Provider [phone] Allergies Active Allergy Reactions Criticality Noted Date [...] COLONOSCOPY, CONSTIPATION; Surgeon: Aryan Dudley DO; Location: [facility] END[facility]COPY; Service: Gastroenterology; Laterality: N/A; MYOMECTOMY 2015 [...] DX:GERD (gastroesophageal reflux disease) Stroke (CMS/HCC) DX:Stroke ([facility]) ;COMMENT: minor stroke per pt [...] 1:00 PM EDT Consult [facility] [place] [address] [place] [address] Trinidad Christine, ALIRIO [address] [place], [place] [id number] Health Maintenance Due Date Last Done Comments [...] Maintenance Results * Depression Screening (07/22/2022) Pathologist [facility] Depression Screening Abstracted us Historical Provider HEALTH MAINTENANCE Final Result * Annual BMP Blood Test (07/20/2022) Pathologist [facility] Annual BMP Blood Test Abstracted us Historical Provider HEALTH MAINTENANCE Final Result * (ABNORMAL) Lipid panel (07/20/2022) Pathologist [facility] LDL/HDL Ratio 5.7(A) <=5 Triglycerides 481(A) <=150 [...] your patient to us, Torres Araujo MD [id number] (Electronically Signed - 10/20/2018 12:30) Copy: ANDRY ??[facility] [address] [address] PATIENT , ?? Procedure Note [...] your patient to us, Torres Araujo MD [id number] (Electronically Signed - 10/20/2018 12:30) Copy: ANDRY KISER MD [facility] MEDICINE [address] [place] [id number] PATIENT , us Radiology Results Historical IMNader BI PROCEDURE S Final Result from Last 3 Months or Most Recently Relevant to Health Maintenance Insurance MEDICARE Care Teams Certified Ophthalmic Medical Technician Relationship Specialty Start Date End Date Andry Kiser MD [address] [place] [address] [address] [place] [address] PCP - General Family Medicine 10/08/16
--- OUTSIDE RECORDS SUMMARY | 2024-10-05 15:53 | XMS_ITS | Encounter Summary ---
Author Organization Formerly [facility] Address [address] [place] [address] Care Team Providers Care Weapons Officer Name Role Phone Sly Avery DO Primary Care Provider [phone] Carlie Tillman MD Unavailable [phone] Emery Guerrero MD Unavailable [phone] Encounter Details Date Type Department Care Team (Late Contact Info) Description 08/08/2023 Scanned Document [facility] Department of Pulmonology [place] [address] [place] [address] [address] [place] [address] Wendi Hernandez MD [address] [facility] [address] [place], [place] [id number] Social History Tobacco Use Types Packs/Day Years [...] 11/08/2024 11:30 AM EDT Office Visit [facility] Department of Pulmonology [place] [address] [place] [address] [address] [place] [address] Janessa Gonzalez, ISSUE CLERK [address] [place] [address] 11/16/2024 2:20 PM EDT Consult [facility] [place] 7 [facility] [address] [place] [phone] Emery Guerrero MD 7 [facility] [address] [place] [address] 12/03/2024 1:00 PM EDT Consult [facility] Department of Endocrinology [place] [address] [facility] [address] [place] [address] Shazia Rasheed MD [address] [place], [place] [id number] documented as of this encounter Visit Diagnoses Not on filedocumented in this encounter Care Teams Weapons Officer Relationship Specialty Start Date End Date Sly Avery DO PCP - General Internal Medicine 10/12/17 Carlie Tillman MD 1210 [facility] [address] [place] [address] Obstetrics and Gynecology 09/02/22 Emery Guerrero MD [address] [place] [address] Primary Herb Doctor Cardiovascular Disease 08/10/24 documented as of this encounter
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
--- OUTSIDE RECORDS SUMMARY | 2024-10-05 15:54 | XMS_ITS | Clinical Summary ---
Author Organization [facility] Address [address] [place] [address] Care Team Providers Care Camp Recreation Specialist Name Role Phone Andry Kiser MD Primary Care Provider [phone] Allergies Active Allergy Reactions Criticality Noted Date [...] 1 01/15/2024 Active ergocalciferol (VITAMIN D2) capsule 40677 units Take 1 capsule (50,000 Units total) [...] Advance Directives For more information, please contact: [phone] Latest Code Status on File Code Status [...] following way: discussion with patient. Care Teams Camp Recreation Specialist Relationship Specialty Start Date End Date Andry Kiser MD PCP - General Family Medicine 10/08/16
--- OUTSIDE RECORDS SUMMARY | 2024-10-05 15:54 | XMS_ITS | Continuity of Care Document ---
Author Organization [facility] Address [address] [address] Phone Care Team Providers Care Engineering Laboratory Technician Name Role Phone Herber Garcia MD Unavailable Unavailable Procedures Procedure Date 2 D Echo With Colorflow Advance Directives Directive Yes / No Effective Date File Name No Information Encounters Encounter Description Practice Location Reason(s) For Visit Diagnoses Date Provider Providers Copied on Encounter [facility], [address] [place] [address], [id number], [place] tel:[phone] [facility] No Information Jose Craven. [address] [facility] [address], [place], [id number] , [place]. tel:[phone] Family History Family Member Type Diagnosis Age At Onset No Information Payers Payer name Insurance type Covered democrat ID Authoriza tion(s) VIJAY GRAYSON [id number] Social History Type Description Quantity Date Captured [...]
== END 2024-10-05 15:55 | disposition home or self-care (01) ==
PROVIDERS: Registered Nurse Emergency; Emergency Provider Emergency Medicine
DX: R10.32 Left lower quadrant pain (principal); I10 Essential (primary) hypertension; E78.00 Pure hypercholesterolemia, unspecified; Z79.899 Other long term (current) drug therapy
CPT/HCPCS: 36415; 74177; 80053; 81003; 85025; 96372; 96374; 96375; 99284; 99285; J2270; J2405; J3030; Q9967

== ENCOUNTER → 2024-10-05 13:19 | Outpatient (BNV) | payer OTHER, MEDICARE, SELFPAY | PROVIDERS: Emergency Provider Emergency Medicine; Visit Provider Radiology Diagnostic Radiology | DX: N20.0 Calculus of kidney (principal) | CPT/HCPCS: 74177 ==

== ENCOUNTER 2024-10-13 12:46 | Outpatient (AMB) | payer MEDICARE, OTHER, SELFPAY ==
[2024-10-13 12:52] VITALS: BP 130/76; PULSE 72; O2SAT 96; BMI 33.5
--- NOTE | 2024-10-13 12:52 | MHC.PC.OV ---
Vital Signs 10/13/24 12:52 Height 5 ft 4 in Weight 195 lb BMI 33.5 BP 130/76 Blood Pressure Location Lt brachial Position Sitting Pulse 72 Pulse Source Pulse Oximeter Pulse Oximetry (%) 96 Oxygen Delivery Method Room Air Intake Visit Reasons: establish care Instrumentation Engineer Required: No Accompanied by: Self / Same As Patient Allergies No Known Allergies Allergy (Verified 10/13/24 13:15) Medication List - Last Reconciled 10/17/24 by Billy May MD amlodipine 5 mg PO DAILY amoxicillin-pot clavulanate 875-125 mg 1 tab PO BID 10 days aripiprazole 2 mg PO DAILY atorvastatin 80 mg PO DAILY bupropion HCl XL 300 mg PO DAILY cariprazine (Vraylar) 1.5 mg PO DAILY cetirizine 10 mg PO DAILY clonazepam 2 mg PO TID PRN dexamethasone 4 mg PO dicyclomine 10 mg PO TID PRN dicyclomine 20 mg PO TID ergocalciferol (vitamin D2) (Vitamin D2) 1,250 mcg PO QWEEK estradiol (Estring) 1 vag ring vaginal [id number] famotidine 20 mg PO BID gabapentin 100 mg PO DAILY hydrocortisone 2% 1 appl topical TID ibuprofen 400 mg PO Q6H PRN ibuprofen 800 mg PO Q8H PRN ketorolac 10 mg PO Q8H PRN levothyroxine (Tirosint) 125 mcg PO DAILY lidocaine 5% (Lidoderm) 1 patch topical DAILY linaclotide (Linzess) 145 mcg PO DAILY losartan-hydrochlorothiazide 100-12.5 mg 1 tab PO DAILY lurasidone 20 mg PO DAILY metformin 500 mg PO BID metoclopramide HCl (Reglan) 5 mg PO DAILY PRN mometasone 50 mcg/actuation 2 sprays intranasal DAILY olopatadine 0.6% sprays intranasal omega-3 acid ethyl esters 1 cap PO BID sertraline 100 mg PO DAILY sumatriptan succinate take 1 tab at onset of headache; if no relief may repeat 1 tab after at least 2 hrs; max = 4 tabs/24 hr temazepam 30 mg PO BEDTIME PRN tirzepatide (weight loss) (Zepbound) 2.5 mg subcut QWEEK trazodone 100 mg PO BEDTIME Tobacco use date assessed: 10/13/24 Fall risk assessment: No Falls in past year Last assessed Fall Risk: 10/13/24 Dental Screening Dental Screen Date: 10/13/24 Did you have a dental visit in the last 12 months?: Yes Did you have a dental problem in the last 6 months where you did not have access to dental care?: No Was dental information given to patient?: Patient has dentist HPI establish care HPI Details Patient comes in today to establish care - is a new patient to the practice Patient recently moved here to [facility]; her previous PCP was a Dr. Andry Kiser in [place], [place] Patient states that she has been experiencing increased nasal and sinus congestion / sinus pressure for at least a month now States that she has been experiencing on and off dizziness lately and at times, feels off-balanced She has also felt flushed and slightly feverish at times recently but is not sure if what she is experiencing is actually a fever or not She has also noticed some blood at times when she blows her nose She has tried using some OTC nasal spray lately with some relief Adds that she went to the ER last week for increased left-sided abdominal pain Work ups done in the ER, including an abdominal and pelvic CT, came back negative - No acute findings in the abdomen or pelvis, and a non-obstructing 6 mm calculus in the right kidney Relates (+) headaches at times; she denies any sore throat Denies any chest pains, no increased SOB No nausea/vomiting, no change in bowel habits noted States that she is seeing a psychiatrist for her mood disorder and that her psychiatrist is the one prescribing and managing her psych prescriptions [facility] Medical History (Updated 10/17/24 @ 23:08 by Billy May MD) Elevated LFTs Obesity (BMI 30-39.9) Bipolar depression Insomnia GERD without esophagitis Vitamin D deficiency Pure hypercholesterolemia Essential hypertension Acquired hypothyroidism Family History Other Breast cancer Cancer of ear Diabetes High cholesterol Hypertension Stomach cancer Social History Housing: Apartment Patient Tobacco Use Status: Never used Tobacco e-Cigarette/Vaping Use: Never Used service: No Current occupational status: retired Current occupational exposures/hazards: No Cognitive needs: No Hearing needs: No Vision needs: Yes Questionnaire PHQ-9 Over the last 2 weeks, how often have you been bothered by any of the following problems? 1. Little interest or pleasure in doing things: nearly every day 2. Feeling down, depressed, or hopeless: nearly every day 3. Trouble falling or staying asleep, or sleeping too much: nearly every day 4. Feeling tired or having little energy: more than half the days 5. Poor appetite or overeating: nearly every day 6. Feeling bad about yourself - or that you are a failure or have let yourself or your family down: more than half the days 7. Trouble concentrating on things, such as reading the newspaper or watching television: not at all 8. Moving or speaking so slowly that other people could have noticed. Or the opposite - being so fidgety or restless that you have been moving around a lot more than usual: not at all 9. Thoughts that you would be better off or of hurting yourself in some way: not at all Total score: 16 Depression Screening Interpretation: Positive Depression Screening Follow-up: Existing condition and In treatment Depression Screening Done: Yes [address]8101 - PHQ-9 Billing: Yes Source: Developed by Drs. Emeka Acosta, Charis Hernandez, Ricki Murdock and colleagues, with an educational devin from [employer]. Thrive Questionnaire Date Thrive assessed: 10/13/24 I am a: Patient What is your living situation today?: I have a steady place to live Within the past 12 months, did the food you bought not last and you didn't have the money to get more?: Sometimes True Within the past 12 months, did you worry whether your food would run out before you got money to buy more?: Sometimes True Do you have trouble paying for medicines?: I choose not to answer this question Do you have trouble getting transportation to medical appointments?: No Do you have trouble paying your heating and electricity bill?: No Do you have trouble taking care of your child, family member or friend?: No Do you have trouble with day-to-day activities such as bathing, preparing meals, shopping, managing finances, etc.?: No Are you currently unemployed and looking for a job?: I choose not to answer this question Are you interested in more education?: No Please select the resources that you would like help with: Housing/Long Term Currently or been in a relationship where the following occur: No concerns reported THRIVE Score: 2 AUDIT C Alcohol Use Questionnaire (AUDIT-C) 1. How often do you have a drink containing alcohol?: 2-3 times a week 2. How many drinks containing alcohol do you have on a typical day when you are drinking?: 1 or 2 3. How often do you have six or more drinks on one occasion?: Never Total Score: 3 Score Reviewed/Action Taken: Yes ANGELA-7 AMB Questionnaire ANGELA-7 Date ANGELA - 7 assessed: 10/13/24 Feeling nervous, anxious, or on edge: 2 = More than half the days Not being able to stop or control worryin = Not at all Worrying too much about different things: 3 = Nearly every day Trouble relaxin = Not at all Being so restless that it is hard to sit still: 0 = Not at all Becoming easily annoyed or irritable: 0 = Not at all Feeling afraid as if something awful might happen: 0 = Not at all Total ANGELA-7 score (0-4 normal; 5-9 mild; 10-14 moderate; 15-21 severe): 5 Source: Developed by Drs. Emeka Acosta, Charis Hernandez, Ricki Murdock and colleagues, with an educational devin from [employer]. Review of Systems Const Denies chills, Denies fatigue, Denies fever(s) and Reports headache(s) (on and off) ENT Denies dysphagia, Reports dizziness (at times), Denies otalgia, Reports headache(s) (on and off), Reports nasal congestion, Denies neck pain, Denies odynophagia, Reports sinus pain and Denies sore throat Card Denies chest pain, Denies palpitations and Denies dyspnea Resp Denies chest congestion, Denies cough and Denies dyspnea GI Reports abdominal pain (left-sided), Denies constipation, Denies dysphagia, Denies heartburn, Denies diarrhea, Denies nausea, Denies odynophagia and Denies vomiting Denies difficulty voiding, Denies nocturia and Denies dysuria Musc Denies back pain and Denies neck pain Skin/Breast Denies rash Neuro Reports dizziness (at times) and Reports headache(s) (on and off) Psych Reports anxiety and Reports depression Endo Denies fatigue and Denies palpitations Physical exam (Primary Care) Vital Signs: Last Vital Signs Pulse 72 10/13/24 12:52 BP 130/76 10/13/24 12:52 Pulse Ox 96 10/13/24 12:52 Oxygen Delivery Method Room Air 10/13/24 12:52 BMI result Body Mass Index 33.5 Tobacco/Smoking Status: Tobacco use Status Tobacco use date assessed 10/13/24 10/13/24 13:04 Patient Tobacco Use Status Never used Tobacco 10/13/24 13:04 e-Cigarette/Vaping Use Never Used 10/13/24 13:04 PHQ-9: PHQ-9 Score PHQ-9: Total score 16 10/13/24 13:26 Depression Screening Interpretation: Positive Depression Screening Follow-up: Existing condition and In treatment Thrive Assessment: Date of Thrive Assessment Date Thrive assessed 10/13/24 10/13/24 13:04 Currently or been in a relationship where the following occur: No concerns reported Const General: no acute distress and alert HENMT Ears: TM's normal bilaterally and EAC's normal Face and sinus: Yes sinus tenderness (bilaterally) Throat: Yes posterior oropharynx normal and Yes tonsils normal (no TP congestion) Neck Neck: Yes supple and No lymphadenopathy Thyroid: Thyroid normal Resp Auscultation: clear to auscultation bilaterally, no rales and no wheezes Cardio Rate: regular rate Rhythm: regular rhythm Heart sounds: no murmurs GI Palpation (GI): Soft to palpation, Tenderness to palpation present (GI) (left-sided), no guarding, not rigid and No Rebound tenderness present Auscultation: normal bowel sounds General: Yes no CVA tenderness Back/Spine/Pelvis Back: no CVA tenderness Thoracic/Lumbar Spine: No lumbar spinal tenderness Skin Rashes: no rashes Extrem General: Yes no clubbing, cyanosis or edema Coding Level of Care Code New Pt Level 4 (05093) Complex EM visit Add On G2211 Diagnoses Essential hypertension I10 Pure hypercholesterolemia E78.00 Acquired hypothyroidism E03.9 Left sided abdominal pain R10.9 Acute non-recurrent sinusitis, unspecified location J01.90 Sinusitis location: unspecified location Recurrence: non-recurrent Vitamin D deficiency E55.9 GERD without esophagitis K21.9 Insomnia, unspecified type G47.00 Insomnia type: unspecified Anxiety F41.9 Bipolar depression F31.9 Obesity (BMI 30-39.9) E66.9 Additional Codes PHQ-9 - 40915 - PHQ-9 Billing: Yes ([id number]) Assessment & Plan Assessment & Plan (1) Essential hypertension: Code(s): I10 - Essential (primary) hypertension Category: Medical Plan: Reinforced low sodium diet - goal is systolic BP of 120 mm or less Continue Amlodipine 5 mg QD and Losartan-HCT 100-12.5 mg QD Patient is reminded to continue monitoring her blood pressure regularly (2) Pure hypercholesterolemia: Code(s): E78.00 - Pure hypercholesterolemia, unspecified Category: Medical Plan: Reinforced low cholesterol diet Continue Atorvastatin 80 mg QD Will have patient recheck her labs and fasting lipids in 4 months for follow up (3) Acquired hypothyroidism: Code(s): E03.9 - Hypothyroidism, unspecified Category: Medical Plan: Continue Tirosint 125 mcg QD Will recheck her TFTs in 4 months for follow up (4) Left sided abdominal pain: Code(s): R10.9 - Unspecified abdominal pain Category: Medical Plan: Abdominal and pelvic CT done at the ER a couple of weeks ago came out unrevealing She was started empirically on Dicyclomine, which patient states has not really helped Will refer her to GI for further evaluation and management (5) Sinusitis, acute: Code(s): J01.90 - Acute sinusitis, unspecified Category: Medical Qualifiers: Sinusitis location: unspecified location Recurrence: non-recurrent Qualified Code(s): J01.90 - Acute sinusitis, unspecified Plan: Will start patient empirically on Augmentin 875 mg BID x 10 days (6) Vitamin D deficiency: Code(s): E55.9 - Vitamin D deficiency, unspecified Category: Medical Plan: Continue Vitamin D2 36357 units once a week (7) GERD without esophagitis: Code(s): K21.9 - Gastro-esophageal reflux disease without esophagitis Category: Medical Plan: Dietary restrictions reinforced Continue Famotidine 20 mg BID PRN (8) Insomnia: Code(s): G47.00 - Insomnia, unspecified Category: Medical Qualifiers: Insomnia type: unspecified Qualified Code(s): G47.00 - Insomnia, unspecified Plan: Sleep hygiene reinforced Continue Trazodone 100 mg Q HS and Temazepam 30 mg Q HS PRN (9) Anxiety: Code(s): F41.9 - Anxiety disorder, unspecified Category: Medical Plan: Continue Clonazepam 2 mg TID PRN Follow up with psychiatry as scheduled (10) Bipolar depression: Code(s): F31.9 - Bipolar disorder, unspecified Category: Medical Plan: Continue Aripiprazole 2 mg QD, Bupropion XL 300 mg QD, Vraylar 1.5 mg QD, Gabapentin 100 mg QD, Lurasidone 20 mg QD and Sertraline 100 mg QD Follow up with psychiatry as scheduled (11) Obesity (BMI 30-39.9): Code(s): E66.9 - Obesity, unspecified Category: Medical Plan: Reinforced diet/exercise as tolerated/lose weight Continue Tirzepatide 2.5 mg SQ once a week Follow up with weight management as scheduled Plan Follow up in 4 months Orders: Orders Free T4 (Free Thyroxine) 4 Months E03.9 - Hypothyroidism, unspecified Lipid Panel 4 Months E78.00 - Pure hypercholesterolemia, unspecified Vitamin D 25-OH Total 4 Months E55.9 - Vitamin D deficiency, unspecified Complete Blood Count Auto Diff 4 Months D64.9 - Anemia, unspecified Comprehensive [place]. Panel Fast 4 Months E78.00 - Pure hypercholesterolemia, unspecified Hemoglobin A1c 4 Months E11.9 - Type 2 diabetes mellitus without complications Thyroid Stimulating Hormone 4 Months E03.9 - Hypothyroidism, unspecified UA CC w/rflx Micro + Cult 4 Months R30.0 - Dysuria Vitamin B12 and Folate 4 Months E53.8 - Deficiency of other specified B group vitamins Referrals Gastroenterology Referral R10.9 - Unspecified abdominal pain Medications: New amoxicillin-pot clavulanate 875-125 mg 1 tab PO BID 10 days 20 tabs 0RF dexamethasone 4 mg PO ONCE
--- OUTSIDE RECORDS SUMMARY | 2024-10-13 15:07 | XMS_ITS | Encounter Summary ---
Author Organization [facility] Address [address] [place] [address] Care Team Providers Care Marketing Production Coordinator Name Role Phone Sly Avery DO Primary Care Provider [phone] Carlie Tillman MD Unavailable [phone] Emery Guerrero MD Unavailable [phone] Encounter Details Date Type Department Care Team (Late Contact Info) Description 12/29/2023 Scanned Document [facility] Department Of Glass Cylinder Flanger [address] [place] [phone] Carlie Tillman MD [address] [place] [address] Social History Tobacco Use Types Packs/Day Years Used Date Smoking Tobacco: Never Smokeless Tobacco: Never Alcohol Use Standard Drinks/Week Comments Not Currently 2 (1 standard drink = 0.6 oz pur e alcohol) min consumption Comments No Sex and Gender Information Value Date Recorded Sex Assigned at Female 07/09/2024 8:46 AM EST Legal Sex Female 3:52 PM EDT Gender Identity Female 07/09/2024 8:46 AM EST Sexual Orientation Heterosexual (straight) 07/09 8:46 AM EST documented as of this encounter Plan of Treatment Upcoming Encounters Date Type Department Care Team (Late Contact Info) Description 10/25/2024 4:30 PM EDT Office Visit [facility] Department Of Glass Cylinder Flanger [place] [address] [place] [address] Carlie Tillman MD [address] [place] [address] 11/08/2024 11:30 AM EDT Office Visit [facility] Department of Pulmonology [place] [address] [facility] [address] [place] [phone] Janessa Gonzalez, PRECISION STRUCTURAL METAL FITTER [address] [place] [address] 11/16/2024 2:20 PM EDT Consult [facility] Heart [facility] Vascular [place] [address] [phone] Emery Guerrero MD [address] [id number] 12/03/2024 1:00 PM EDT Consult [facility] Department of Endocrinology [place] [address] [facility] [address] [place] [phone] Shazia Rasheed MD [address] [place] [address] 12/20/2024 1:30 PM EDT Consult [facility] [address] [facility] [address] [place] [phone] Guerline Cora Mckeon, PRECISION STRUCTURAL METAL FITTER 85 [facility] [address] [place], [place] [phone] documented as of this encounter Visit Diagnoses Not on filedocumented in this encounter Care Teams Marketing Production Coordinator Relationship Specialty Start Date End Date Sly Avery DO PCP - General Internal Medicine 10/12/17 Carlie Tillman MD [address] [facility] [address] [place] [address] Obstetrics and Gynecology 09/02/22 Emery Guerrero MD [address] [place] [address] Primary Publication Manager Cardiovascular Disease 08/10/24 documented as of this encounter
--- OUTSIDE RECORDS SUMMARY | 2024-10-13 15:07 | XMS_ITS | Data Portability ---
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 ROMERO TO CULTU RE leukocyte esterase 3+ negati ve abnormal Not Available [facility] [address], [place], [address], 07/04/2024 10:45:20 07/01/19 25 07/04/2024 URINA LYSIS , COMPL ETE W/REF ROMERO TO CULTU RE WBC 6-10 /hpf < or = 5 abnormal Not Available [facility] [address], [place], [address], 07/04/2024 10:45:20 07/01/19 25 07/04/2024 URINA LYSIS , COMPL ETE W/REF ROMERO TO CULTU RE RBC NONE SEEN /hpf < or = 2 normal Not Available [facility] [address], [place], [address], 07/04/2024 10:45:20 07/01/19 25 07/04/2024 URINA LYSIS , COMPL ETE W/REF ROMERO TO CULTU RE squamous epithelial cells 0-5 /hpf < or = 5 Not Available [facility] [place] [facility] [address] [place], [place], [address], 07/04/2024 10:45:20 07/01/19 25 07/04/2024 URINA LYSIS , COMPL ETE W/REF ROMERO TO CULTU RE bacteria FEW /hpf none seen abnormal Not Available [facility] [place] [facility] [address], [place], [address], 07/04/2024 10:45:20 07/01/19 25 07/04/2024 URINA LYSIS , COMPL ETE W/REF ROMERO TO CULTU RE hyaline cast NONE SEEN /lpf none seen normal Not Available [facility] [place] [facility] [address] [place], [place], [address], 07/04/2024 10:45:20 07/01/19 25 07/04/2024 URINA LYSIS , COMPL ETE W/REF ROMERO TO CULTU RE note This urine was dorothea zed for the prese nce of WBC, RBC, bacte ida, casts , and other forme d eleme nts. Only those eleme nts seen were repor jeff. Not Available [facility] [place] [facility] [address] [place], [place], [address], 07/04/2024 10:45:20 07/01/19 25 07/04/2024 REFLE XIVE URINE CULTU RE reflexive urine culture CULTU RE INDIC ATED - RESUL TS TO FOLLO W Not Available [facility] [place] [facility] [address] [place], [place], [address], 07/04/2024 10:45:20 07/01/19 25 07/07/2024 HEMOG LOBIN A1C hemoglobin A1C TNP TEST NOT PERFO RMED No laven kristi-t op tube recei jennifer. Not Available [facility] [place] [facility] [address] [place], [place], [address], 07/07/2024 10:25:18 07/01/19 25 07/07/2024 CULTU RE, URINE , ROUTI NE culture, urine, routine SEE NOTE abnormal CULTU RE, URINE , ROUTI NE Micro Numbe r: [id number] Test Statu s: Final Speci men Sourc e: Urine Speci men Quali ty: Adequ ate Resul t: Great er than 100,0 00 CFU/m L of Esche juan a coli E.col i ----- ----- ----- - INT ILIANA AMOX/ CLAVU LANAT E S <=2 AMP/S ULBAC LESTER S <=2 CEFAZ HERNANDO NR <=4 2 CEFEP ANDI S <=0.1 2 CEFTA ZIDIM E S <=1 CEFTR IAXON E S <=0.2 5 CIPRO FLOXA CARA S <=0.0 6 GENTA MICIN S <=1 IMIPE NEM S <=0.2 5 LEVOF LOXAC IN S <=0.1 2 MEROP ENEM S <=0.2 5 NITRO FURAN TOIN S 32 PIP/T AZOBA CTAM S <=4 TRIME THOPR IM/HUGHES LFA S <=20 S = Susce ptibl e I = Inter media te R = Resis tant NS = Not susce ptibl e SDD = Susce ptibl e Dose Depen dent * = Not Teste d NR = Not Repor jeff NN = See Thera py Comme nts THERA PY COMME NTS Note 1: For infec tions other than uncom plica jeff UTI cause d by E. coli, K. pneum oniae or P. mirab ilis: Cefaz hernando is resis tant if ILIANA > or = 8 mcg/m L. (Dist ingui shing susce ptibl e versu s inter media te for isola kary with ILIANA < or = 4 mcg/m L requi res addit ional testi ng.) Note 2: For uncom plica jeff UTI cause d by E. coli, K. pneum oniae or P. mirab ilis: Cefaz hernando is susce ptibl e if ILIANA <32 mcg/m L and predi cts susce ptibl e to the oral agent s cefac leilani, cefdi mitzi, cefpo doxim e, cefpr ozil, cefur oxime , cepha lexin and lorac arbef . Not Available [facility] [address], [place], [address], 07/07/2024 10:25:19 07/01/19 25 07/01/2024 urina lysis , dipst ick Leukocytes Small Not Available [facility] [address] [facility], [facility] [address], [place], [address], 07/01/2024 14:49:34 07/01/19 25 07/01/2024 urina lysis , dipst ick Nitrite negati ve Not Available [address], [facility], [place], [address], 07/01/2024 14:49:34 07/01/19 25 07/01/2024 urina lysis , dipst ick Urobilinogen .2 Not Available [facility] [place] [address] [facility], [facility] [address], [place], [address], 07/01/2024 14:49:34 07/01/19 25 07/01/2024 urina lysis , dipst ick Protein Negati ve Not Available [address], [facility], [address], [place], [address], 07/01/2024 14:49:34 07/01/19 25 07/01/2024 urina lysis , dipst ick pH 7.0 Not Available [facility] [address] [facility], [address], [place], [address], 07/01/2024 14:49:34 07/01/19 25 07/01/2024 urina lysis , dipst ick Blood Negati ve Not Available [place] [address], [place], [address], 07/01/2024 14:49:34 07/01/19 25 07/01/2024 urina lysis , dipst ick Specific [place] 1.010 Not Available [place] [address], [address], [place], [address], 07/01/2024 14:49:34 07/01/19 25 07/01/2024 urina lysis , dipst ick Ketone Negati ve Not Available [address], [address], [place], [address], 07/01/2024 14:49:34 07/01/19 25 07/01/2024 urina lysis , dipst ick Bilirubin Negati ve Not Available [address], [place], [address], 07/01/2024 14:49:34 07/01/19 25 07/01/2024 urina lysis , dipst ick Glucose Negati ve Not Available [address], [place], [address], 07/01/2024 14:49:34 07/01/19 25 07/01/2024 urina lysis , dipst ick Appearance Clear Not Available [address], [place], [address], 07/01/2024 14:49:34 07/01/19 25 07/01/2024 urina lysis , dipst ick Color Pale Yellow Not Available [place] [address], [address], [place], [address], 07/01/2024 14:49:34 09/10/19 25 09/15/2024 LIPID PANEL WITH REFLE X TO DIREC T LDL cholesterol, total TNP TEST NOT PERFO RMED No serum recei jennifer. Not Available [facility] [place] [facility] [address], [place], [address], 09/15/2024 04:47:28 09/10/19 25 09/15/2024 LIPID PANEL WITH REFLE X TO DIREC T LDL HDL cholesterol TNP TEST NOT PERFO RMED No serum recei jennifer. Not Available [facility] [place] [facility] [address], [place], [address], 09/15/2024 04:47:28 09/10/19 25 09/15/2024 LIPID PANEL WITH REFLE X TO DIREC T LDL triglyceride s TNP TEST NOT PERFO RMED No serum recei jennifer. Not Available [facility] [place] [facility] [address], [place], [address], 09/15/2024 04:47:28 09/10/19 25 09/15/2024 LIPID PANEL WITH REFLE X TO DIREC T LDL LDL-choleste rol TNP TEST NOT PERFO RMED No serum recei jennifer. Not Available [facility] [place] [facility] [address], [place], [address], 09/15/2024 04:47:28 09/10/19 25 09/15/2024 LIPID PANEL WITH REFLE X TO DIREC T LDL chol/HDLC ratio TNP TEST NOT PERFO RMED No serum recei jennifer. Not Available [facility] [place] [facility] [address], [place], [address], 09/15/2024 04:47:28 09/10/19 25 09/15/2024 LIPID PANEL WITH REFLE X TO DIREC T LDL non HDL cholesterol TNP TEST NOT PERFO RMED No serum recei jennifer. Not Available [facility] [address], [place], [address], 09/15/2024 04:47:28 09/10/19 25 09/15/2024 COMPR EHENS RAKEL METAB OLIC PANEL glucose TNP TEST NOT PERFO RMED No serum recei jennifer. Not Available [facility] [address], [place], [address], 09/15/2024 04:47:29 09/10/19 25 09/11/2024 ALBUM IN, RANDO M URINE W/CRE ATINI NE creatinine, random urine 146 mg/dL 20-275 normal Not Available [facility] [address], [place], [address], 09/11/2024 12:31:42 09/10/19 25 09/11/2024 ALBUM IN, RANDO M URINE W/CRE ATINI NE albumin, urine 8.6 mg/dL see note: normal Refer ence Range : Refer ence Range Not estab lishe d Not Available [facility] [address], [place], [address], 09/11/2024 12:31:42 09/10/19 25 09/11/2024 ALBUM IN, RANDO M URINE W/CRE ATINI NE albumin/crea tinine ratio, random urine 59 mg/g_ creat <30 high The ADA defin es abnor malit ies in album in excre tion as follo ws: Album inuri a Categ ory Resul t (mg/g creat inine ) Mellisa l to Mildl y incre ased <30 Moder ately incre ased 30-29 9 Sever álvaro incre ased > OR = 300 The ADA recom mends that at least two of three speci mens colle cted withi n a 3-6 month perio d be abnor mal befor e consi sharon g a patie nt to be withi n a diagn ostic categ ory. Not Available [facility] [place] [facility] [address], [place], [address], 09/11/2024 12:31:42 09/10/1909/11/2024 URINA LYSIS , COMPL ETE W/REF ROMERO TO CULTU RE color YELLOW yellow normal Not Available [facility] [place] [facility] [address], [place], [address], 09/11/2024 12:31:42 09/10/1909/11/2024 URINA LYSIS , COMPL ETE W/REF ROMERO TO CULTU RE appearance CLOUDY clear abnormal Not Available [facility] [place] [facility] [address], [place], [address], 09/11/2024 12:31:42 09/10/1909/11/2024 URINA LYSIS , COMPL ETE W/REF ROMERO TO CULTU RE specific gravity 1.024 1.001- 1.035 normal Not Available [facility] [place] [facility] [address], [place], [address], 09/11/2024 12:31:42 09/10/1909/11/2024 URINA LYSIS , COMPL ETE W/REF ROMERO TO CULTU RE pH 6.0 5.0-8. 0 normal Not Available [facility] [place] [facility] [address], [place], [address], 09/11/2024 12:31:42 09/10/1909/11/2024 URINA LYSIS , COMPL ETE W/REF ROMERO TO CULTU RE glucose NEGATI VE negati ve normal Not Available [facility] [address], [place], [address], 09/11/2024 12:31:42 09/10/1921 0909/11/2024 URINA LYSIS , COMPL ETE W/REF ROMERO TO CULTU RE bilirubin NEGATI VE negati ve normal Not Available [facility] [place] [facility] [address], [place], [address], 09/11/2024 12:31:42 09/10/19 25 09/11/2024 URINA LYSIS , COMPL ETE W/REF ROMERO TO CULTU RE ketones NEGATI VE negati ve normal Not Available [facility] [place] [facility] [address], [place], [address], 09/11/2024 12:31:42 09/10/19 25 09/11/2024 URINA LYSIS , COMPL ETE W/REF ROMERO TO CULTU RE occult blood NEGATI VE negati ve normal Not Available [facility] [place] [facility] [address], [place], [address], 09/11/2024 12:31:42 09/10/19 25 09/11/2024 URINA LYSIS , COMPL ETE W/REF ROMERO TO CULTU RE protein 1+ negati ve abnormal Not Available [facility] [place] [facility] [address], [place], [address], 09/11/2024 12:31:42 09/10/19 25 09/11/2024 URINA LYSIS , COMPL ETE W/REF ROMERO TO CULTU RE nitrite NEGATI VE negati ve normal Not Available [facility] [place] [facility] [address], [place], [address], 09/11/2024 12:31:42 09/10/19 25 09/11/2024 URINA LYSIS , COMPL ETE W/REF ROMERO TO CULTU RE leukocyte esterase 2+ negati ve abnormal Not Available [facility] [place] [facility] [address], [place], [address], 09/11/2024 12:31:42 09/10/19 25 09/11/2024 URINA LYSIS , COMPL ETE W/REF ROMERO TO CULTU RE WBC > OR = 60 /hpf < or = 5 abnormal Not Available [facility] [place] [facility] [address], [place], [address], 09/11/2024 12:31:42 09/10/19 25 09/11/2024 URINA LYSIS , COMPL ETE W/REF ROMERO TO CULTU RE RBC NONE SEEN /hpf < or = 2 normal Not Available [facility] [address], [place], [address], 09/11/2024 12:31:42 09/10/19 25 09/11/2024 URINA LYSIS , COMPL ETE W/REF ROMERO TO CULTU RE squamous epithelial cells 0-5 /hpf < or = 5 Not Available [facility] [place] [facility] [address], [place], [address], 09/11/2024 12:31:42 09/10/19 25 09/11/2024 URINA LYSIS , COMPL ETE W/REF ROMERO TO CULTU RE bacteria FEW /hpf none seen abnormal Not Available [facility] [place] [facility] [address], [place], [address], 09/11/2024 12:31:42 09/10/19 25 09/11/2024 URINA LYSIS , COMPL ETE W/REF ROMERO TO CULTU RE hyaline cast NONE SEEN /lpf none seen normal Not Available [facility] [place] [facility] [address], [place], [address], 09/11/2024 12:31:42 09/10/19 25 09/11/2024 URINA LYSIS , COMPL ETE W/REF ROMERO TO CULTU RE note This urine was dorothea zed for the prese nce of WBC, RBC, bacte ida, casts , and other forme d eleme nts. Only those eleme nts seen were repor jeff. Not Available [facility] [place] [facility] [address], [place], [address], 09/11/2024 12:31:42 09/10/19 25 09/11/2024 REFLE XIVE URINE CULTU RE reflexive urine culture CULTU RE INDIC ATED - RESUL TS TO FOLLO W Not Available [facility] [place] [facility] [address], [place], [address], 09/11/2024 12:31:43 09/10/19 25 09/15/2024 CBC (INCL UDES DIFF/ PLT) white blood cell count TNP TEST NOT PERFO RMED No laven kristi-t op tube recei jennifer. Not Available [facility] [place] [facility] [address], [place], [address], 09/15/2024 04:47:30 09/10/19 25 09/15/2024 TSH+F REE T4 TSH TNP TEST NOT PERFO RMED No serum recei jennifer. Not Available [facility] [place] [facility] [address], [place], [address], 09/15/2024 04:47:30 09/10/19 25 09/15/2024 TSH+F REE T4 T4, free TNP TEST NOT PERFO RMED No serum recei jennifer. Not Available [facility] [place] [facility] [address], [place], [address], 09/15/2024 04:47:30 09/10/1909/15/2024 HEMOG LOBIN A1C hemoglobin A1C TNP TEST NOT PERFO RMED No laven kristi-t op tube recei jennifer. Not Available [facility] [place] [facility] [address], [place], [address], 09/15/2024 04:47:31 09/10/19 25 09/11/2024 SURES WAB(R ) ADVAN KAITLYNN VAGIN ITIS PLUS, TMA sureswab(R) adv bacterial vaginosis (bv), tma NEGATI VE negati ve normal Not Available [facility] [place] [facility] [address], [place], [address], 09/11/2024 12:31:44 09/10/19 25 09/11/2024 SURES WAB(R ) ADVAN KAITLYNN VAGIN ITIS PLUS, TMA luis species NOT DETECT ED not detect ed normal Not Available [facility] [place] [facility] [address], [place], [address], 09/11/2024 12:31:44 09/10/19 25 09/11/2024 SURES WAB(R ) ADVAN KAITLYNN VAGIN ITIS PLUS, TMA luis glabrata NOT DETECT ED not detect ed normal Kimi da speci es C. albic ans, C. tropi calis , C. parap alana is, and/o r C. dubli niens is can be detec jeff, but not diffe renti ated, in the Kimi da spp. resul t. Not Available [facility] [place] [facility] [address] [place] [address], [place], [address], 09/11/2024 12:31:44 09/10/19 25 09/11/2024 SURES WAB(R ) ADVAN KAITLYNN VAGIN ITIS PLUS, TMA trichomonas vaginalis (TV), tma NOT DETECT ED not detect ed normal Not Available [facility] [place] [facility] [address], [place], [address], 09/11/2024 12:31:44 09/10/19 25 09/11/2024 SURES WAB(R ) ADVAN KAITLYNN VAGIN ITIS PLUS, TMA chlamydia trachomatis RNA, tma, urogenital NOT DETECT ED not detect ed normal Not Available [facility] [place] [facility] [address], [address], 09/11/2024 12:31:44 09/10/19 25 09/11/2024 SURES WAB(R ) ADVAN KAITLYNN VAGIN ITIS PLUS, TMA neisseria gonorrhoeae RNA, tma, urogenital NOT DETECT ED not detect ed normal For addit ional infor reinier carmona refer to https ://ed ucati on.qu estCurrent Media. LIFT12/f aq/FA Q154 (This link is being provi ded for infor paulo james/ bill cabrales purpo ses only. ) Not Available [facility] [place] [facility] [address], [place], [address], 09/11/2024 12:31:44 09/10/19 25 09/15/2024 CULTU RE, URINE , ROUTI NE culture, urine, routine SEE NOTE abnormal CULTU RE, URINE , ROUTI NE Micro Numbe r: [id number] Test Statu s: Final Speci men Sourc e: Urine Speci men Quali ty: Adequ ate Resul t: Great er than 100,0 00 CFU/m L of Citro bacte r amalo natic us C.ama lonat icus ----- ----- ----- - INT ILIANA AMOX/ CLAVU LANAT E S 4 CEFAZ HERNANDO R >=64 1 CEFEP ANDI S <=0.1 2 CEFTA ZIDIM E S <=1 CEFTR IAXON E R 32 CIPRO FLOXA CARA S <=0.0 6 GENTA MICIN S <=1 IMIPE NEM S <=0.2 5 LEVOF LOXAC IN S <=0.1 2 MEROP ENEM S <=0.2 5 NITRO FURAN TOIN S 32 PIP/T AZOBA CTAM S <=4 TRIME THOPR IM/HUGHES LFA S <=20 S = Susce ptibl e I = Inter media te R = Resis tant NS = Not susce ptibl e SDD = Susce ptibl e Dose Depen dent * = Not Teste d NR = Not Repor jeff NN = See Thera py Comme nts THERA PY COMME NTS Note 1: For uncom plica jeff UTI cause d by E. coli, K. pneum oniae or P. mirab ilis: Cefaz hernando is susce ptibl e if ILIANA <32 mcg/m L and predi cts susce ptibl e to the oral agent s cefac leilani, cefdi mitzi, cefpo doxim e, cefpr ozil, cefur oxime , cepha lexin and lorac arbef . Not Available [facility] [place] [facility] [address], [place], [address], 09/15/2024 04:47:32 09/10/19 25 09/09/2024 urina lysis , dipst ick Leukocytes Small Not Available [facility] [address], [facility], [place], [address], 09/09/2024 11:10:37 09/10/19 25 09/09/2024 urina lysis , dipst ick Nitrite negati ve Not Available [facility] [address], [address], [place], [address], 09/09/2024 11:10:37 09/10/19 25 09/09/2024 urina lysis , dipst ick Urobilinogen .2 Not Available [facility] [address], [address], [place], [address], 09/09/2024 11:10:37 09/10/19 25 09/09/2024 urina lysis , dipst ick Protein Trace Not Available [facility] [address], [address], [place], [address], 09/09/2024 11:10:37 09/10/19 25 09/09/2024 urina lysis , dipst ick pH 6.0 Not Available [address], [address], [place], [address], 09/09/2024 11:10:37 09/10/19 25 09/09/2024 urina lysis , dipst ick Blood Negati ve Not Available [facility] [address] [place] [address], [place], [address], 09/09/2024 11:10:37 09/10/19 25 09/09/2024 urina lysis , dipst ick Specific [place] 1.020 Not Available [facility] [place] [address], [address], [place], [address], 09/09/2024 11:10:37 09/10/19 25 09/09/2024 urina lysis , dipst ick Ketone Negati ve Not Available [facility] [address] [place] [address], [address], [place], [address], 09/09/2024 11:10:37 09/10/19 25 09/09/2024 urina lysis , dipst ick Bilirubin Negati ve Not Available [place] [address], [address], [place], [address], 09/09/2024 11:10:37 09/10/19 25 09/09/2024 urina lysis , dipst ick Glucose Negati ve Not Available [place] [address], [address], [place], [address], 09/09/2024 11:10:37 09/10/19 25 09/09/2024 urina lysis , dipst ick Appearance Cloudy Not Available [facility] [address] [place] [address], [place], [address], 09/09/2024 11:10:37 09/10/19 25 09/09/2024 urina lysis , dipst ick Color Dark Yellow Not Available [place] [address], [address], [place], [address], 09/09/2024 11:10:37 09/10/19 25 09/09/2024 hemog lobin A1C, finge rstic k HbA1c 6.4 Not Available [facility] [place] [address], [place], [address], 09/09/2024 11:11:11 09/17/19 25 09/16/2024 US, abdom inal wall No observ ation record ed. [email or web address] a [facility] ([facility]) [address], [place], [address], 09/17/2024 12:21:41 Result Notes None recorded. Problems Name Problem SNOMED Code Status Onset Date Resolution Date Notes Provider Name and Address Organization Details Recorded Time Type 2 diabetes mellitus without complication 321719788 Active 2023 ALIRIO Valderrama [address] [place], [address] [facility] 13:29:58 Mixed hyperlipidemia 735663393 Active 2023 ALIRIO Valderrama [address] [place], [address], [place] [facility] 13:30:11 Acquired hypothyroidism 313928280 Active 2023 ALIRIO Valderrama [address] [place], [address], [place] [facility] 13:40:40 Major depressive disorder 551276663 Active 2023 ALIRIO Valderrama [address] [place], [address], [place] [facility] 4 13:46:19 Migraine without aura, not refractory 396783469 Active 2023 ALIRIO Valderrama [address] [place], [address], [place] [facility] 12/05/202 4 14:15:05 Obesity caused by energy imbalance 998030478 Active 2023 ALIR[address] [place], [address], [place] [facility] 4 14:32:05 Bleeding from nose 101038225 Active 2023 ALIRIO [address] [place], [address], [place] [facility] 5 15:13:42 Swelling of bilateral lower limbs 620666300 Active 2023 ALIR[address] [place], [address], [place] [facility] 4 14:38:23 Recurrent major depressive episodes 433667186 Active 2024 ALIRIO Valderrama [address] [place], [address], [place] [facility] [facility] 14:23:51 Computed tomography result abnormal 126050827 Active 2024 ALIRIO Valderrama [address] [place], [address], [place] [facility] 14:38:39 Essential hypertension 20925067 Active 2024 ALIRIO Valderrama [address] [place], [address], [place] [facility] 5 12:50:28 Nodule of lung 011290183 Active 2024 ALIRIO Valderrama [address] [place], [address], [place] [facility] 5 14:43:01 Dysuria 19479048 Active 2024 ALIRIO Valderrama [address] [place], [address], [place] [facility] 14:49:26 Acute urinary tract infection 019248289 Active 2024 ALIRIO Valderrama [address] [place], [address], [place] [facility] 14:54:50 Constipation 04877942 Active 2024 ALIRIO Valderrama [address] [place], [address], [place] [facility] 14:55:59 Type 2 diabetes mellitus 77840238 Active 2024 ALIRIO Valderrama [address] [place], [address], [place] - [facility] 10:44:43 Abdominal mass 786413749 Active 2024 ALIRIO Valderrama [address] [place], [address], [place] [facility] 11:22:59 Pruritus of vagina 08322164 Active 2024 ALIRIO Valderrama [address] [place], [address], [place] - [facility] 11:42:06 Lipoma of abdominal wall 303944504 Active 2024 ALIRIO Valderrama [address] [place], [address], [place] [facility] 11:14:54 Irritable bowel syndrome characterized by constipation 327661327 Active 2024 ALIRIO Valderrama [address] [place], [address], [place] - [facility] 11:15:43 Intolerance to lactose 514666289 Active 2024 ALIRIO Valderrama [address] [place], [address], [place] [facility] 16:29:49 Obstructive sleep apnea syndrome 53758496 Active 2024 ALIRIO Valderrama [address] [place], [address], [place] [facility] 16:34:47 Prediabetes 973327677 Active 2024 ALIRIO Valderrama [address] [place], [address], [place] [facility] 16:43:15 Chronic constipation 890532144 Active 2024 ALIRIO Valderrama [address] [place], [address], [place] [facility] 16:36:21 Problem Notes None recorded. Procedures Surgical History None recorded. Imaging Results Imaging Date Name Status LastModified by Organiz ation Details LastModified Time 09/16/2024 US, [facility] ([facility]) [address], [place], [address], 09/17/2024 12:21:41 Procedure Notes None recorded. Medical Equipment None Reported. Allergies Allergen ID Allergen Name Allergen Category Reaction Reaction Severity Criticality Documentation Date Start Date Code Code System Note Provider Name and Address Organization Details Recorded Time 944794 lactose food,medi cation abdominal pain Not available low 09/23/2024 6211 [facility]Norm ALIRIO Valderrama [address] [place], [address], [place] [facility] 10:39:29 Medications Name Sig Start Date Stop Date Status Note LastModified by Organization Details LastModified Time Prescript ion - Prior Authoriza tion Request active Not Available Not Available Not Available cyclobenz aprine 10 mg tablet TAKE 1 TABLET BY MOUTH AT BEDTIME active Not Available Not Available No t Available metformin 500 mg tablet TAKE ONE TABLET BY MOUTH TWICE A DAY active Not Available Not Available No t Available atorvasta tin 80 mg tablet active Not Available Not Available Not Available Colace 100 mg capsule Take 1 capsule every day by oral route. 2024 active Not Available Not Available Not Avai lable Estring 2 mg (7.5 mcg/24 hour) vaginal ring INSERT 1 RING INTO THE VAGINA EVERY 3 (THREE) MONTHS. FOLLOW PACKAGE DIRECTIO NS. active Not Available Not Available No t Available ketoconaz ole 2 % shampoo APPLY TOPICALL Y TWO TIMES A WEEK. APPLY TO DAMP SKIN, LATHER, LEAVE ON FOR 5 MINUTES AND RINSE. active Not Available Not Available No t Available trazodone 50 mg tablet active Not Available Not Available Not Available cetirizin e 10 mg tablet TAKE 1 TABLET DAILY active Not Available Not Available No t Available ibuprofen 800 mg tablet TAKE 1 TABLET BY MOUTH EVERY 12 HOURS NEEDED PAIN 09/09 completed Not Available Not Available Not Available sumatript an 25 mg tablet TAKE 1 TAB AT ONSET OF HEADACHE IF NO RELIEF MAY REPEAT 1 TAB AT LEAST 2 HR AFTER. MAX 4 TABS/24 HR active Not Available Not Available No t Available Synthroid 125 mcg tablet Take 1 tablet every day by oral route. 2023 active Not Available Not Available Not Avai lable sertralin e 100 mg tablet active Not Available Not Available Not Available amlodipin e 5 mg tablet active Not Available Not Available Not Available tramadol 50 mg tablet TAKE 1 TABLET BY MOUTH EVERY 6 HOURS NEEDED FOR PAIN active Not Available Not Available No t Available phentermi ne 30 mg capsule TAKE ONE CAPSULE BY MOUTH EVERY MORNING BEFORE BREAKFAS T 09/09 completed Not Available Not Available Not Available ketorolac 10 mg tablet TAKE 1 TABLET BY MOUTH EVERY 8 HOURS NEEDED FOR PAIN. DO NOT TAKE OTHER NSAIDS. MAY TAKE TYLENOL. 09/09 completed Not Available Not Available Not Available famotidin e 20 mg tablet active Not Available Not Available Not Available metoclopr amide 5 mg tablet TAKE 1 TABLET BY MOUTH DAILY NEEDED FOR NAUSEA AND VOMITING active Not Available Not Available No t Available methocarb shawn 750 mg tablet TAKE 1 TABLET BY MOUTH AT BEDTIME 09/09 completed Not Available Not Available Not Available trazodone 100 mg tablet TAKE 1/2 TO 1 TABLET BY MOUTH AT BEDTIME NEEDED INSOMNIA 07/01 completed Not Available Not Available Not Available dicyclomi ne 20 mg tablet active Not Available Not Available Not Available temazepam 30 mg capsule TAKE ONE CAPSULE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 [facility] to [facility] (previously was sent to [facility]). Discussed GLP-1s vs metformin. Patient diagnosed with T2DM in May 2024 after A1C was found to be 6.5%. Attempted to start Mounjaro, however patient insurance did not approve since she never tried metformin. Most recent A1C in prediabetes range 6.4% as of August 2024. Discussed trial of metformin. Patient would like to start GLP-1 for her HERLINDA. She uses CPAP machine nightly. Discussed she is a good candidate for Zepbound given her obesity, HERLINDA, HLD and prediabetes. Due to co morbidities she is at elevated risk of stroke and CVD. She would like to try this medication. She requests phone number of surgeon for lipoma removal. This was provided to her today. She does not have any other questions or concerns today and otherwise feels well overall. ALIRIO Valderrama [address] [place], [address], [facility] 09/27/2024 16:52:05 OBGyn Episode No OBEpisode recorded.
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
--- OUTSIDE RECORDS SUMMARY | 2024-10-13 15:08 | XMS_ITS | Continuity of Care Document ---
Author Organization [facility] Address [address] [address] Phone Care Team Providers Care Local Bulk Driver Name Role Phone Herber Garcia MD Unavailable Unavailable Procedures Procedure Date 2 D Echo With Colorflow Advance Directives Directive Yes / No Effective Date File Name No Information Encounters Encounter Description Practice Location Reason(s) For Visit Diagnoses Date Provider Providers Copied on Encounter [facility], [address] [place] [address], [id number], [place] tel:[phone] No Information Jose Craven. [address] [facility] [address], [place], [id number] , [place]. tel:[phone] Family History Family Member Type Diagnosis Age At Onset No Information Payers Payer name Insurance type Covered republican ID Authoriza tion(s) VIJAY GRAYSON [id number] Social History Type Description Quantity Date Captured [...]
--- OUTSIDE RECORDS SUMMARY | 2024-10-13 15:08 | XMS_ITS | Encounter Summary ---
Author Organization [facility] Address [address] [place] [address] Care Team Providers Care Cushion Former Name Role Phone Sly Avery DO Primary Care Provider + [phone] Andry Kiser MD Primary Care Provider [phone] Sly Avery DO Primary Care Provider + [phone] Carlie Tillman MD Unavailable [phone] Emery Guerrero MD Unavailable [phone] Encounter Details Date Type Department Care Team (Late st Contact Info) Description 04/18/2016 Prep for Surgery [facility] OBGYN IP [address] [place] [address] Carlie Tillman MD [address] [place] [address] Social History Tobacco Use Types Packs/Day Years Used Date Smoking Tobacco: Never Alcohol Use Standard Drinks/Week Comments Yes 2 (1 standard drink = 0.6 oz pur e alcohol) Comments No Sex and Gender Information Value Date Recorded Sex Assigned at Female 07/09/2024 8:46 AM EST Legal Sex Female 3:52 PM EDT Gender Identity Female 07/09/2024 8:46 AM EST Sexual Orientation Heterosexual (straight) 07/09 8:46 AM EST documented as of this encounter H&P Notes * Carlie Tillman MD - 04/18/2016 11:20 AM EDT HEAD KNITTING MACHINE FIXER History & Physical Admit Date: No admission [...] equivalent, 2 Glasses of wine per week Dairy Cattle Farm Worker History LMP Postmenopausal Age at Menarche Age at First Age at Menopause Dairy Cattle Farm Worker History Comments Sexual Activity Not Asked; No partner data on record Contraception No contraception data on record Dairy Cattle Farm Worker Medical History Dairy Cattle Farm Worker Surgical History HEAD KNITTING MACHINE FIXER History Menopause: postmenopausal Allergies Allergies Allergen Reactions [...] Studies office u/s reveals endometrial polyps, anteverted [id number] uterus, normal ovaries Sign: Carlie Tillman MD 04/18/2016 11:20 AM documented in this encounter Plan of Treatment Upcoming Encounters Date Type Department Care Team (Late st Contact Info) Description 10/25/2024 4:30 PM EDT Office Visit [facility] Physicians Department Of Vocational Rehabilitation Specialist [place] [address] [place] [phone] Carlie Tillman MD [address] [place] [address] 11/08/2024 11:30 AM EDT Office Visit [facility] Department of Pulmonology [place] 1260 [facility] 109 [place] [phone] Janessa Gonzalez, DECORATING MACHINE TENDER [address] [place] [address] 11/16/2024 2:20 PM EDT Consult [facility] Heart & Vascular [facility] [address] [phone] Emery Guerrero MD [address] [address] 12/03/2024 1:00 PM EDT Consult [facility] Department of Endocrinology [place] 1260 [facility] [address] [place] [phone] Shazia Rasheed MD [address] [place] [address] 12/20/2024 1:30 PM EDT Consult [facility] [address] [facility] [address] [place] [phone] Cora Claire, DECORATING MACHINE TENDER 85 [facility] [place] [address] [place] [address] documented as of this encounter Visit Diagnoses Not on filedocumented in this encounter Care Teams Cushion Former Relationship Specialty Start Date End Date Sly Avery, DO PCP - General Internal Medicine 01/05/16 10/31/16 Andry Kiser MD PCP - General Internal Medicine 11/01/16 10/11/17 Sly Avery, PCP - General Internal Medicine 10/12/17 Carlie Tillman MD [address] [address] Obstetrics and Gynecology 09/02/22 Emery Guerrero MD [address] [place] [address] Primary Golf Course Laborer Cardiovascular Disease 08/10/24 documented as of this encounter
--- OUTSIDE RECORDS SUMMARY | 2024-10-13 15:08 | XMS_ITS | Encounter Summary ---
Author Organization [facility] Address [address] [place] [address] Care Team Providers Care Manager It Security Name Role Phone Sly Avery DO Primary Care Provider + [phone] Carlie Tillman MD Unavailable [phone] Emery Guerrero MD Unavailable [phone] Encounter Details Date Type Department Care Team (Late st Contact Info) Description 10/11/2024 Scanned Document [facility] [address] [place] [address] Cirilo Sinclair MD [address] [place], [place] [id number] Social History Tobacco Use Types Packs/Day Years [...] Description 10/25/2024 4:30 PM EDT Office Visit [facility] Department Of Process Line Operator [place] [address] [place] [address] Carlie Tillman MD [address] [place] [address] 11/08/2024 11:30 AM EDT Office Visit [facility] Department of Pulmonology [place] [address] [facility] [address] [place] [address] Janessa Gonzalez, MICROSYSTEMS ENGINEER [address] [place] [address] 11/16/2024 2:20 PM EDT Consult [facility] Heart & Vascular [place] [address] [phone] Emery Guerrero MD [address] [address] 12/03/2024 1:00 PM EDT Consult [facility] Department of Endocrinology [place] 1260 [facility] [address] [place] [phone] Shazia Rasheed MD [address] [place] [address] 12/20/2024 1:30 PM EDT Consult [facility] 85 [facility] [address] [place] [phone] Guerline Cora Mckeon, MICROSYSTEMS ENGINEER 85 [facility] [address] [place], [place] [phone] documented as of this encounter Visit Diagnoses Not on filedocumented in this encounter Care Teams Manager It Security Relationship Specialty Start Date End Date Sly Avery DO PCP - General Internal Medicine 10/12/17 Carlie Tillman MD 1210 [facility] [address] [place] [address] Obstetrics and Gynecology 09/02/22 Emery Guerrero MD [address] [place] [address] Primary Run Lead Cardiovascular Disease 08/10/24 documented as of this encounter
--- OUTSIDE RECORDS SUMMARY | 2024-10-13 15:08 | XMS_ITS | Clinical Summary ---
Author Organization [employer] Address [address] [place] [address] 7[address] [place] [address] Care Team Providers Care Nuclear Process Engineer Name Role Phone Unavailable Primary Care Provider [...] to complete this topic Insurance [facility]
--- OUTSIDE RECORDS SUMMARY | 2024-10-13 15:08 | XMS_ITS | Clinical Summary ---
Author Organization [facility] Building Address [address] [place] [address] Phone Care Team Providers Care Field Contact Technician Name Role Phone Andry Kiser MD Primary Care Provider [phone] Allergies Active Allergy Reactions Criticality Noted Date [...] level 07/17/2016 Vertigo 07/17/2016 Affective bipolar disorder ([facility] V24, [facility] V28) 07/05/2016 Right carpal tunnel syndrome 04/10/2016 CN [...] COLONOSCOPY, CONSTIPATION; Surgeon: Aryan Dudley DO; Location: [facility]; Service: Gastroenterology; Laterality: N/A; MYOMECTOMY 2015 [...] reflux disease) DX:GERD (gastroesophageal reflux disease) Stroke (CMS/HCC V24, CMS/HCC V28) DX:Stroke ([facility]);COMMENT: minor stroke per pt Family History Medical [...] 1:00 PM EDT Consult [facility] [place] [address] [place] [address] Trinidad Christine, ALIRIO [address] [place] [address] Health Maintenance Due Date Last Done Comments [...] Health Maintenance Results * Depression Screening (07/22/2022) Depression Screening Abstracted us Historical Provider HEALTH MAINTENANCE Final Result * Annual BMP Blood Test (07/20/2022) Annual BMP Blood Test Abstracted us Historical Provider HEALTH MAINTENANCE Final Result * (ABNORMAL) Lipid panel (07/20/2022) LDL/HDL Ratio 5.7(A) <=5 Triglycerides 481(A) <=150 mg/dL Cholesterol 294(A) <=200 mg/dL HDL 52 >=50 mg/dL Blood Venous blood specimen / Unknown Historical Provider LAB BLOOD ORDERABLES Maria D l Result * Colonoscopy (09/25/2020) Pathologist [facility] Colonoscopy No Interpertation , Abstracted Anatomical Region [...] your patient to us, Torres Araujo MD [id number] (Electronically Signed - 10/20/2018 12:30) Copy: ANDRY ??BRANDAN WILDER [address] [address] PATIENT , ?? Procedure Note [...] your patient to us, Torres Araujo MD [id number] (Electronically Signed - 10/20/2018 12:30) Copy: ANDRY KISER MD [address] [address] PATIENT , us Radiology Results Historical MD MILES BI PROCEDURE S Final Result from Last 3 Months or Most Recently Relevant to Health Maintenance Insurance MEDICARE Care Teams Field Contact Technician Relationship Specialty Start Date End Date Andry Kiser MD [address] [place] [id number] PCP - General Family Medicine 10/08/16
--- OUTSIDE RECORDS SUMMARY | 2024-10-13 15:08 | XMS_ITS | Encounter Summary ---
Author Organization [facility] Address [address] [place] [address] Care Team Providers Care Six Pack Packer Name Role Phone Sly Avery DO Primary Care Provider [phone] Carlie Tillman MD Unavailable [phone] Emery Guerrero MD Unavailable [phone] Encounter Details Date Type Department Care Team (Late st Contact Info) Description 08/08/2023 Scanned Document [facility] Department of Pulmonology [place] [address] [place] [address] [address] [place] [address] Wendi Hernandez MD 1260 [facility] [address] [place] [address] Social History Tobacco Use Types Packs/Day Years [...] Description 10/25/2024 4:30 PM EDT Office Visit [facility] Department Of Senior Backup Administrator [place] [address] [place] [address] Carlie Tillman MD [address] [place] [address] 11/08/2024 11:30 AM EDT Office Visit [facility] Department of Pulmonology [place] 1260 [facility] 109 [place] [address] Janessa Gonzalez, ENTRANCE GUARD [address] [place] [address] 11/16/2024 2:20 PM EDT Consult [facility] Heart & Vascular [facility] [address] [phone] Emery Guerrero MD [address] [address] 12/03/2024 1:00 PM EDT Consult [facility] Department of Endocrinology [place] 1260 [facility] [address] [place] [address] Shazia Rasheed MD [address] [place] [address] 12/20/2024 1:30 PM EDT Consult [facility] 85 [facility] 1000 [place] [phone] Guerline Cora Mckeon, ENTRANCE GUARD 85 [facility] 1000 [place], [place] [phone] documented as of this encounter Visit Diagnoses Not on filedocumented in this encounter Care Teams Six Pack Packer Relationship Specialty Start Date End Date Sly Avery, DO PCP - General Internal Medicine 10/12/17 Carlie Tillman MD [address] [address] Obstetrics and Gynecology 09/02/22 Emery Guerrero MD [address] [place] [address] Primary Cath Laboratory Technician Cardiovascular Disease 08/10/24 documented as of this encounter
--- OUTSIDE RECORDS SUMMARY | 2024-10-13 15:08 | XMS_ITS | Encounter Summary ---
Author Organization [facility] Address [address] [place] [address] Care Team Providers Care First Officer Name Role Phone Sly Avery DO Primary Care Provider [phone] Carlie Tillman MD Unavailable [phone] Emery Guerrero MD Unavailable [phone] Encounter Details Date Type Department Care Team (Late Contact Info) Description 12/19/2023 Scanned Document [facility] Department Of Rental Clerk [employer] [place] [address] [place] [address] Carlie Tillman MD [address] [place] [address] Social History Tobacco Use Types Packs/Day Years [...] Description 10/25/2024 4:30 PM EDT Office Visit [facility] Department Of Rental Clerk [employer] [place] [address] [place] [address] Carlie Tillman MD [address] [place] [address] 11/08/2024 11:30 AM EDT Office Visit [facility] Department of Pulmonology [place] 1260 [facility] 109 [place] [phone] Janessa Gonzalez, ROLL COATING MACHINE OPERATOR [address] [place] [address] 11/16/2024 2:20 PM EDT Consult [facility] Heart & Vascular [facility] 7 [facility] 201 [place] [phone] Emery Guerrero MD [address] [address] 12/03/2024 1:00 PM EDT Consult [facility] Department of Endocrinology [place] 1260 [facility] [address] [place] [phone] Shazia Rasheed MD [address] [place] [address] 12/20/2024 1:30 PM EDT Consult [facility] 85 [facility] 1000 [place] [address] Guerline Cora Mckeon, ROLL COATING MACHINE OPERATOR 85 [facility] 1000 [place], [place] [phone] documented as of this encounter Visit Diagnoses Not on filedocumented in this encounter Care Teams First Officer Relationship Specialty Start Date End Date Sly Avery, PCP - General Internal Medicine 10/12/17 Carlie Tillman MD 1210 [facility] [address] [place] [address] Obstetrics and Gynecology 09/02/22 Emery Guerrero MD 1 [place] [address] Primary Literature Teacher Cardiovascular Disease 08/10/24 documented as of this encounter
--- OUTSIDE RECORDS SUMMARY | 2024-10-13 15:08 | XMS_ITS | Encounter Summary ---
Author Organization [facility] Address [address] [place] [address] Care Team Providers Care Check Examiner Name Role Phone Sly Avery DO Primary Care Provider [phone] Carlie Tillman MD Unavailable [phone] Emery Guerrero MD Unavailable [phone] Reason for Referral * Gastroenterology (Routine) - Authorized Specialty Diagnoses / Procedures Referred By Contac t Referred To Contact Gastroenterology Diagnoses Constipation, unspecified constipation type Ana Oseguera PA-C [address] [facility] 350 [place] [address] Phone: tel: fax: Cirilo calabrese MD 85 [facility] 1000 [place] [address] Phone: tel: fax: Referral ID Status Reason Start Date Expiration Date V isits Requested Visits Authorized [id number] Authorized Consult 10/12/2024 10/13/2025 1 1 Question Answer Select Referral Type: Consult Encounter Details Date Type Department Care Team (Late st Contact Info) Description 10/12/2024 Transcribe Orders [facility] 85 [facility] [address] [place] [phone] Ana Oseguera PA-C [address] [place] [address] Constipation, unspecified constipation type (Primary Dx) Social History Tobacco Use Types Packs/Day Years [...] Description 10/25/2024 4:30 PM EDT Office Visit [facility] Department Of Tower Air Traffic Control Specialist [place] [address] [place] [address] Carlie Tillman MD [address] [place] [address] 11/08/2024 11:30 AM EDT Office Visit [facility] Department of Pulmonology [place] [address] [facility] [address] [place] [phone] Janessa Gonzalez APRN [address] [place] [address] 11/16/2024 2:20 PM EDT Consult [facility] Heart & Vascular [place] [address] [phone] Emery Guerrero MD [address] [address] 12/03/2024 1:00 PM EDT Consult [facility] Department of Endocrinology [place] 1260 [facility] [address] [place] [address] Shazia Rasheed MD 1260 [place], [place] [address] 12/20/2024 1:30 PM EDT Consult [facility] 85 [facility] [address] [place] [address] Guerline Cora Mckeon, CLINICAL PATHOLOGIST 85 [facility] 1000 [place], [place] [phone] Scheduled Referrals Name Type Priority Associated Diagnoses Order Schedule Amb Referral to Gastroenterology Outpatient Referral Routine Constipation, unspecified constipation type Ordered: 10/12/2024 documented as of this encounter Visit Diagnoses Diagnosis Constipation, unspecified constipation type- Primary documented in this encounter Care Teams Check Examiner Relationship Specialty Start Date End Date Sly Avery DO PCP - General Internal Medicine 10/12/17 Carlie Tillman MD 1210 [facility] 106 [place] [address] Obstetrics and Gynecology 09/02/22 Emery Guerrero MD 1 [place] [address] Primary Bombsight Specialist Cardiovascular Disease 08/10/24 documented as of this encounter
--- OUTSIDE RECORDS SUMMARY | 2024-10-13 15:08 | XMS_ITS | Encounter Summary ---
Author Organization [facility] Address [address] [place] [address] Care Team Providers Care Database Reporting Consultant Name Role Phone Sly Avery DO Primary Care Provider [phone] Carlie Tillman MD Unavailable [phone] Emery Guerrero MD Unavailable [phone] Encounter Details Date Type Department Care Team (Late st Contact Info) Description 10/11/2024 Scanned Document [facility] [address] [place] [address] Cirilo Sinclair MD [address] [place], [place] [phone] Social History Tobacco Use Types Packs/Day Years [...] EDT Office Visit [facility] Department Of Title Insurance Sales Representative [place] [address] [place] [address] Carlie Tillman MD [address] [place] [address] 11/08/2024 11:30 AM EDT Office Visit [facility] Department of Pulmonology [place] 1260 [facility] 109 [place] [address] Janessa Gonzalez, FLOWER POT PRESS OPERATOR [address] [place] [address] 11/16/2024 2:20 PM EDT Consult [facility] Heart & Vascular [facility] [place] [address] [phone] Emery Guerrero MD [address] [address] 12/03/2024 1:00 PM EDT Consult [facility] Department of Endocrinology [place] 1260 [facility] [address] [place] [address] Shazia Rasheed MD 1260 [place] [address] 12/20/2024 1:30 PM EDT Consult [facility] 85 [facility] 1000 [place] [address] Guerline Cora Mckeon, FLOWER POT PRESS OPERATOR 85 [facility] 1000 [place], [place] [phone] documented as of this encounter Visit Diagnoses Not on filedocumented in this encounter Care Teams Database Reporting Consultant Relationship Specialty Start Date End Date Sly Avery DO PCP - General Internal Medicine 10/12/17 Carlie Tillman MD 1210 [facility] [address] [place] [address] Obstetrics and Gynecology 09/02/22 Emery Guerrero MD 1 [place] [address] Primary Supervisor [employer] Cardiovascular Disease 08/10/24 documented as of this encounter
--- OUTSIDE RECORDS SUMMARY | 2024-10-13 15:08 | XMS_ITS | Clinical Summary ---
Author Organization [facility] Address [address] [place] [address] Care Team Providers Care Mixer Attendant Name Role Phone Andry Kiser MD Primary Care Provider [phone] Allergies Active Allergy Reactions Criticality Noted Date [...] 1 01/15/2024 Active ergocalciferol (VITAMIN D2) capsule 98593 units Take 1 capsule (50,000 Units total) [...] Advance Directives For more information, please contact: [phone] Latest Code Status on File Code Status [...] following way: discussion with patient. Care Teams Mixer Attendant Relationship Specialty Start Date End Date Andry Kiser MD PCP - General Family Medicine 10/08/16
== END 2024-10-13 13:27 | disposition home or self-care (01) ==
LOC: HO.HMCH 12:46
PROVIDERS: PCP Family Medicine; Visit Provider Internal Medicine
DX: I10 Essential (primary) hypertension (principal); F31.9 Bipolar disorder, unspecified; E66.9 Obesity, unspecified; Z68.33 Body mass index [BMI] 33.0-33.9, adult; E78.00 Pure hypercholesterolemia, unspecified; E03.9 Hypothyroidism, unspecified; R10.9 Unspecified abdominal pain; J01.90 Acute sinusitis, unspecified; E55.9 Vitamin D deficiency, unspecified; K21.9 Gastro-esophageal reflux disease without esophagitis; G47.00 Insomnia, unspecified; F41.9 Anxiety disorder, unspecified

== ENCOUNTER → 2024-10-13 12:46 | Outpatient (BNVA) | payer MEDICARE, OTHER, SELFPAY | PROVIDERS: PCP Family Medicine; Visit Provider Internal Medicine | DX: I10 Essential (primary) hypertension (principal); E78.00 Pure hypercholesterolemia, unspecified; E03.9 Hypothyroidism, unspecified; R10.9 Unspecified abdominal pain; J01.90 Acute sinusitis, unspecified; E55.9 Vitamin D deficiency, unspecified; K21.9 Gastro-esophageal reflux disease without esophagitis; G47.00 Insomnia, unspecified; F41.9 Anxiety disorder, unspecified; F31.9 Bipolar disorder, unspecified; E66.9 Obesity, unspecified; Z68.33 Body mass index [BMI] 33.0-33.9, adult; Z79.899 Other long term (current) drug therapy | CPT/HCPCS: 96127; 99202 ==

== ENCOUNTER 2025-02-10 22:11 | Emergency (ER) | payer MEDICARE, OTHER, SELFPAY ==
[2025-02-10 22:16] VITALS: BP 164/82; PULSE 84; O2SAT 96
[2025-02-10 22:29] VITALS: BP 167/99; PULSE 79; RESP 16; TEMP 36.9; O2SAT 99; BMI 30.9
[2025-02-11 00:24] LABS: MANUAL DIFF FLAG NO
[2025-02-11 00:28] LABS: Hematocrit 33.6 % (37.0-47.0); Hemoglobin 11.7 g/dl (12.0-16.0); Imm Gran Abs Auto 0.01 X10*3/uL (0.00-0.03); Imm Gran Pct Auto 0.2 % (0.0-0.4); Lymphocytes Absolute Auto 2.5 X10*3/uL (1.2-4.9); Mean Corpuscular HGB Conc 34.8 g/dl (31.0-35.0); Mean Corpuscular Hemoglobin 30.6 pg (27.0-33.0); Mean Corpuscular Volume 88.0 fL (80.0-98.0); NRBC Abs Auto 0.000 X10*3/uL (0.0-0.012); NRBC Pct Auto 0.0 /100WBC (0.0-0.2); Platelet Count 287 X10*3/uL (160-400); Red Blood Count 3.82 X10*6/uL (4.20-5.50); White Blood Count 6.2 X10*3/uL (4.8-10.8)
[2025-02-11 00:39] LABS: Alanine Aminotransferase 34 U/L (0-31); Albumin Level 4.3 g/dL (3.5-5.0); Alkaline Phosphatase 70 U/L (39-117); Anion Gap 12 (12-20); Aspartate Amino Transferase 31 U/L (5-31); Blood Urea Nitrogen 24 mg/dL (9-16); Calcium 9.5 mg/dL (8.4-10.2); Carbon Dioxide 26 mmol/L (22-29); Chloride 104 mmol/L (96-108); Creatinine Clr Calc Pharmacy 52.2; Estimated Glomerular Filt Rate 51; Lipase 113 U/L (8-78); Potassium 4.3 mmol/L (3.3-5.1); Sodium 138 mmol/L (135-145); Total Protein 7.3 g/dL (6.5-8.0)
[2025-02-11 00:39] LABS: Appearance Urine Clear; Glucose Urine UA Negative (Negative); PH 7.0 (5.0-9.0); Specific Gravity - Urine 1.010 (1.005-1.025); UMIC TRIGGER UACC YES
[2025-02-11 01:27] VITALS: BP 143/78; PULSE 68; RESP 18; TEMP 36.7; O2SAT 96
[2025-02-11 04:09] VITALS: BP 146/68; PULSE 76; TEMP 36.6; O2SAT 99
--- NOTE | 2025-02-11 04:19 | ED.GENADULT ---
HPI - General Adult General Chief complaint: Weakness Stated complaint: ABD PAIN Time Seen by Provider: 02/11/25 04:08 Source: patient Mode of arrival: ambulatory Limitations: no limitations History of Present Illness ED Provider: Dr. Nilda Donovan HPI narrative: Patient comes to the emergency room with a plethora of complaints including breath smelling like feces, burning with urination, sensation that she is not walking right although her gait is normal, complaining of kidney pain, complaining of abdominal pain, complaining of possible having stool in the vaginal canal, complaining of fatigue and generalized malaise. Patient denies urinary fecal or incontinence. Related Data Home Medications ?Medication ?Instructions ?Recorded ?Confirmed amlodipine 5 mg tablet 5 mg PO DAILY 10/13/24 10/13/24 aripiprazole 2 mg tablet 2 mg PO DAILY 10/13/24 10/13/24 atorvastatin 80 mg tablet 80 mg PO DAILY 10/13/24 10/13/24 bupropion HCl 300 mg 24 hr tablet, 300 mg PO DAILY 10/13/24 10/13/24 extended release cariprazine 1.5 mg capsule 1.5 mg PO DAILY 10/13/24 10/13/24 (Vraylar) cetirizine 10 mg tablet 10 mg PO DAILY 10/13/24 10/13/24 clonazepam 2 mg tablet 2 mg PO TID PRN 10/13/24 10/13/24 dicyclomine 20 mg tablet 20 mg PO TID 10/13/24 10/13/24 estradiol 2 mg (7.5 mcg/24 hour) 1 vag ring vaginal [id number] 10/13/24 10/13/24 vaginal ring (Estring) famotidine 20 mg tablet 20 mg PO BID 10/13/24 10/13/24 gabapentin 100 mg capsule 100 mg PO DAILY 10/13/24 10/13/24 ibuprofen 800 mg tablet 800 mg PO Q8H PRN 10/13/24 10/13/24 levothyroxine 125 mcg capsule 125 mcg PO DAILY 10/13/24 10/13/24 (Tirosint) linaclotide 145 mcg capsule 145 mcg PO DAILY 10/13/24 10/13/24 (Linzess) losartan 100 1 tab PO DAILY 10/13/24 10/13/24 mg-hydrochlorothiazide 12.5 mg tablet lurasidone 20 mg tablet 20 mg PO DAILY 10/13/24 10/13/24 metformin 500 mg tablet 500 mg PO BID 10/13/24 10/13/24 mometasone 50 mcg/actuation nasal 2 spray intranasal DAILY 10/13/24 10/13/24 spray olopatadine 0.6 % nasal spray spray intranasal 10/13/24 10/13/24 omega-3 acid ethyl esters 1 gram 1 cap PO BID 10/13/24 10/13/24 capsule temazepam 30 mg capsule 30 mg PO BEDTIME PRN 10/13/24 10/13/24 trazodone 100 mg tablet 100 mg PO BEDTIME 10/13/24 10/13/24 dexamethasone 4 mg tablet 4 mg PO ONCE 10/17/24 10/17/24 ergocalciferol (vitamin D2) 1,250 1,250 mcg PO QWEEK 10/17/24 10/17/24 mcg (50,000 unit) capsule (Vitamin D2) sertraline 100 mg tablet 100 mg PO DAILY 10/17/24 10/17/24 tirzepatide (weight loss) 2.5 2.5 mg subcut QWEEK 10/17/24 10/17/24 mg/0.5 mL subcutaneous pen injector (Zepbound) Previous Rx's ?Medication ?Instructions ?Recorded ibuprofen 400 mg tablet 400 mg PO Q6H PRN pain #20 tabs 07/16/22 lidocaine 5 % topical patch 1 patch topical DAILY #15 ea 08/16/23 (Lidoderm) ketorolac 10 mg tablet 10 mg PO Q8H PRN pain #10 tabs 01/10/24 metoclopramide HCl 5 mg tablet 5 mg PO DAILY PRN nausea and 01/10/24 (Reglan) vomiting #10 tabs hydrocortisone 2 % topical gel 1 appl topical TID #28 grams 01/24/24 dicyclomine 10 mg capsule 10 mg PO TID PRN abdominal pain 10/05/24 #14 caps sumatriptan succinate 25 mg tablet See Rx Instructions PO .COMPLEX #4 10/05/24 tabs amoxicillin 875 mg-potassium 1 tab PO BID 10 days #20 tabs 10/13/24 clavulanate 125 mg tablet cyclobenzaprine 5 mg tablet 5 mg PO BID PRN muscle spasm #7 02/11/25 tabs Allergies Allergy/AdvReac Type Severity Reaction Status Date / Time No Known Allergies Allergy Verified 02/10/25 22:34 Review of Systems Review of Systems: Constitutional : No Weight loss, No Fever, No Chills, No Night Sweats, complaining of fatigue, weakness ENT/Mouth : No Hearing loss, No Ear Pain, No Nasal Congestion, No Sinus Pain, No Hoarseness, No sore throat, No Rhinorrhea, No Swallowing Difficulty Eyes: No Eye Pain, No Swelling, No Redness, No Foreign Body, No Discharge, No Vision Changes Cardiovascular : No Chest Pain, No SOB, No Dyspnea on Exertion, No Orthopnea, No Edema, No Palpitations Respiratory : No Cough, No Sputum, No Wheezing, No Smoke Exposure, No Dyspnea Gastrointestinal : No Nausea, No Vomiting, No Diarrhea, No Constipation, No abdominal Pain, No Hematochezia, No Melena Genitourinary : no irregular bleeding, No Dysuria, No Urinary Frequency, No Hematuria, No Urinary Incontinence, No Urgency, No Flank Pain, No Urinary Flow Changes, No Hesitancy Musculoskeletal : Complaining of bilateral back pain, No Myalgias, No Joint Swelling Skin : No Skin Lesions, No rash Neuro : No Weakness, No Numbness, No Paresthesias, No Loss of Consciousness, No Dizziness, No Headache Psych : No Anxiety/Panic, No Depression, No SI/HI/AH/VH, No Social Issues, Heme/Lymph: No Bruising, No Bleeding,No Lymphadenopathy Endocrine : No Polyuria, No Polydipsia, No Temperature Intolerance PMFSH Past Medical History Medical History Elevated LFTs Obesity (BMI 30-39.9) Bipolar depression Insomnia GERD without esophagitis Vitamin D deficiency Pure hypercholesterolemia Essential hypertension Acquired hypothyroidism Family History Family History Other Breast cancer Cancer of ear Diabetes High cholesterol Hypertension Stomach cancer Social History Social History Housing: Apartment Patient Tobacco Use Status: Never used Tobacco e-Cigarette/Vaping Use: Never Used Advance Directives: No Advance Directives Information Provided: Yes Do you have a plan to hurt others: No Plan service: No Current occupational status: retired Current occupational exposures/hazards: No Cognitive needs: No Hearing needs: No Vision needs: Yes Physical Exam ED Exam Exam: Appearance: Alert. Oriented X3. No acute distress. Well-appearing Eyes: Pupils equal, round and reactive to light. ENT: Pharynx normal. Neck: Normal inspection. Neck supple. No lymph nodes noted. No crepitus CVS: Normal heart rate and rhythm. Pulses normal. Normal S1 and S2 Respiratory: No respiratory distress. Breath sounds normal. No Wheezing. No rales Abdomen: Soft and nontender. No rigidity. No distention. Back: No CVA tenderness, pain over the paraspinal muscles. Skin: Skin warm and dry. Normal skin color. Normal skin turgor. Extremities: No lower extremity edema. No Lacerations. No Rash Neuro: Oriented X 3. No motor deficit. No sensory deficit. Moving all extremities. No slurred speech. CN 2 through 12 grossly intact Psych: calm, cooperative, normal affect Vital Signs: Vital Signs - 24 hr 02/10/25 22:29 02/11/25 01:27 02/11/25 04:09 Temperature 98.4 F 98.1 F 97.8 F Pulse Rate 79 68 76 Respiratory Rate 16 18 Blood Pressure 167/99 H 143/78 H 146/68 H Pulse Oximetry 99 96 99 Oxygen Delivery Method Room Air Room Air Room Air BMI result Body Mass Index 30.9 Medications Administered Discontinued Medications Generic Name Dose Route Start Last Admin Trade Name Freq PRN Reason Stop Dose Admin Ketorolac Tromethamine 15 mg 02/11/25 04:18 02/11/25 04:30 Ketorolac Tromethamine 15 Mg/Ml Vial IM 02/11/25 04:19 15 mg ONCE ONE Administration Medical Decision Making Medical Decision Making [facility] Narrative: My interpretation of labs: No significant abnormality in patient's hematology and chemistry, at baseline, lipase slightly elevated at 113, however there is no epigastric pain, urinalysis negative for UTI I discussed with the patient that she likely has a mild viral syndrome, back musculoskeletal pain. Patient's physical exam is reassuring. I spent a prolonged period of time talking to the patient about her symptoms. Every time that we addressed and reassured 1 symptom, patient would come up with different symptom. No clear pattern of symptoms, most of them unrelated. Overall, seems that patient is very anxious about her health, patient was reassured. It is unlikely that patient has a rectal vaginal fistula, that would be a significant UTI an other symptoms. I was informed by the patient's nurse, that when patient was in triage, patient was reading symptoms of of [employer] from her phone Patient was given a dose of IM ketorolac. Patient instructed to follow-up with her primary care physician. Differential Diagnosis Differential Diagnoses: The differential diagnosis associated with the presentation includes (As above, anxiety) Lab Data MDM Lab Attestation statement: I reviewed the patient's lab results. 02/11/25 00:18 02/11/25 00:18 Labs: Lab Results 02/11/25 02/11/25 Range/Units 00:18 00:26 WBC 6.2 (4.8-10.8) X10*3/uL RBC 3.82 L (4.20-5.50) X10*6/uL Hgb 11.7 L (12.0-16.0) g/dl Hct 33.6 L (37.0-47.0) % MCV 88.0 (80.0-98.0) fL MCH 30.6 (27.0-33.0) pg MCHC 34.8 (31.0-35.0) g/dl RDW 13.2 (11.0-16.0) % Plt Count 287 (160-400) X10*3/uL MPV 9.1 L (9.4-12.3) fL Immature Gran % (Auto) 0.2 (0.0-0.4) % Neut % (Auto) 46.7 (45-73) % Lymph % (Auto) 41.0 H (20-40) % Grant % (Auto) 7.4 (2-11) % Eos % (Auto) 3.7 (0-4) % Baso % (Auto) 1.0 (0-2) % Lymph # (Auto) 2.5 (1.2-4.9) X10*3/uL Grant # (Auto) 0.5 (0.1-1.2) X10*3/uL Eos # (Auto) 0.2 (0.0-0.4) X10*3/uL Baso # (Auto) 0.1 (0.0-0.2) X10*3/uL Abs Immat Gran (auto) 0.01 (0.00-0.03) X10*3/uL Absolute Neuts (auto) 2.9 (2.0-8.3) x10*3/uL Absolute Nucleated RBC 0.000 (0.0-0.012) X10*3/uL Nucleated RBC % (auto) 0.0 (0.0-0.2) /100WBC Sodium 138 (135-145) mmol/L Potassium 4.3 (3.3-5.1) mmol/L Chloride 104 (96-108) mmol/L Carbon Dioxide 26 (22-29) mmol/L Anion Gap 12 (12-20) BUN 24 H (9-16) mg/dL Creatinine 1.08 (0.5-1.4) mg/dL Estim Creat Clear Calc 52.2 Estimated GFR 51 Random Glucose 91 (60-115) mg/dL Calcium 9.5 (8.4-10.2) mg/dL Total Bilirubin 0.4 (0.0-1.0) mg/dL AST 31 (5-31) U/L ALT 34 H (0-31) U/L Alkaline Phosphatase 70 (39-117) U/L Total Protein 7.3 (6.5-8.0) g/dL Albumin 4.3 (3.5-5.0) g/dL Lipase 113 H (8-78) U/L Urine Color Yellow Urine Appearance Clear Urine pH 7.0 (5.0-9.0) Ur Specific Reserve 1.010 (1.005-1.025) Urine Protein Negative (Neg-Trace) mg/dL Urine Glucose (UA) Negative (Negative) mg/dL Urine Ketones Negative (Negative) mg/dL Urine Blood Negative (Negative) Urine Nitrite Negative (Negative) Ur Leukocyte Esterase Trace H (Negative) Urine RBC 0-2 (0-2) /HPF Urine WBC 0-5 (0-5) /HPF Ur Squamous Epith Cells 0-2 (0-2) /HPF Urine Bacteria None Seen (None Seen) Hyaline Casts 0-2 (0-2) /LPF Discharge Plan Discharge Clinical Impression: Musculoskeletal pain, Acute viral syndrome Patient Disposition: Home, Self-Care Instructions: Viral Syndrome (ED), Musculoskeletal Pain (ED) Additional Instructions: Please follow-up with your primary care physician tomorrow. If you have any worsening or new symptoms, please return to the emergency room or call 911 Prescriptions: New cyclobenzaprine 5 mg tablet 5 mg PO BID PRN (Reason: muscle spasm) Qty: 7 0RF No Action ibuprofen 400 mg tablet 400 mg PO Q6H PRN (Reason: pain) Qty: 20 0RF lidocaine [Lidoderm] 5 % adhesive patch,medicated 1 patch topical DAILY Qty: 15 0RF Rx Instructions: leave on most painful area for up to 12 hrs hydrocortisone 2 % gel 1 appl topical TID Qty: 28 0RF sumatriptan succinate 25 mg tablet See Rx Instructions .ROUTE .COMPLEX Qty: 4 0RF Rx Instructions: take 1 tab at onset of headache; if no relief may repeat 1 tab after at least 2 hrs; max = 4 tabs/24 hr dicyclomine 10 mg capsule 10 mg PO TID PRN (Reason: abdominal pain) Qty: 14 0RF ketorolac 10 mg tablet 10 mg PO Q8H PRN (Reason: pain) Qty: 10 0RF Rx Instructions: Do not use this medication with NSAIDs, only Tylenol if needed metoclopramide HCl [Reglan] 5 mg tablet 5 mg PO DAILY PRN (Reason: nausea and vomiting) Qty: 10 0RF Vraylar 1.5 mg capsule 1.5 mg PO DAILY bupropion HCl 300 mg tablet extended release 24 hr 300 mg PO DAILY Linzess 145 mcg capsule 145 mcg PO DAILY metformin 500 mg tablet 500 mg PO BID losartan-hydrochlorothiazide 100-12.5 mg tablet 1 tab PO DAILY amlodipine 5 mg tablet 5 mg PO DAILY olopatadine 0.6 % spray,non-aerosol intranasal mometasone 50 mcg/actuation spray,non-aerosol 2 spray intranasal DAILY clonazepam 2 mg tablet 2 mg PO TID PRN temazepam 30 mg capsule 30 mg PO BEDTIME PRN levothyroxine [Tirosint] 125 mcg capsule 125 mcg PO DAILY omega-3 acid ethyl esters 1 gram capsule 1 cap PO BID famotidine 20 mg tablet 20 mg PO BID cetirizine 10 mg tablet 10 mg PO DAILY Estring 2 mg (7.5 mcg /24 hour) ring 1 vag ring vaginal [id number] lurasidone 20 mg tablet 20 mg PO DAILY aripiprazole 2 mg tablet 2 mg PO DAILY atorvastatin 80 mg tablet 80 mg PO DAILY trazodone 100 mg tablet 100 mg PO BEDTIME gabapentin 100 mg capsule 100 mg PO DAILY dicyclomine 20 mg tablet 20 mg PO TID amoxicillin-pot clavulanate 875-125 mg tablet 1 tab PO BID 10 Days Qty: 20 0RF ibuprofen 800 mg tablet 800 mg PO Q8H PRN sertraline 100 mg tablet 100 mg PO DAILY Zepbound 2.5 mg/0.5 mL pen injector 2.5 mg subcut QWEEK ergocalciferol (vitamin D2) [Vitamin D2] 1,250 mcg (50,000 unit) capsule 1,250 mcg PO QWEEK dexamethasone 4 mg tablet 4 mg PO ONCE Print Language: Persian
[2025-02-11 05:11] VITALS: BP 146/68; PULSE 76; RESP 18; TEMP 36.6; O2SAT 99
== END 2025-02-11 05:14 | disposition home or self-care (01) ==
PROVIDERS: Emergency Provider Emergency Medicine; PCP Internal Medicine
DX: B34.9 Viral infection, unspecified (principal); M79.10 Myalgia, unspecified site; R30.0 Dysuria; N23 Unspecified renal colic; Z79.899 Other long term (current) drug therapy
CPT/HCPCS: 36415; 80053; 81001; 83690; 85025; 96372; 99283; 99284; J1885